=== PATIENT | male | born 1970 | race Two or more races ===

== ENCOUNTER 2024-06-20 08:45 | Emergency (ER) | payer MEDICAID, SELFPAY ==
[2024-06-20 08:53] VITALS: BP 132/87; PULSE 105; RESP 18; TEMP 37.1; O2SAT 94; BMI 29.3
--- NOTE | 2024-06-20 09:14 | PD.EDRME ---
Rapid Medical Screening Exam E Arrival date/time: 06/20/24 08:45 This is a 53-year-old male that comes in with complaints of abdominal distention, abdominal pain. Patient states that he needs the fluid removed from his abdomen. Patient has a history of cirrhosis and ascites. Patient reports that he used to be an alcoholic but he no longer drinks. Patient is taking diuretics but he says is not helping. I have greeted and performed a focused initial assessment of this patient. Initial appropriate labs ordered at this time. A comprehensive ED assessment and evaluation of the patient and analysis of all test and completion of medical decision making process will be conducted by additional ED provider. Chief Complaint: Abdominal Pain Time Seen by Provider: 06/20/24 09:00 Vital signs: Vital Signs Temperature 98.8 F 06/20/24 08:53 Pulse Rate 105 H 06/20/24 08:53 Respiratory Rate 18 06/20/24 08:53 Blood Pressure 132/87 H 06/20/24 08:53 Pulse Oximetry (%) 94 L 06/20/24 08:53 Oxygen Delivery Method Room Air 06/20/24 08:53
[2024-06-20 10:05] LABS: Collection Type, Urine Pedi-Bag
[2024-06-20 10:15] LABS: Basophils % (Auto) 1 % (0-2.5); Eosinophils # (Auto) 0.1 Thou/mm3 (0.0-0.5); Eosinophils % (Auto) 2 % (0-10); Hematocrit 42.3 % (41.0-53.0); Hemoglobin 14.9 g/dL (13.5-16.0); Immature Granulocytes % (Auto) 0 % (0-0); Immature Granulocytes Auto 0.01 Thou/mm3 (0.00-0.00); Lymphocytes # (Auto) 0.7 Thou/mm3 (1.0-4.8); Lymphocytes % (Auto) 14 % (10-50); Mean Corpuscular HGB Conc 35.2 g/dl (31.0-37.0); Mean Corpuscular Hemoglobin 34.7 pg (25.0-35.0); Mean Corpuscular Volume 98 fL (80-100); Monocytes # (Auto) 0.5 Thou/mm3 (0.0-0.8); Monocytes % (Auto) 10 % (0-12); Neutrophils # (Auto) 3.9 Thou/mm3 (1.8-7.7); Neutrophils % (Auto) 74 % (37-80); Nucleated Red Blood Cell % 0 /100 WBC (0); RDW Standard Deviation 56.6 fL (35.1-43.9); White Blood Count 5.3 Thou/mm3 (3.8-10.6)
[2024-06-20 10:34] LABS: Platelet Count 61 Thou/mm3 (140-440); Slide Review Platelets confirmed
[2024-06-20 10:37] LABS: INR 1.5 (0.9-1.3); Prothrombin Time 16.3 Seconds (9.0-12.2)
[2024-06-20 10:44] LABS: Alanine Aminotransferase 39 U/L (10-49); Albumin, Serum 3.6 gm/dL (3.5-5.0); Albumin/Globulin Ratio 0.9 (1.2-2.2); Alkaline Phosphatase 116 U/L (46-116); Anion Gap 9 (7-16); Aspartate Amino Transferase 67 U/L (0-34); BUN/Creatinine Ratio 11 Ratio (12-20); Bilirubin,Total 4.3 mg/dL (0.3-1.2); Blood Urea Nitrogen 8 mg/dL (9-23); Calcium 8.4 mg/dL (8.3-10.6); Calcium (Corrected) 8.7 mg/dL (8.5-10.1); Carbon Dioxide 27.4 mMol/L (20.0-31.0); Chloride 101 mMol/L (98-107); Creatinine (Component) 0.7 mg/dL (0.6-1.3); Estimated Creatinine Clearance 128.3 mL/min (>60); Globulin 3.9 gm/dL (2.3-3.5); Glucose 112 mg/dL (74-106); Lipase 41 U/L (12-53); Osmolality,Calculated 273 (275-295); Potassium 3.6 mMol/L (3.4-5.1); Sodium 137 mMol/L (136-145); Total Protein 7.5 gm/dL (5.7-8.2); eGFR > 60 See Note
[2024-06-20 11:01] LABS: Bacteria,Urine Rare; Bilirubin,Urine 1+ (Negative); Blood,Urine Negative (Negative); Calcium Oxalate Crystals,Urine 3+; Culture Indicated,Urine Not Indicated; Glucose, Urine Negative (Negative); Hyaline Casts,Urine < 1 /hpf (0-1); Ketones,Urine 1+ (Negative); Leukocyte Esterase,Urine Negative (Negative); Nitrite,Urine Negative (Negative); PH,Urine 6.5 (5.0-7.0); Protein,Urine 1+ (Neg - Trace); RBC,Urine 1 /hpf (0-3); Specific Gravity,Urine 1.026 (1.001-1.035); Squamous Epithelial Cell,Urine 2 /hpf (0-5); Urobilinogen,Urine Negative mg/dL (0.0-1.0); WBC,Urine 5 /hpf (0-5)
[2024-06-20 11:04] LABS: Clarity,Urine Hazy (Clear/Hazy); Color,Urine Drk Yellow (Lt Yel-Yel)
--- NOTE | 2024-06-20 11:50 | PD.EDADULT ---
ED General RME/HPI General Chief complaint: Abdominal Pain Stated complaint: ABDOMINAL PAIN WITH SWELLING Time Seen by Provider: 06/20/24 09:00 Arrival date/time: 06/20/24 08:45 CC: Abdominal distention abdominal pain HPI ongoing for the past 5 months progressive increase in severity. The patient denies any shortness of breath. Patient is known for cirrhosis of the liver. Patient has not prior had any paracentesis or thoracentesis. Patient is not in any acute distress. Denies fever chills chest pain or shortness of breath. RME / HPI RME / HPI narrative: 06/20/24 08:45 This is a 53-year-old male that comes in with complaints of abdominal distention, abdominal pain. Patient states that he needs the fluid removed from his abdomen. Patient has a history of cirrhosis and ascites. Patient reports that he used to be an alcoholic but he no longer drinks. Patient is taking diuretics but he says is not helping. I have greeted and performed a focused initial assessment of this patient. Initial appropriate labs ordered at this time. A comprehensive ED assessment and evaluation of the patient and analysis of all test and completion of medical decision making process will be conducted by additional ED provider. Related Data Home Medications ?Medication ?Instructions ?Recorded ?Confirmed furosemide 40 mg tablet 40 mg PO QDAY 02/07/18 02/07/18 hydrochlorothiazide 12.5 mg capsule 12.5 mg PO QDAY 02/07/18 02/07/18 potassium chloride 10 mEq 10 meq PO QDAY 02/07/18 02/07/18 capsule,extended release Previous Rx's ?Medication ?Instructions ?Recorded spironolactone 25 mg tablet 25 mg PO BID #60 tabs 02/08/18 Allergies Allergy/AdvReac Type Severity Reaction Status Date / Time No Known Allergies Allergy Verified 06/20/24 08:47 Review of Systems Review of Systems Narrative Review of Systems: GEN: No fever, no chills, no weight loss EYES: No discharge, no visual changes, no pain HEENT: No ear pain, no congestion, no sore throat PULM: No shortness of breath, no cough, no congestion CV: No chest pain, no dyspnea on exertion, no palpitations GI: No nausea, no vomiting, no diarrhea, + pain, +distention, no constipation : No frequency, no urgency, no dysuria MUSC/SKEL: No joint pain, no back pain SKIN: No rash PSYCH: No hallucinations, no depression HEME/LYMPH: No easy bleeding or bruising tendencies NEURO: No weakness, no headache ED Exam Narrative Physical exam: [General: Not in any acute distress Head normocephalic HEENT: Within acceptable limits Neck is supple nontender Chest equal chest rise nontender to palpation Respiratory: Clear to auscultation no wheezes crackles or rubs, no tachypnea CV: Rate rhythm is regular no murmurs rubs or clicks Abdomen is distended secondary to presumed ascites, and abdomen is tympanic to palpation. Abdomen is firm but not rigid skin is not shiny. Patient has a large soft nontender umbilical hernia. Back: No CVA tenderness no spinous process tenderness from cervical spine thoracic and lumbar spine Skin: Intact no petechiae rash induration ulceration or crepitus Extremities: Moving all extremity against resistance cap refill less than 2 seconds neurosensory intact Neuro: Awake alert oriented x3 Glascow coma 15 no focal deficits] Course Quality Measures none Orders Category Date Time Status CBC Stat Lab 06/20/24 09:42 Completed Comprehensive Metabolic Panel Stat Lab 06/20/24 09:42 Completed Lipase Stat Lab 06/20/24 09:42 Completed PT [Prothrombin Time with INR] Stat Lab 06/20/24 09:42 Completed Urinalysis, C/S if Indicated Stat Lab 06/20/24 09:45 Completed Vital Signs Vital signs: Vital Signs Temperature 98.8 F 06/20/24 08:53 Pulse Rate 105 H 06/20/24 08:53 Respiratory Rate 18 06/20/24 08:53 Blood Pressure 132/87 H 06/20/24 08:53 Pulse Oximetry (%) 94 L 06/20/24 08:53 Oxygen Delivery Method Room Air 06/20/24 08:53 Discharge Plan Plan Patient Disposition: HOME (Self Care) Patient condition on transfer: Stable Prescriptions/Referrals Prescriptions/Med Rec: No Action furosemide 40 mg Tablet 40 mg PO QDAY potassium chloride 10 mEq Capsule, Extended Release 10 meq PO QDAY hydrochlorothiazide 12.5 mg Capsule 12.5 mg PO QDAY spironolactone 25 mg Tablet 25 mg PO BID Qty: 60 0RF Referrals: Ethan Beck MD [Primary Care Provider] - In 1 week Problem List Clinical Impression: Distended abdomen, Abdominal pain Patient/Caregiver Discharge Instructions Education Materials: Abdominal Pain Additional Instructions: Return tomorrow for a paracentesis. Try to get here by 8:30 in the morning. Print Language: Irish Stand Alone Forms: Saundra Award Info., Work/School Release, Patient Portal Info Letter PA/MARKETING SUPPORT COORDINATOR Supervising Physician PA/PAMELA Supervising Physician: Waldemar Sutherland ENP MDM Clinical Information Provided by: patient Medical Records reviewed [facility] Meds/Rx considered, not ordered None Labs/Rad/Tests considered, not ordered None Chronic Illness/Social Conditions Explain: Cirrhosis Labs Lab(s) Interpretation(s): CBC shows no leukocytosis anemia thrombocytopenia PT of 16.3 INR 1.5 CMP shows no significant electrolyte imbalances or renal impairment T. bili of 4.3 AST at 67 ALT 39 alk phos of 116. Lipase 41 Urine is dark yellow 1+ protein 1+ bilirubin. Imaging Imaging Interpretation(s): Patient is not in any acute distress, he is not tachypneic, not in any acute distress. At this time patient will be discharged home to return tomorrow for IR paracentesis. Patient has agreed to return. Medication Administration(s) none Diagnosis Differential Diagnosis ED Complaint MDM: Ascites, hyperbilirubinemia, electrolyte imbalance
[2024-06-20 11:52] VITALS: BP 158/98; PULSE 100; RESP 18; TEMP 37.2; O2SAT 94
== END 2024-06-20 12:11 | disposition home or self-care (01) ==
PROVIDERS: Nurse Practitioner Family; Emergency Provider Emergency Medicine; PCP Family Medicine
DX: R14.0 Abdominal distension (gaseous) (principal); R10.9 Unspecified abdominal pain; K74.60 Unspecified cirrhosis of liver
CPT/HCPCS: 36415; 80053; 81001; 83690; 85025; 85610; 99283

== ENCOUNTER 2024-06-21 08:33 | Emergency (ER) | payer MEDICAID, SELFPAY ==
[2024-06-21 08:34] VITALS: BMI 29.5
[2024-06-21 08:42] VITALS: BP 131/82; PULSE 100; RESP 19; TEMP 37.2; O2SAT 95
--- NOTE | 2024-06-21 08:52 | XR_ITS ---
Examination: Ultrasound-guided paracentesis Abdominal sonogram limited Date and time of exam: June 21, 2024 1156 hours INDICATIONS: Cirrhosis, increasing ascites and abdominal distention this week Informed consent provided. A timeout was completed verifying correct patient, procedure, site, positioning, and special adequate movement if applicable. Technique: Multiple sonographic images of the abdomen have been obtained. Appropriate area for paracentesis was marked. Local anesthesia is obtained with 1% lidocaine. Yueh catheter is successfully introduced. Findings: Abdominal sonographic images demonstrate sufficient ascitic fluid for paracentesis. After placing the Yueh catheter, 8200 cc of fluid were successfully removed. During and after completion of the procedure the patient appear in satisfactory and stable condition with no complications observed. Estimated blood loss 0 cc Impression: Abdominal ascites Successful ultrasound-guided paracentesis as described above
--- NOTE | 2024-06-21 08:53 | XR_ITS ---
Examination: CT abdomen and pelvis without contrast. Coronal 3-D reconstructions. Sagittal 2-D reconstructions. Date and time of exam:June 21, 2024 0957 hours INDICATIONS: Generalized abdominal pain and swelling today TECHNIQUE: Multiple axial images abdomen and pelvis, low dose protocols, adjustment MA KV according to patient size FINDINGS: There is a large right pleural effusion with significant atelectasis right lung Cirrhosis, liver nodular in contour with significant ascites Splenomegaly 16 cm Gallstones No pancreatic mass No hydronephrosis Aorta normal size No bowel obstruction Normal appendix Fluid containing umbilical hernia Contracted urinary bladder with wall thickening anteriorly No prostatomegaly Mild osteopenia IMPRESSION: Large right pleural effusion Cirrhosis Prominent ascites Splenomegaly Urinary bladder wall thickening, differential would include cystitis
--- NOTE | 2024-06-21 10:25 | PD.EDRME ---
Rapid Medical Screening Exam RME Arrival date/time: 06/21/24 08:33 53-year-old male seen here yesterday presents emergency department today for complaints of abdominal distention patient was instructed to return for paracentesis Chief Complaint: Abdominal Pain Time Seen by Provider: 06/21/24 08:42 Vital signs: Vital Signs Temperature 98.9 F 06/21/24 08:42 Pulse Rate 100 06/21/24 08:42 Respiratory Rate 19 06/21/24 08:42 Blood Pressure 131/82 H 06/21/24 08:42 Pulse Oximetry (%) 95 06/21/24 08:42 Oxygen Delivery Method Room Air 06/21/24 08:42
--- NOTE | 2024-06-21 10:28 | XR_ITS ---
Examination: PA lateral chest 2 views TECHNIQUE: Upright PA lateral chest 2 views Exam date and time: June 21, 2024 at 12:03 PM INDICATIONS: Shortness of breath today. FINDINGS: Total opacification right hemithorax consistent with large right pleural effusion Mild prominence left ventricle Intact osseous structures IMPRESSION: Large right pleural effusion
--- NOTE | 2024-06-21 12:53 | PC.NURSE ---
PT CALLED BACK TO TAKE TO RM 19 X1 @[id number]. NO RESPONSE FROM LOBBY OR OUTSIDE.
[2024-06-21 13:37] VITALS: BP 118/74; PULSE 86; RESP 24; TEMP 37.1; O2SAT 98
--- NOTE | 2024-06-21 13:45 | PD.EDADULT ---
ED General RME/HPI General Chief complaint: Abdominal Pain Stated complaint: PATIENT HERE FOR PARACENTESIS Time Seen by Provider: 06/21/24 08:42 Arrival date/time: 06/21/24 08:33 CC: Shortness of breath HPI patient presents to the ER as instructed today for paracentesis patient has notes distended abdomen has been complaining of shortness of breath for the past several weeks. Saw him yesterday and he returns again today patient is awake alert oriented. No other complaints. RME / HPI RME / HPI narrative: 06/21/24 08:33 53-year-old male seen here yesterday presents emergency department today for complaints of abdominal distention patient was instructed to return for paracentesis Related Data Home Medications ?Medication ?Instructions ?Recorded ?Confirmed furosemide 40 mg tablet 40 mg PO QDAY 02/07/18 02/07/18 hydrochlorothiazide 12.5 mg capsule 12.5 mg PO QDAY 02/07/18 02/07/18 potassium chloride 10 mEq 10 meq PO QDAY 02/07/18 02/07/18 capsule,extended release Previous Rx's ?Medication ?Instructions ?Recorded spironolactone 25 mg tablet 25 mg PO BID #60 tabs 02/08/18 Allergies Allergy/AdvReac Type Severity Reaction Status Date / Time No Known Allergies Allergy Verified 06/21/24 08:34 Review of Systems Review of Systems Narrative Review of Systems: GEN: No fever, no chills, no weight loss EYES: No discharge, no visual changes, no pain HEENT: No ear pain, no congestion, no sore throat PULM: + shortness of breath, no cough, no congestion CV: No chest pain, no dyspnea on exertion, no palpitations GI: No nausea, no vomiting, no diarrhea, no pain, no constipation : No frequency, no urgency, no dysuria MUSC/SKEL: No joint pain, no back pain SKIN: No rash PSYCH: No hallucinations, no depression HEME/LYMPH: No easy bleeding or bruising tendencies NEURO: No weakness, no headache Past Medical History Past Medical History CARDIAC: Positive Cardiac Disorders and Hypertension; Negative Congestive Heart Failure RESPIRATORY: Negative Chronic Obstructive Pulmonary Disease (COPD) or Asthma GASTROINTESTINAL: Positive Cirrhosis GENITOURINARY: Negative Renal Disease ENDOCRINE: Negative Diabetes Mellitus Type 1 or Diabetes Mellitus Type 2 HEMATOLOGIC: Negative Sickle Cell Disease PSYCHO/SOCIAL: Positive Recreational Drug Use Family History FAMILY HISTORY: Negative Family Neurologic Problems, Family Psychiatric Problems, Family Respiratory Disorders, Family Cardiac Disorders, Family Gastrointestinal Problems, Family Cancer, Family Surgery or Family Anesthesia Reaction Social History SMOKING STATUS: Never smoker SUBSTANCE USE: does not use 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 ED Exam Narrative Physical exam: Post paracentesis [General: Not in any acute distress Head normocephalic HEENT: Within acceptable limits Neck is supple nontender Chest equal chest rise nontender to palpation Respiratory: Clear to auscultation no wheezes crackles or rubs remains tachypneic at a respiratory rate of 29 CV: Rate rhythm is regular no murmurs rubs or clicks Abdomen abdomen is flat soft umbilical hernia is now just a small ball of skin externally, it is not distended. Back: No CVA tenderness no spinous process tenderness from cervical spine thoracic and lumbar spine Skin: Intact no petechiae rash induration ulceration or crepitus Extremities: Moving all extremity against resistance cap refill less than 2 seconds neurosensory intact Neuro: Awake alert oriented x3 Glascow coma 15 no focal deficits] Course Course Course Narrative: Approximately 8 L was From his abdomen. CT shows the patient has extremely large right pleural effusion. As knowing that interventional radiology does not do both the floor and a paracentesis at the same time the patient is stable enough to discharge home and he is to return tomorrow for thoracentesis. Patient is in agreement with this plan. Currently we will give him albumin and discharge him home. Quality Measures none Orders Category Date Time Status Saline [Insert IV] NOW Care 06/21/24 13:[address] abdomen pelvis wo con Stat Exams 06/21/24 08:53 Completed US paracentesis abd w/image Stat Exams 06/21/24 08:52 Ordered XR chest 2V Stat Exams 06/21/24 10:28 Completed Albumin 25% 12.5gm Ivpb qday Med 06/21/24 13:44 Ordered Albumin Human 25% Ivpb [Albuminar-25 Ivpb] 12.5 gm in 50 ml IV QDAY Lidocaine 1% Pf 30 ml [Xylocaine 1% Pf 30 ml] Med 06/21/24 12:37 Discontinued 30 ml .ROUTE .STK-MED ONE Vital Signs Vital signs: Vital Signs Temperature 98.9 F 06/21/24 08:42 Pulse Rate 100 06/21/24 08:42 Respiratory Rate 19 06/21/24 08:42 Blood Pressure 131/82 H 06/21/24 08:42 Pulse Oximetry (%) 95 06/21/24 08:42 Oxygen Delivery Method Room Air 06/21/24 08:42 Discharge Plan Plan Patient Disposition: HOME (Self Care) Patient condition on transfer: Stable Prescriptions/Referrals Prescriptions/Med Rec: No Action furosemide 40 mg Tablet 40 mg PO QDAY potassium chloride 10 mEq Capsule, Extended Release 10 meq PO QDAY hydrochlorothiazide 12.5 mg Capsule 12.5 mg PO QDAY spironolactone 25 mg Tablet 25 mg PO BID Qty: 60 0RF Referrals: Candy Carrillo FNP-C [Primary Care Provider] - In 1 week Problem List Clinical Impression: Cirrhosis of liver with ascites, Pleural effusion Patient/Caregiver Discharge Instructions Education Materials: Paracentesis, Pleural Effusion, ED Ascites Additional Instructions: Rest, continue did not drink any alcohol return at 8:39 in the morning tomorrow for thoracentesis. Print Language: Zimbabwean Stand Alone Forms: Saundra Award Info., Patient Portal Info Letter PA/CRYOGENIC TRANSPORT DRIVER Supervising Physician CHARLIE/PAMELA Supervising Physician: Waldemar Sutherland ENP [facility] Labs/Rad/Tests considered, not ordered Describe: None Imaging Imaging Interpretation(s): Chest x-ray shows a very large pleural effusion CT of the abdomen shows a large amount of ascites and a large pleural effusion. Medication Administration(s) Medication Administration History Discontinued Medications Lidocaine HCl (Lidocaine Inj Pf 1% 30 Ml Vial) Confirm Administered Dose 30 ml .ROUTE .STK-MED ONE Stop: 06/21/24 12:38 Diagnosis Differential Diagnosis ED Complaint MDM: Ascites, pleural effusion, pneumonia
[2024-06-21] MEDS: ALBUMIN HUMAN 25% IVPB 12.5 GM/50 ML BTL IV (13:55)
[2024-06-21 15:45] VITALS: BP 118/80; PULSE 95; RESP 20; TEMP 37.4; O2SAT 97
[2024-06-21 16:29] VITALS: BP 122/85; PULSE 90; RESP 19; TEMP 37.4; O2SAT 96
== END 2024-06-21 16:30 | disposition home or self-care (01) ==
PROVIDERS: Emergency Provider Emergency Medicine
DX: K74.60 Unspecified cirrhosis of liver (principal); R18.8 Other ascites; J90 Pleural effusion, not elsewhere classified; K42.9 Umbilical hernia without obstruction or gangrene
CPT/HCPCS: 49083; 71046; 74176; 96365; 99284; C1729; P9047

== ENCOUNTER 2024-06-22 09:30 | Inpatient (IN) | payer MEDICAID, SELFPAY ==
[2024-06-22] VITALS (16 sets, daily range): BP systolic 91–150; BP diastolic 65–80; PULSE 78–102; RESP 17–98; TEMP 37.2–37.7; O2SAT 92–96; BMI 29.5
--- NOTE | 2024-06-22 | XR_ITS ---
Examination: IR fluoroscopically guided chest tube placement AP right chest 2 views Fluoroscopy Exam date and time: June 22, 2024 1148 hours INDICATIONS: Right pneumothorax postthoracentesis today TECHNIQUE AND FINDINGS: Informed consent provided. Timeout performed. Skin prepped over the right chest and sterile drape applied hand hygiene maximum barrier sterile technique 1% lidocaine administered for local anesthesia Utilizing fluoroscopic guidance 9 Japanese catheter placed in the right hemithorax Fluoroscopy 0.5 minute radiation dose 2.32 milligray 2 spot fluoroscopic chest films IMPRESSION: Successful fluoroscopically guided placement right chest tube Estimated blood loss 2 cc
--- NOTE | 2024-06-22 | XR_ITS ---
Examination: Upright PA chest single view Exam date and time: June 22, 2024 1228 hours TECHNIQUE: Upright PA chest single view INDICATIONS: Postthoracentesis. FINDINGS: Large right pneumothorax, at least 50% No shift of the trachea to the left Mild prominence left ventricle Residual mild right pleural fluid IMPRESSION: Large right pneumothorax requiring chest tube
--- NOTE | 2024-06-22 09:36 | XR_ITS ---
Examination: Ultrasound-guided right thoracentesis Ultrasound right hemithorax Ultrasound left hemithorax Exam date and time: The 2024 1039 hours INDICATIONS: Difficulty breathing this week, total opacification right hemithorax on chest x-ray yesterday TECHNIQUE AND FINDINGS: Grayscale sonographic images hemithoraces with large hyperdense fluid collection in the right hemithorax Informed consent provided. Timeout performed. Skin prepped over the right hemithorax and sterile drape applied maximum sterile barrier technique hand hygiene ultrasound sterile technique 1% lidocaine administered for local anesthesia Utilizing ultrasonographic guidance successful placement 5 Kenyan catheter in the right hemithorax 4000 cc sanguinous fluid removed IMPRESSION: Successful removal 4000 cc sanguinous fluid right hemithorax
--- NOTE | 2024-06-22 09:37 | PD.EDRME ---
Rapid Medical Screening Exam RME Arrival date/time: 06/22/24 09:30 53-year-old male returns to the emergency dept today was instructed return for thoracentesis as patient was found to have large pleural effusion right side yesterday Chief Complaint: General Adult/Misc Complain Time Seen by Provider: 06/22/24 09:36
[2024-06-22] MEDS: fentaNYL CIT INJ 50 mCg/ML AMP 2ML IVP (12:03)
[2024-06-22] MEDS: LIDOCAINE INJ PF 1% 30 ML VIAL 9 ML EPID (12:04)
--- NOTE | 2024-06-22 12:45 | XR_ITS ---
Examination: AP chest single view Technique one AP portable upright chest single view Exam date and time: June 22, 2024 1251 hours INDICATIONS: Post chest tube insertion FINDINGS: Large right pneumothorax remains Normal heart size Atelectasis left lung IMPRESSION: Large right pneumothorax remains Recommend increasing the Pleur-evac suction to medium
--- NOTE | 2024-06-22 12:58 | EDNOTE_ITS ---
ED General RME/HPI General Chief complaint: General Adult/Misc Complain Stated complaint: NEEDS THORACENTESIS Time Seen by Provider: 06/22/24 09:36 Arrival date/time: 06/22/24 09:30 CC: Right-sided chest tube secondary to pneumothorax secondary to thoracentesis. HPI patient was in interventional radiology suite was getting a thoracentesis when the lung deflated. Chest tube was promptly placed by interventional radiologist see his note. Patient currently has no shortness of breath or difficulty breathing. Patient is awake alert oriented past medical history includes alcoholic cirrhosis. Patient was seen here yesterday for a paracentesis of approximately 8 L. Patient has no specific complaints at this time. IR report confirmed so 4 L removed from the right pleural effusion. RME / HPI RME / HPI narrative: 06/22/24 09:30 53-year-old male returns to the emergency dept today was instructed return for thoracentesis as patient was found to have large pleural effusion right side yesterday Related Data Home Medications ?Medication ?Instructions ?Recorded ?Confirmed furosemide 40 mg tablet 40 mg PO QDAY 02/07/1802/07 hydrochlorothiazide 12.5 mg capsule 12.5 mg PO QDAY 02/07/18 potassium chloride 10 mEq 10 meq PO QDAY 02/07/1801/18 capsule,extended release Previous Rx's ?Medication ?Instructions ?Recorded spironolactone 25 mg tablet 25 mg PO BID #60 tabs 01/18 05/04 Allergies Allergy/AdvReac Type Severity Reaction Status Date / Time No Known Allergies Allergy Verified 06/22/24 09:32 Review of Systems Review of Systems Narrative Review of Systems: GEN: No fever, no chills, no weight loss EYES: No discharge, no visual changes, no pain HEENT: No ear pain, no congestion, no sore throat PULM: No shortness of breath, no cough, no congestion CV: + chest pain, no dyspnea on exertion, no palpitations GI: No nausea, no vomiting, no diarrhea, no pain, no constipation : No frequency, no urgency, no dysuria MUSC/SKEL: No joint pain, no back pain SKIN: No rash PSYCH: No hallucinations, no depression HEME/LYMPH: No easy bleeding or bruising tendencies NEURO: No weakness, no headache Past Medical History Past Medical History CARDIAC: Positive Cardiac Disorders and Hypertension; Negative Congestive Heart Failure RESPIRATORY: Negative Chronic Obstructive Pulmonary Disease (COPD) or Asthma GASTROINTESTINAL: Positive Cirrhosis GENITOURINARY: Negative Renal Disease ENDOCRINE: Negative Diabetes Mellitus Type 1 or Diabetes Mellitus Type 2 HEMATOLOGIC: Negative Sickle Cell Disease PSYCHO/SOCIAL: Positive Recreational Drug Use Family History FAMILY HISTORY: Negative Family Neurologic Problems, Family Psychiatric Problems, Family Respiratory Disorders, Family Cardiac Disorders, Family Gastrointestinal Problems, Family Cancer, Family Surgery or Family Anesthesia Reaction Social History SMOKING STATUS: Never smoker SUBSTANCE USE: does not use 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 ED Exam Narrative Physical exam: [General: In mild discomfort but not in any acute distress Head normocephalic HEENT: Eyes pupils are PERRLA EOMs are intact although the subsystems of HEENT are within acceptable limits Neck is supple nontender Chest equal chest rise nontender to palpation Respiratory: Diminished in the base on the right side upper lobes are clear. No crackles or wheezes. CV: Rate rhythm is regular no murmurs rubs or clicks Abdomen is distended secondary to body habitus soft nontender large deflated umbilical hernia. Positive bowel sounds all 4 quadrants Back: No CVA tenderness no spinous process tenderness from cervical spine thoracic and lumbar spine Skin: Intact no petechiae rash induration ulceration or crepitus Extremities: Moving all extremity against resistance cap refill less than 2 seconds neurosensory intact. No lower extremity edema. Neuro: Awake alert oriented x3 Glascow coma 15 no focal deficits] Course Course Course Narrative: Patient's case discussed with Dr. Watson at 1330, after the second chest x-ray was taken showing the continued large pneumothorax. The Dr Tran state that he did a cut off on the thoracentesis at 4 L as it continued to drain. He suspects that the chest tubes continue to drain the fluid that remains in the cavity and it ultimately this will clear out and reinflate the lung. Patient is presented to the resident for Dr. Pederson, agree to accept the patient for admission Quality Measures none Orders Category Date Time Status Saline [Insert IV] NOW Care 06/22/24 12:[address] chest abdomen pelvis wo Stat Exams 06/22/24 13:46 Completed IR chest tube insertion Stat Exams 06/22/24 Completed US thoracentesis Stat Exams 06/22/24 09:36 Completed XR chest 1V Stat Exams 06/22/24 13:10 Completed XR chest 1V post procedure Routine Exams 06/22/24 12:45 Completed XR chest 1V post procedure Stat Exams 06/22/24 Completed CBC Stat Lab 06/22/24 14:20 Completed CMP [Comprehensive Metabolic Panel] Stat Lab 06/22/24 14:20 Completed Lipase Stat Lab 06/22/24 14:20 Completed PT [Prothrombin Time with INR] Stat Lab 06/22/24 14:20 Completed PTT [Partial Thromboplastin Time] Stat Lab 06/22/24 14:20 Completed Lidocaine 1% Pf 30 ml [Xylocaine 1% Pf 30 ml] Med 06/22/24 10:24 Discontinued 30 ml .ROUTE .STK-MED ONE Lidocaine 1% Pf 30 ml [Xylocaine 1% Pf 30 ml] Med 06/22/24 11:36 Discontinued 30 ml .ROUTE .STK-MED ONE Lidocaine 1% Pf 30 ml [Xylocaine 1% Pf 30 ml] Med 06/22/24 12:02 Discontinued 9 ml EPID X1 ONE NALOXONE INJ (Vial) [Narcan Inj (Vial)] Med 06/22/24 11:37 Discontinued 0.4 mg .ROUTE .STK-MED ONE Ondansetron Inj [Zofran Inj] Med 06/22/24 11:37 Discontinued 4 mg .ROUTE .STK-MED ONE fentaNYL INJ [Sublimaze Inj] Med 06/22/24 11:37 Discontinued 100 mcg .ROUTE .STK-MED ONE fentaNYL INJ [Sublimaze Inj] Med 06/22/24 12:03 Discontinued 50 mcg IVP X1 ONE Vital Signs Vital signs: Vital Signs Temperature 99.3 F 06/22/24 09:42 Pulse Rate 102 H 06/22/24 09:42 Respiratory Rate 20 06/22/24 09:42 Blood Pressure 114/80 06/22/24 09:42 Pulse Oximetry (%) 95 06/22/24 09:42 Oxygen Delivery Method Room Air 06/22/24 09:42 Discharge Plan Plan Patient Disposition: Other Care w/in Hosp ([facility]) Patient condition on transfer: Stable Prescriptions/Referrals Prescriptions/Med Rec: No Action furosemide 40 mg Tablet 40 mg PO QDAY potassium chloride 10 mEq Capsule, Extended Release 10 meq PO QDAY hydrochlorothiazide 12.5 mg Capsule 12.5 mg PO QDAY spironolactone 25 mg Tablet 25 mg PO BID Qty: 60 0RF Referrals: No Primary/Family,Physician [Primary Care Provider] - In 1 week Problem List Clinical Impression: Pneumothorax, Pleural effusion, Ascites Patient/Caregiver Discharge Instructions Print Language: Arabic Stand Alone Forms: Saundra Award Info., Patient Portal Info Letter PA/EDUCATION GENERAL MANAGER Supervising Physician PA/EDUCATION GENERAL MANAGER Supervising Physician: Waldemar Sutherland ENP [facility] Medication Administration(s) Medication Administration History Discontinued Medications Fentanyl Citrate (Fentanyl Cit Inj 50 Mcg/Ml Amp 2ml) Confirm Administered Dose 100 mcg .ROUTE .STK-MED ONE Stop: 06/22/24 11:38 Last Admin: 06/22/24 12:22 Dose: Not Given Documented By: DL Non-Admin Reason: Duplicate Medication on eMAR Fentanyl Citrate (Fentanyl Cit Inj 50 Mcg/Ml Amp 2ml) 50 mcg IVP X1 ONE Stop: 06/22/24 12:04 Last Admin: 06/22/24 12:03 Dose: 50 mcg Documented By: DL Lidocaine HCl (Lidocaine Inj Pf 1% 30 Ml Vial) Confirm Administered Dose 30 ml .ROUTE .STK-MED ONE Stop: 06/22/24 10:25 Last Admin: 06/22/24 12:59 Dose: Not Given Documented By: RD Non-Admin Reason: Duplicate Medication on eMAR Lidocaine HCl (Lidocaine Inj Pf 1% 30 Ml Vial) Confirm Administered Dose 30 ml .ROUTE .STK-MED ONE Stop: 06/22/24 11:37 Last Admin: 06/22/24 12:23 Dose: Not Given Documented By: DL Non-Admin Reason: Duplicate Medication on eMAR Lidocaine HCl (Lidocaine Inj Pf 1% 30 Ml Vial) 9 ml EPID X1 ONE Stop: 06/22/24 12:03 Last Admin: 06/22/24 12:04 Dose: 9 ml Documented By: DL Comments: given by Caden Robles Naloxone HCl (Naloxone Inj 0.4 Mg/Ml Vial) Confirm Administered Dose 0.4 mg .ROUTE .STK-MED ONE Stop: 06/22/24 11:38 Last Admin: 06/22/24 12:22 Dose: Not Given Documented By: DL Non-Admin Reason: not needed Ondansetron HCl (Ondansetron Inj 2 Mg/Ml Inj 2 Ml) Confirm Administered Dose 4 mg .ROUTE .STK-MED ONE Stop: 06/22/24 11:38 Last Admin: 06/22/24 12:22 Dose: Not Given Documented By: DL Non-Admin Reason: Duplicate Medication on eMAR
--- NOTE | 2024-06-22 13:10 | XR_ITS ---
Examination: AP chest single view TECHNIQUE: Sitting AP portable chest single view Exam date and time: June 22, 2024 1318 hours INDICATIONS: Pneumothorax postthoracentesis today. FINDINGS: There remains large right pneumothorax Chest tube on the right satisfactory position Normal heart size IMPRESSION: There remains large right pneumothorax
--- NOTE | 2024-06-22 13:46 | XR_ITS ---
Examination: CT chest, without intravenous contrast. CT abdomen, without intravenous contrast. CT pelvis, without intravenous contrast. 2-D sagittal and coronal reconstructions. 3-D reconstructions. Date and time of exam:June 22, 2024 at 1449 hours INDICATIONS: Status post right thoracentesis, hemothorax CTDI vol (mgy) 7.46 DLP (MGycm)592 Technique: Multiple CT images, 3.0 mm slice thickness, obtained chest, abdomen, pelvis, with the high-resolution 64 slice scanner.. Sagittal and coronal 2-D reconstructions are obtained. 3-D reconstructions Low dose protocols were performed. One or more of the following dose reduction techniques were used; automated exposure control, adjustment of the mA and/or KV according to patient size, use of iterative reconstruction technique. Findings: Right chest tube satisfactory position 60% right pneumothorax Mild to moderate residual pleural fluid Atelectasis in the right lower lobe Diffuse pneumonia in the left lung No definite mediastinal adenopathy on this noncontrast study Cirrhosis, gallbladder wall thickening Gallstones Splenomegaly Mild to moderate ascites No bowel obstruction No hydronephrosis Normal appendix Fluid containing umbilical hernia Minimal thickening of urinary bladder wall No prostatomegaly Moderate osteopenia IMPRESSION: Right chest tube is in satisfactory position on the current study Recommend increasing in the Pleur-evac suction as significant right pneumothorax remains No obvious mediastinal lymphadenopathy Cirrhosis Cholelithiasis Splenomegaly Mild to moderate ascites
--- NOTE | 2024-06-22 14:39 | PC.NURSE ---
Patient came to cathlab needing a chest tube insertion after patient developed a pneumothorax from a throacentesis, History obtained from pateint at bed side and IV was put in at bedside in cathlab, patient taken to IR for chest tube insertion. once Chest tube inserted patient was taken to ED and connected the chest tube in his room at medium continuos suction per MD Collado Verbal order . report given to TREE Culp
[2024-06-22 14:40] LABS: Basophils % (Auto) 1 % (0-2.5); Eosinophils % (Auto) 1 % (0-10); Hematocrit 39.5 % (41.0-53.0); Hemoglobin 13.9 g/dL (13.5-16.0); Immature Granulocytes % (Auto) 0 % (0-0); Immature Granulocytes Auto 0.02 Thou/mm3 (0.00-0.00); Lymphocytes # (Auto) 0.6 Thou/mm3 (1.0-4.8); Lymphocytes % (Auto) 11 % (10-50); Mean Corpuscular HGB Conc 35.2 g/dl (31.0-37.0); Mean Corpuscular Hemoglobin 34.5 pg (25.0-35.0); Mean Corpuscular Volume 98 fL (80-100); Monocytes # (Auto) 0.7 Thou/mm3 (0.0-0.8); Monocytes % (Auto) 12 % (0-12); Neutrophils # (Auto) 4.3 Thou/mm3 (1.8-7.7); Neutrophils % (Auto) 75 % (37-80); Nucleated Red Blood Cell % 0 /100 WBC (0); RDW Standard Deviation 54.7 fL (35.1-43.9); Red Blood Count 4.03 Miln/mm3 (4.50-5.90); White Blood Count 5.7 Thou/mm3 (3.8-10.6)
[2024-06-22 14:41] LABS: Platelet Count 57 Thou/mm3 (140-440); Slide Review Platelets confirmed
[2024-06-22 14:52] LABS: INR 1.5 (0.9-1.3); Partial Thromboplastin Time 34.4 Seconds (22.0-36.0); Prothrombin Time 16.3 Seconds (9.0-12.2)
[2024-06-22 14:53] LABS: Alanine Aminotransferase 31 U/L (10-49); Albumin/Globulin Ratio 0.9 (1.2-2.2); Alkaline Phosphatase 83 U/L (46-116); Anion Gap 5 (7-16); Aspartate Amino Transferase 40 U/L (0-34); BUN/Creatinine Ratio 18 Ratio (12-20); Bilirubin,Total 2.5 mg/dL (0.3-1.2); Blood Urea Nitrogen 11 mg/dL (9-23); Calcium 8.1 mg/dL (8.3-10.6); Calcium (Corrected) 8.9 mg/dL (8.5-10.1); Carbon Dioxide 27.2 mMol/L (20.0-31.0); Chloride 102 mMol/L (98-107); Creatinine (Component) 0.6 mg/dL (0.6-1.3); Globulin 3.2 gm/dL (2.3-3.5); Glucose 108 mg/dL (74-106); Lipase 40 U/L (12-53); Osmolality,Calculated 268 (275-295); Potassium 3.8 mMol/L (3.4-5.1); Sodium 134 mMol/L (136-145); Total Protein 6.2 gm/dL (5.7-8.2); eGFR > 60 See Note
[2024-06-22] MEDS: MORPHINE SULF INJ 10 MG/ML VIAL 4 MG IVP (16:03)
--- NOTE | 2024-06-22 16:31 | PD.RESHP ---
Documentation for date of: 06/22/24 HPI History of Present Illness Chief complaint: SOB, Pneumothorax History of present illness: HPI: Patient is a 53-year-old male with a past medical history significant for alcoholic cirrhosis with ascites presenting today with a chief complaint of shortness of breath x 1 day. Patient developed shortness of breath last night while trying to sleep. This was associated with a 3 pillow orthopnea and PND. Denied any cough, fever, vomiting, nausea, chills, chest pain and palpitations. Yesterday he presented to the ED and a large-volume paracentesis was performed for his significant ascites. 8.2 L of fluid were drained and the patient received 12.5 g of albumin IV following the procedure. He again presented today after experiencing shortness of breath last night. On imaging it was found that he had significant right pleural effusion and thoracentesis was done which drained an additional 4 L of fluid. The procedure was complicated by a right pleural effusion and a right sided chest tube was subsequently placed and connected to underwater seal. At the time of the encounter the underwater seal was filled with approximately 1200 cc of serosanguineous fluid. Of note patient had an admission in 2018 for anasarca secondary to decompensated cirrhosis. He endorses that his last alcoholic drink was 2 weeks ago. ED course: BP 108/72, pulse 89, RR 20, T99.8F, SpO2 96% on 3L via NC. Labs significant for Hb 13.9, PLT 57, BUN 11, CR 0.6, INR 1.5, T. bili 2.5, albumin 3. CT chest/abdomen/pelvis significant for right chest tube in situ, rather mild to moderate right pleural effusion. Right-sided pneumothorax. Umbilical hernia and mild to moderate ascites. In the ED patient received morphine 4 Mg IV x 1. Patient will be admitted for treatment and management of right-sided pneumothorax. Review of Systems Review of Systems Narrative Review of Systems: GENERAL: Denies fever/chills or diaphoresis. HEENT: Denies headaches or visual changes. Denies discharge. Neuro: Denies unusual weakness or difficulty speaking. CARDIO: As above PULM: As above GI: Denies abdominal pain, N/V/C/D. Reports having BMs. URO: Denies burning/itching/pain/urinary changes. MSK/EXT/SKIN: Denies joint/skeletal/muscle pain, issues/changes in upper or lower extremities, itchiness, or superficial pain. PSYCH: Cooperative, pleasant mood & affect. The rest of the review of systems is otherwise negative. Past Medical History Past Medical History Comments PMH COMMENT: Past medical history: Decompensated alcoholic cirrhosis with ascites [2018] Medication list: Furosemide 20 Mg p.o. daily Past surgical history: Nil Allergies: NKFDA Social history: Occupational History: Currently unemployed. 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 Has 2 kids Tobacco use: Denies ETHO use: Previously a heavy drinker, would drink a case of beers on weekends. Last drink 2 weeks ago Illicit drug use: Denies Social History Note: Lives alone Family History: No significant history Exam Vital Signs Temp Pulse Resp BP Pulse Ox O2 Del Method O2 Flow Rate 99.5 F 82 20 91/67 95 Room Air 3 06/22/24 16:23 06/22/24 16:23 06/22/24 16:23 06/22/24 16:23 06/22/24 16:23 06/22/24 16:23 06/22/24 14:04 Narrative Exam Constitutional Alert, oriented x 3 and comfortable. Middle-age male, scleral icterus HEENT Vision grossly intact. Patent nares. Trachea midline Respiratory Right-sided chest tube in situ, decreased air entry globally with crackles at right mid to lower zone Cardiovascular S1 and S2 audible, RRR. No murmurs carotid bruit. No gross JVD. Abdominal Firm, distended, positive fluid thrill, umbilicus everted, BS +. Genitourinary No bladder tenderness, no flank pain. Normal to palpation Musculoskeletal Extremities tone within normal limits. No LE edema. Neurological CN II - XII grossly intact. Extremity motor and sensation grossly intact. Negative for asterixis Skin Warm, dry and intact. No apparent lesions. Psychiatric Patient has good affect, is cooperative Results: Labs 06/23/24 04:55 06/23/24 04:55 Labs: Short CBC 06/22/24 Range/Units 14:20 WBC 5.7 (3.8-10.6) Thou/mm3 Hgb 13.9 (13.5-16.0) g/dL Hct 39.5 L (41.0-53.0) % Plt Count 57 L (140-440) Thou/mm3 BMP 06/22/24 14:20 Sodium 134 L Potassium 3.8 Chloride 102 Carbon Dioxide 27.2 BUN 11 Creatinine 0.6 Glucose 108 H Calcium 8.1 L Liver Function 06/22/24 Range/Units 14:20 Total Bilirubin 2.5 H D (0.3-1.2) mg/dL AST 40 H (0-34) U/L ALT 31 (10-49) U/L Alkaline Phosphatase 83 D (46-116) U/L Albumin 3.0 L D (3.5-5.0) gm/dL Quality Measures Quality Measures none Medications Home Medications and Allergies Home Medications ?Medication ?Instructions ?Recorded ?Confirmed ?Type furosemide 40 mg tablet 40 mg PO QDAY 02/07/18 06/22/24 History Allergies Allergy/AdvReac Type Severity Reaction Status Date / Time No Known Allergies Allergy Verified 06/22/24 09:32 Visit Medications Discontinued Medications Fentanyl Citrate (Fentanyl Cit Inj 50 Mcg/Ml Amp 2ml) 50 mcg IVP X1 ONE Stop: 06/22/24 12:04 Last Admin: 06/22/24 12:03 Dose: 50 mcg Lidocaine HCl (Lidocaine Inj Pf 1% 30 Ml Vial) 9 ml EPID X1 ONE Stop: 06/22/24 12:03 Last Admin: 06/22/24 12:04 Dose: 9 ml Morphine Sulfate (Morphine Sulf Inj 10 Mg/Ml Vial) 4 mg IVP X1 ONE Stop: 06/22/24 15:52 Last Admin: 06/22/24 16:03 Dose: 4 mg Assessment & Plan Plan Patient is a 53-year-old male with a past medical history significant for alcoholic cirrhosis with ascites presenting today with a chief complaint of shortness of breath x 1 day. Patient will be admitted for treatment and management of right-sided pneumothorax. Iatrogenic right pneumothorax secondary to thoracentesis Right-sided pleural effusion Patient presented with shortness of breath since last night. On exam had reduced air entry on right lung. Chest x-ray revealed a large right-sided pleural effusion. CT chest/abdomen/pelvis significant for right chest tube in situ, rather mild to moderate right pleural effusion. Right-sided pneumothorax. Umbilical hernia and mild to moderate ascites. Plan: ? Supplemental O2 via NC ? Repeat chest x-ray at 5 AM tomorrow ? Continue management of chest drain ? To consider pulmonology consult tomorrow Decompensated alcoholic cirrhosis with ascites, thrombocytopenia and coagulopathy Ascites s/p large-volume paracentesis 06/21/2024 Hypoalbuminemia Hyperbilirubinemia DDx: Infectious, autoimmune, alcohol induced, medication side effect Patient previously had alcohol abuse disorder. Last drink was 2 weeks ago On exam as marked ascites. PLT 57, PT 16.3, INR 1.5, T. bili 2.5 MELD-Na ; 18 points; 3-4%. 90-day mortality Child-Reyez ; Class B. Indication for transplant evaluation. Abdominal surgery xiomara-operative mortality 30% Plan: ? Cardiac diet ? Ammonia level ordered ? Hepatitis panel ? Autoimmune hepatitis screen ordered ? Urine drug screen and alcohol level ordered ? Albumin 62.5 g IV x 1 ? Midodrine 10 Mg p.o. 3 times daily Health maintenance: Disposition: Chest tube on under waterseal. Repeat chest x-ray tomorrow. IV albumin Diet : Cardiac Lines: pIVs GI Prophylaxis: None Thrombo Prophylaxis: SCDs Code status: FULL CODE Plan of care discussed with Attending Dr. Bg Fu MD PGY 1 Disclaimer: This note was dictated by speech recognition. Minor errors in supervisor rose grading may be present due to voice recognition software. Attending Provider Attestation/Addendum I attest that I was physically present for the evaluation, physical examination, lab and imaging review of the patient with the residents. I discussed the case with the residents and agree with the findings and plans of care as documented above. Patient is a 53 years old male with past medical history of alcoholic cirrhosis with ascites who presented to the ED with complaint of shortness of breath. Patient had underwent paracentesis yesterday with removal of 8.2 L of fluid. In the ED today, he underwent thoracentesis for right pleural effusion and 4 L of pleural fluid was removed. Patient developed right-sided pneumothorax during the procedure and right-sided chest tube was placed by IR. Vital signs were stable. Saturating well on 3 L of oxygen. Lab results are significant for platelets of 57, INR 1.5, total bilirubin 2.5, albumin 3. CT of the chest/abdomen/pelvis was obtained, which shows right-sided chest tube, mild to moderate right pleural effusion and right-sided pneumothorax. Also shows umbilical hernia with mild to moderate ascites. At bedside, patient has decreased breath sounds on the right side, chest tube is draining more than 1500 cc on the waterseal. Patient appears comfortable and complains of chest pain at the site of chest tube insertion. We will admit the patient for management of right-sided pneumothorax secondary to thoracentesis procedure. We will continue with the chest tube on suction. Plan to reevaluate with follow-up x-ray in the morning and discussed with pulmonology if patient continues to have significant drainage. Neymar Pederson MD
[2024-06-22] MEDS: MIDODRINE 5 MG TABLET 10 MG PO ×2 (17:54→22:34)
[2024-06-22] MEDS: ALBUMIN HUMAN 25% IVPB 25 GM/100 ML BTL IV ×2 (17:55→19:26)
[2024-06-22] MEDS: MORPHINE SULF INJ 10 MG/ML VIAL 2 MG IVP (17:56)
[2024-06-22 18:25] LABS: Ammonia < 10 uMol/L (11-32)
[2024-06-22] MEDS: ALBUMIN HUMAN 25% IVPB 12.5 GM/50 ML BTL IV (20:29)
[2024-06-22] MEDS: HYDROcodone/APAP 5/325 TABLET 1 TAB PO (21:55)
[2024-06-22 23:48] LABS: Alcohol, Urine Negative (Negative); Amphetamine/Methamp Scrn,U Negative (Negative); Barbiturate Screen,Urine Negative (Negative); Benzodiazepines Screen,Urine Negative (Negative); Benzoylecgonine Screen, Ur Negative (Negative); Fentanyl Screen,Urine Positive (Negative); Opiate Screen,Urine Positive (Negative); THC Screen,Urine Negative (Negative)
[2024-06-23] VITALS (16 sets, daily range): BP systolic 103–118; BP diastolic 68–82; PULSE 64–134; RESP 16–94; TEMP 36.1–36.6; O2SAT 92–97
--- NOTE | 2024-06-23 05:00 | XR_ITS ---
Examination: AP chest single view Technique one AP portable upright chest single view Presented time: June 23, 2024 0608 hours Comparison June 22, 2024 INDICATIONS: History right pneumothorax postthoracentesis post chest tube placement FINDINGS: Improved expansion right lung but persistent 40% right pneumothorax, right chest tube satisfactory position Mild prominence left ventricle Opacity in the lower lung zones seen consistent with pneumonia. IMPRESSION: Improved aeration right lung but persistent 40% right pneumothorax
[2024-06-23] MEDS: HYDROcodone/APAP 5/325 TABLET 1 TAB PO ×3 (05:11→21:15)
[2024-06-23] MEDS: MIDODRINE 5 MG TABLET 10 MG PO ×3 (05:12→23:29)
[2024-06-23 06:04] LABS: Misc Send Out* See Sep Rpt
--- NOTE | 2024-06-23 06:04 | PC.NURSE ---
Pleur evac container changed.
[2024-06-23 06:28] LABS: Basophils % (Auto) 1 % (0-2.5); Eosinophils # (Auto) 0.1 Thou/mm3 (0.0-0.5); Eosinophils % (Auto) 3 % (0-10); Hematocrit 38.9 % (41.0-53.0); Hemoglobin 13.6 g/dL (13.5-16.0); Immature Granulocytes % (Auto) 0 % (0-0); Immature Granulocytes Auto 0.01 Thou/mm3 (0.00-0.00); Lymphocytes # (Auto) 0.8 Thou/mm3 (1.0-4.8); Lymphocytes % (Auto) 18 % (10-50); Mean Corpuscular Hemoglobin 34.8 pg (25.0-35.0); Mean Corpuscular Volume 100 fL (80-100); Monocytes # (Auto) 0.7 Thou/mm3 (0.0-0.8); Monocytes % (Auto) 15 % (0-12); Neutrophils # (Auto) 2.8 Thou/mm3 (1.8-7.7); Neutrophils % (Auto) 64 % (37-80); Nucleated Red Blood Cell % 0 /100 WBC (0); RDW Standard Deviation 55.7 fL (35.1-43.9); Red Blood Count 3.91 Miln/mm3 (4.50-5.90); White Blood Count 4.4 Thou/mm3 (3.8-10.6)
[2024-06-23 06:30] LABS: Platelet Count 61 Thou/mm3 (140-440)
[2024-06-23 07:08] LABS: INR 1.5 (0.9-1.3); Prothrombin Time 15.6 Seconds (9.0-12.2)
[2024-06-23 07:26] LABS: Glucose Estimated Average 82 mg/dL (80-131); Hemoglobin A1C 4.5 % Hgb (4.8-6.0)
[2024-06-23 07:39] LABS: Alanine Aminotransferase 25 U/L (10-49); Albumin, Serum 3.2 gm/dL (3.5-5.0); Albumin/Globulin Ratio 1.2 (1.2-2.2); Alkaline Phosphatase 79 U/L (46-116); Anion Gap 8 (7-16); Aspartate Amino Transferase 31 U/L (0-34); BUN/Creatinine Ratio 22 Ratio (12-20); Blood Urea Nitrogen 13 mg/dL (9-23); Calcium 7.9 mg/dL (8.3-10.6); Calcium (Corrected) 8.5 mg/dL (8.5-10.1); Carbon Dioxide 27.4 mMol/L (20.0-31.0); Chloride 102 mMol/L (98-107); Cholesterol 61 mg/dL (132-200); Creatinine (Component) 0.6 mg/dL (0.6-1.3); Estimated Creatinine Clearance 134.6 mL/min (>60); Globulin 2.6 gm/dL (2.3-3.5); Glucose 107 mg/dL (74-106); Osmolality,Calculated 273 (275-295); Phosphorous 3.3 mg/dL (2.4-5.1); Potassium 3.6 mMol/L (3.4-5.1); Sodium 137 mMol/L (136-145); Thyroid Stimulating Hormone 4.11 uIU/mL (0.55-4.78); Total Protein 5.8 gm/dL (5.7-8.2); Triglycerides 45 mg/dL (30-150); eGFR > 60 See Note
[2024-06-23 07:43] LABS: HDL Cholesterol 16 mg/dL (40-60)
[2024-06-23 07:44] LABS: Cardiac Risk Estimate 3.8 RATIO (4.0-6.7); LDL Cholesterol,Calculated 36 mg/dL (0-130)
[2024-06-23 07:57] LABS: Hepatitis A Antibody IgM Non Reactive (Non React); Hepatitis B Core Antibody IgM Non Reactive (Non React); Hepatitis B Surface Antigen Non Reactive (Non React); Hepatitis C Antibody Non Reactive (Non React)
--- NOTE | 2024-06-23 09:09 | PC.SS ---
Follow up note: Pt has chest tube. Waiting for clinical improvment.
[2024-06-23] MEDS: LACTULOSE SYRUP 20 GM/30 ML UDC 10 GM PO (09:10)
--- NOTE | 2024-06-23 09:29 | PD.PUCONS ---
HPI Pulmonology Consult Data of Consult Requesting Physician: Neymar Pederson MD Primary Care Provider: Physician No Primary/Family Consult Narrative History of present illness: Patient is a 53 year old male with PMH significant for cirrhosis. Only on lasix at home. He has ascites and was having dyspnea for pats few weeks. Decline and need for thoracentesis. Post procedure found to have PTX> Patient with no piror thoracentesis to date. No fever, chills, or night sweats. Weight has been stable. 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 Nonsmoker. No acute events overnight after chest tube placement. Pain better this morning now. Still has some dyspnea. Only walked to the bathroom so far. Ooutput 1380cc in past 24 hours. Chest film shows still has 60% Pneumothorax though improved form initial PTX cc:: cc: Neymar Pederson MD Review of Systems Review of Systems Narrative Review of Systems: Pertinent review of symptoms completed with significant findings in HPI above Past Medical History Past Medical History Comments PMH COMMENT: PMH/PSH/ Soc Hx/ Family Hx reviewed with pertinent findings in HPI above Meds Home Medications and Allergies Home Medications ?Medication ?Instructions ?Recorded ?Confirmed ?Type furosemide 40 mg tablet 40 mg PO QDAY 02/07/18 06/22/24 History Allergies Allergy/AdvReac Type Severity Reaction Status Date / Time No Known Allergies Allergy Verified 06/22/24 09:32 Exam Vital Signs Temp Pulse Resp BP Pulse Ox O2 Del Method O2 Flow Rate 98 F 79 20 102/70 93 L Room Air 3 06/25/24 07:25 06/25/24 08:31 06/25/24 07:25 06/25/24 08:31 06/25/24 07:25 06/25/24 07:25 06/23/24 08:00 Narrative Exam GEN: NAD, AAOX3, in no distress HEENT: supple, MMM, no crepitations or JVD CVS: S1/S2+ RRR PULM: Chest tube in place, drainage of clear yellow fluids ABD: soft, NT, ND, BS+ EXT: no pedal edema, no clubbing or cyanosis NEURO: Non focal gross examination PSYCH: Appropriate mood and affect Physical Exam Completion Physical Exam Complete?: Yes Results - Field Service Representative Labs 06/26/24 04:39 06/26/24 04:39 Labs: Short CBC 06/25/24 Range/Units 04:34 WBC 4.5 (3.8-10.6) Thou/mm3 Hgb 12.7 L (13.5-16.0) g/dL Hct 36.8 L (41.0-53.0) % Plt Count 85 L (140-440) Thou/mm3 BMP 06/25/24 04:34 Sodium 137 Potassium 3.7 Chloride 103 Carbon Dioxide 29.9 BUN 11 Creatinine 0.6 Glucose 100 Calcium 7.8 L Liver Function 06/25/24 Range/Units 04:34 Total Bilirubin 1.6 H D (0.3-1.2) mg/dL AST 34 (0-34) U/L ALT 28 (10-49) U/L Alkaline Phosphatase 65 (46-116) U/L Albumin 3.1 L (3.5-5.0) gm/dL Assessment & Plan Additional Plan Additional Plan: Post procedure PTX Hepatic hydrothorax Avoid suction due to large volume output and protein loss from this Promote recruitment of lung with ambulation, try to do 10-20 laps per day Stable on RA at this time Keep CT on water seal and only return to suction if symptomatic Lung may never fully expand if effusion was long standing and partially trapped Fluid appears to be transudative base don appearance and clinical scenario, follow up studies- expect it o reaccumulate Albumin ongoing and diuretics with lasix and aldactone may prove helpful but cautious use with renal function May need repeat thoracentesis in joanne run as outpatient Provider Notation Provider Notation: Although this document has been carefully reviewed, there may still be some phonetic and other typographical errors. These errors are purely grammatical due to imperfections in the software program and should not be construed in any way to compromise the substance of the patient's medical care during this visit. Thank you for the opportunity and privilege in assisting you with this patient's care and management.
[2024-06-23] MEDS: LIDOCAINE 5% 1 PATCH TOP (09:37)
[2024-06-23 10:06] LABS: Slide Review Platelets confirmed
[2024-06-23] MEDS: SODIUM CHLORIDE 0.9% 1000 ML 1,000 ML 80 ML IV (11:44)
[2024-06-23] MEDS: ALBUMIN HUMAN 25% IVPB 25 GM/100 ML BTL IV ×2 (11:44→14:08)
--- NOTE | 2024-06-23 13:00 | XR_ITS ---
Examination: AP chest single view TECHNIQUE: AP portable semiupright chest single view Exam date and time: June 23, 2024 1326 hours Comparison June 23, 2024 0605 hours INDICATIONS: History right pneumothorax post thoracentesis FINDINGS: Right chest tube satisfactory position Right apical lateral pneumothorax estimated 30% Mild prominence left ventricle Pneumonia right base IMPRESSION: Right chest tube satisfactory position Right pneumothorax estimated 30%
--- NOTE | 2024-06-23 14:28 | ESPR_ITS ---
<Statement entered by Elizabeth Love MD - 06/24/24 17:06> Patient is seen and examined at bedside, the ware carrier the plan had recommended to unclamp chest tube and put patient under waterseal and encourage mobilization. Will repeat chest x-ray tomorrow as his x-ray for today showed worsening of his pneumothorax. Will continue strict in and out, we will add albumin for today also. We also started the patient on scheduled midodrine to increase her blood pressure in order to follow-up perfuse his kidneys. We also put the patient on salt restrictions. We agree on the assessment and plan of this note. - Patient's plan and care discussed with my attending, Dr. David Love MD Internal Medicine PGY-2 Documentation for date of: 06/23/24 Subjective Subjective Interval history: Patient was seen and examined at bedside this AM. No acute exents overnight. Patient tolerating diet, adequate urine output and mentation is at baseline. Patient endorses improvement of shortness of breath. Has some pain at chest tube insertion site upon movement. Will prescribe lidocaine patch Pulmonology, Dr. Pike consulted who recommended to clamp the chest tube and obtain a repeat film. Chest tube output 6 L in past 24 hours. Chest x-ray this a.m. showed 40% pneumothorax. Repeat chest x-ray showed worsening of the pneumothorax. Will unclamp chest tube and connected on the waterseal without suction. Encourage patient to ambulate for re-expansion of lung Albumin 50 g IV x 1 ordered due to high output chest tube. Exam Vital Signs Temp Pulse Resp BP Pulse Ox O2 Del Method O2 Flow Rate 97.8 F 87 20 118/74 95 Room Air 3 06/23/24 12:37 06/23/24 14:01 06/23/24 12:37 06/23/24 14:01 06/23/24 12:37 06/23/24 12:37 06/23/24 08:00 Narrative Exam Constitutional Alert, oriented x 3 and comfortable. Middle-age male, scleral icterus HEENT Vision grossly intact. Patent nares. Trachea midline Respiratory Right-sided chest tube in situ, improved air entry in all lung bardales Cardiovascular S1 and S2 audible, RRR. No murmurs carotid bruit. No gross JVD. Abdominal Firm, distended, positive fluid thrill, umbilicus everted, BS +. Genitourinary No bladder tenderness, no flank pain. Normal to palpation Musculoskeletal Extremities tone within normal limits. No LE edema. Neurological CN II - XII grossly intact. Extremity motor and sensation grossly intact. Negative for asterixis Skin Warm, dry and intact. No apparent lesions. Psychiatric Patient has good affect, is cooperative Objective Labs 06/24/24 05:01 06/24/24 05:01 Labs: Laboratory Results - last 24 hr 06/22/24 06/22/24 06/22/24 14:20 18:00 22:45 WBC 5.7 RBC 4.03 L Hgb 13.9 Hct 39.5 L MCV 98 MCH 34.5 MCHC 35.2 RDW Std Deviation 54.7 H Plt Count 57 L Neut % (Auto) 75 Lymph % (Auto) 11 [place] % (Auto) 12 Eos % (Auto) 1 Baso % (Auto) 1 Neut # (Auto) 4.3 Lymph # (Auto) 0.6 L [place] # (Auto) 0.7 Eos # (Auto) 0.0 Baso # (Auto) 0.0 Immature Gran # (Auto) 0.02 H Absolute Nucleated RBC 0.00 Immature Gran % 0 Nucleated RBC % 0 PT 16.3 H INR 1.5 H APTT 34.4 Sodium 134 L Potassium 3.8 Chloride 102 Carbon Dioxide 27.2 Anion Gap 5 L BUN 11 Creatinine 0.6 Estim Creat Clear Calc 150.0 eGFR > 60 BUN/Creatinine Ratio [address] Glu mg/dL Hemoglobin A1c Calculated Osmolality 268 L Calcium 8.1 L Corrected Calcium 8.9 Phosphorus Magnesium Total Bilirubin 2.5 H D AST 40 H ALT 31 Alkaline Phosphatase 83 D Ammonia < 10 L Total Protein 6.2 Albumin 3.0 L D Globulin 3.2 Albumin/Globulin Ratio 0.9 L Triglycerides Cholesterol LDL Cholesterol, Calc HDL Cholesterol Cholesterol/HDL Ratio Lipase 40 TSH Urine Opiates Screen Positive A Urine Fentanyl Screen Positive A Ur Barbiturates Screen Negative U Amphetamin/Meth Scrn Negative U Benzodiazepines Scrn Negative U Cocaine Metab Screen Negative U Marijuana (THC) Screen Negative Urine Alcohol Negative Hepatitis A IgM Ab Hep Bs Antigen Hep B Core IgM Ab Hepatitis C Antibody Misc Test Result Platelets confirmed 06/23/24 04:55 WBC 4.4 RBC 3.91 L Hgb 13.6 Hct 38.9 L MCV 100 MCH 34.8 MCHC 35.0 RDW Std Deviation 55.7 H Plt Count 61 L Neut % (Auto) 64 Lymph % (Auto) 18 [place] % (Auto) 15 H Eos % (Auto) 3 Baso % (Auto) 1 Neut # (Auto) 2.8 Lymph # (Auto) 0.8 L [place] # (Auto) 0.7 Eos # (Auto) 0.1 Baso # (Auto) 0.0 Immature Gran # (Auto) 0.01 H Absolute Nucleated RBC 0.00 Immature Gran % 0 Nucleated RBC % 0 PT 15.6 H INR 1.5 H APTT Sodium 137 Potassium 3.6 Chloride 102 Carbon Dioxide 27.4 Anion Gap 8 BUN 13 Creatinine 0.6 Estim Creat Clear Calc 134.6 eGFR > 60 BUN/Creatinine Ratio 22 H Glucose [address] Glu mg/dL 82 Hemoglobin A1c 4.5 L Calculated Osmolality 273 L Calcium 7.9 L Corrected Calcium 8.5 Phosphorus 3.3 Magnesium 2.0 Total Bilirubin 2.0 H D AST 31 ALT 25 Alkaline Phosphatase 79 Ammonia Total Protein 5.8 Albumin 3.2 L Globulin 2.6 Albumin/Globulin Ratio 1.2 Triglycerides 45 Cholesterol 61 L LDL Cholesterol, Calc 36 HDL Cholesterol 16 L Cholesterol/HDL Ratio 3.8 L Lipase TSH 4.11 Urine Opiates Screen Urine Fentanyl Screen Ur Barbiturates Screen U Amphetamin/Meth Scrn U Benzodiazepines Scrn U Cocaine Metab Screen U Marijuana (THC) Screen Urine Alcohol Hepatitis A IgM Ab Non Reactive Hep Bs Antigen Non Reactive Hep B Core IgM Ab Non Reactive Hepatitis C Antibody Non Reactive Misc Test Result Platelets confirmed Quality Measures Quality Measures none Assessment & Plan Assessment Current Active Medications: Generic Name Dose Route Start Last Admin Trade Name Freq PRN Reason Stop Dose Admin Acetaminophen 650 mg 06/22/24 16:31 Acetaminophen 325 Mg Tablet PO 07/22/24 16:30 Q6H PRN Fever >100.3 or pain 1-3 Hydrocodone Bitart/Acetaminophen 1 tab 06/22/24 16:31 06/23/24 14:00 Hydrocodone/Apap 5/325 Tablet PO 06/27/24 16:30 1 tab Q4HR PRN Administration PAIN SCALE 4-10(Mod-Sev Albumin Human 25 gm in 100 mls @ 100 mls/hr 06/23/24 13:49 06/23/24 14:08 Albuminar-25 Ivpb IV 06/23/24 14:48 100 mls/hr X1 ONE Administration Lactulose 10 gm 06/23/24 09:00 06/23/24 09:10 Lactulose Syrup 20 Gm/30 Ml Udc PO 07/23/24 08:59 10 gm QDAY TOM Administration Protocol Midodrine 10 mg 06/22/24 16:45 06/23/24 14:01 Midodrine 5 Mg Tablet PO 07/22/24 16:44 10 mg TID TOM Administration Morphine Sulfate 2 mg 06/22/24 16:43 06/22/24 17:56 Morphine Sulf Inj 10 Mg/Ml Vial IVP 06/27/24 16:42 2 mg Q4HR PRN Administration BREAKTHROUGH PAIN Ondansetron HCl 4 mg 06/22/24 16:31 Ondansetron Inj 2 Mg/Ml Inj 2 Ml IV 07/22/24 16:30 Q6H PRN NAUSEA OR VOMITING Protocol Plan Patient is a 53-year-old male with a past medical history significant for alcoholic cirrhosis with ascites presenting today with a chief complaint of shortness of breath x 1 day. Patient will be admitted for treatment and management of right-sided pneumothorax. Iatrogenic right pneumothorax secondary to thoracentesis Right-sided pleural effusion Patient presented with shortness of breath since last night. On exam had reduced air entry on right lung. Chest x-ray revealed a large right-sided pleural effusion. CT chest/abdomen/pelvis significant for right chest tube in situ, rather mild to moderate right pleural effusion. Right-sided pneumothorax. Umbilical hernia and mild to moderate ascites. Chest tube output 6 L in past 24 hours. Chest x-ray this a.m. showed 40% pneumothorax. Repeat chest x-ray showed worsening of the pneumothorax. Plan: ? Supplemental O2 via NC ? Repeat chest x-ray at 5 AM tomorrow - Continue drainage of chest tube connected to underwater seal without suction. ? Encourage ambulation outpatient for reexpansion of lung. ? Lidocaine patch prescribed ? Pulmonology, Dr. Pike consulted. Appreciate recommendations Decompensated alcoholic cirrhosis with ascites, thrombocytopenia and coagulopathy Ascites s/p large-volume paracentesis 06/21/2024 Hypoalbuminemia Hyperbilirubinemia DDx: Infectious, autoimmune, alcohol induced, medication side effect, Toni's Patient previously had alcohol abuse disorder. Last drink was 2 weeks ago On exam as marked ascites. PLT 61, PT 16.3, INR 1.5, T. bili 2 Ammonia <10 Hepatitis panel negative MELD-Na ; 18 points; 3-4%. 90-day mortality Child-Reyez ; Class B. Indication for transplant evaluation. Abdominal surgery xiomara-operative mortality 30% On this admission patient received albumin 112.5 g IV in total Plan: ? Cardiac diet - 1500 cc/day fluid restriction ? Pending autoimmune screen including alpha-1 antitrypsin, ADEBAYO, ceruloplasmin, copper, IgG serum, LK M?1 antibody, mitochondrial antibody ? Albumin 50 g IV x 1 ? Midodrine 10 Mg p.o. 3 times daily Umbilical hernia Patient denies any pain On exam umbilicus everted, but reducible. No signs of incarceration or strangulation Plan: ? For outpatient management with general surgery Health maintenance: Disposition: Pending re-expansion of lung. Repeat chest x-ray tomorrow Diet: 2G sodium restricted. 1500 cc fluid restriction Lines: pIVs GI Prophylaxis: None Thrombo Prophylaxis: SCDs Code status: FULL CODE Plan of care discussed with Attending Dr. Pederson and PGY 2 Dr. Ivan Fu MD PGY 1 Disclaimer: This note was dictated by speech recognition. Minor errors in mold repairer may be present due to voice recognition software. Attending Provider Attestation/Addendum I attest that I was physically present for the evaluation, physical examination, lab and imaging review of the patient with the residents. I discussed the case with the residents and agree with the findings and plans of care as documented above. At bedside today, patient states she is feeling better and denies any new complaints. He states that he still has mild pain on the chest tube insertion site but improved compared to yesterday. Repeat chest x-ray this morning showed 40% pneumothorax, had more than 6 L drainage in last 24 hours, added additional 50 g of IV albumin and midodrine 10 mg 3 times daily. Consulted pulmonology, recommended clamping the chest tube and obtain follow-up chest x-ray, follow-up x-ray after clamping the chest tube showed worsening pneumothorax. Chest tube was then unclamped and started on waterseal without suction. We will also encourage ambulation for the patient and start him on lidocaine patch. We will obtain x-ray in a.m. Subash Holama, MD
[2024-06-23 16:21] LABS: Sodium,Urine Random < 10.0 mMol/L (20.0-110.0)
--- NOTE | 2024-06-23 16:23 | PC.SS ---
SS met with patient regarding his d/c plan.? Pt is alert/oriented.? Pt was admitted for Pneumothoeax.? Pt confirmed demographic and contact information is correct on facesheet.? Pt resides alone.? Pt ambulates independently without assistance or DME.? Pt is ok with all ADLs.? Patient?s pharmacy of choice is [facility] [address] Pt named his dtr, Marina Doss, phone# [phone] medical decision maker if he is unable.? Patient?s choice is to return home upon d/c.? Pt states he has an appointment with PCP June 29, 2024 at 11am.? Pt states he is not diabetic and not on dialysis. D/C plan:? Return home Next of Kin:? Marina Doss, dtr, phone# [phone] PCP:? [facility] Address:? Correct on facesheet
[2024-06-24] VITALS (13 sets, daily range): BP systolic 102–115; BP diastolic 67–74; PULSE 68–94; RESP 16–95; TEMP 36.2–36.7; O2SAT 94–96
[2024-06-24] MEDS: MIDODRINE 5 MG TABLET 10 MG PO ×3 (05:22→21:15)
--- NOTE | 2024-06-24 06:00 | XR_ITS ---
Examination: AP chest single view TECHNIQUE: AP portable upright chest single view Standing thymic gland June 24, 2024 0551 hours Comparison June 23, 2024 INDICATIONS: Right pneumothorax postthoracentesis post chest tube FINDINGS: Right chest tube satisfactory position Right pneumothorax 60% Mild prominence left ventricle IMPRESSION: Consider placement of a right surgical chest tube, which can be done in the radiology department, as clinically warranted
[2024-06-24 06:25] LABS: Basophils # (Auto) 0.1 Thou/mm3 (0.0-0.2); Basophils % (Auto) 1 % (0-2.5); Eosinophils # (Auto) 0.2 Thou/mm3 (0.0-0.5); Eosinophils % (Auto) 5 % (0-10); Hematocrit 38.3 % (41.0-53.0); Hemoglobin 13.6 g/dL (13.5-16.0); Immature Granulocytes % (Auto) 0 % (0-0); Immature Granulocytes Auto 0.01 Thou/mm3 (0.00-0.00); Lymphocytes % (Auto) 22 % (10-50); Mean Corpuscular HGB Conc 35.5 g/dl (31.0-37.0); Mean Corpuscular Hemoglobin 35.2 pg (25.0-35.0); Mean Corpuscular Volume 99 fL (80-100); Monocytes # (Auto) 0.5 Thou/mm3 (0.0-0.8); Monocytes % (Auto) 12 % (0-12); Neutrophils # (Auto) 2.7 Thou/mm3 (1.8-7.7); Neutrophils % (Auto) 60 % (37-80); Nucleated Red Blood Cell % 0 /100 WBC (0); RDW Standard Deviation 53.8 fL (35.1-43.9); Red Blood Count 3.86 Miln/mm3 (4.50-5.90); White Blood Count 4.5 Thou/mm3 (3.8-10.6)
[2024-06-24 06:29] LABS: Platelet Count 72 Thou/mm3 (140-440); Slide Review Platelets confirmed
[2024-06-24 06:37] LABS: INR 1.4 (0.9-1.3); Prothrombin Time 14.8 Seconds (9.0-12.2)
[2024-06-24 06:54] LABS: Alanine Aminotransferase 24 U/L (10-49); Albumin, Serum 3.3 gm/dL (3.5-5.0); Albumin/Globulin Ratio 1.4 (1.2-2.2); Alkaline Phosphatase 60 U/L (46-116); Anion Gap 3 (7-16); Aspartate Amino Transferase 31 U/L (0-34); BUN/Creatinine Ratio 13 Ratio (12-20); Bilirubin,Total 2.3 mg/dL (0.3-1.2); Blood Urea Nitrogen 8 mg/dL (9-23); Calcium 8.2 mg/dL (8.3-10.6); Calcium (Corrected) 8.8 mg/dL (8.5-10.1); Carbon Dioxide 28.6 mMol/L (20.0-31.0); Chloride 104 mMol/L (98-107); Creatinine (Component) 0.6 mg/dL (0.6-1.3); Estimated Creatinine Clearance 134.6 mL/min (>60); Globulin 2.3 gm/dL (2.3-3.5); Glucose 98 mg/dL (74-106); Osmolality,Calculated 270 (275-295); Potassium 4.1 mMol/L (3.4-5.1); Sodium 136 mMol/L (136-145); Total Protein 5.6 gm/dL (5.7-8.2); eGFR > 60 See Note
--- NOTE | 2024-06-24 09:29 | ESPR_ITS ---
Documentation for date of: 06/24/24 Subjective Subjective Interval history: Patient stable on water seal. No new complaints. Tolerating laps well. Staying off suction for now. Critical Care Note Critical care time (min.): 0 Exam Vital Signs Temp Pulse Resp BP Pulse Ox O2 Del Method O2 Flow Rate 98 F 79 20 102/70 93 L Room Air 3 06/25/24 07:25 06/25/24 08:31 06/25/24 07:25 06/25/24 08:31 06/25/24 07:06/25/24 07:06/23/24 08:00 Narrative Exam GEN: NAD, AAOX3 HEENT: No JVD CVS: S1/S2+ RRR PULM: Chest tube in place, tidaling large volume of clear yellow fluid ABD: distended with ascites EXT: No cyanosis/ clubbing, no peripheral edema Physical Exam Completion Physical Exam Complete?: Yes Objective - Nuclear Plant Equipment Operator Labs 06/26/24 04:39 06/26/24 04:39 Labs: Laboratory Results - last 24 hr 06/25/24 04:34 WBC 4.5 RBC 3.64 L Hgb 12.7 L Hct 36.8 L MCV 101 H MCH 34.9 MCHC 34.5 RDW Std Deviation 55.8 H Plt Count 85 L Neut % (Auto) 48 Lymph % (Auto) 29 [place] % (Auto) 16 H Eos % (Auto) 6 Baso % (Auto) 2 Neut # (Auto) 2.2 Lymph # (Auto) 1.3 [place] # (Auto) 0.7 Eos # (Auto) 0.3 Baso # (Auto) 0.1 Immature Gran # (Auto) 0.01 H Absolute Nucleated RBC 0.00 Immature Gran % 0 Nucleated RBC % 0 PT 14.1 H INR 1.3 Sodium 137 Potassium 3.7 Chloride 103 Carbon Dioxide 29.9 Anion Gap 4 L BUN 11 Creatinine 0.6 Estim Creat Clear Calc 134.6 eGFR > 60 BUN/Creatinine Ratio 18 Glucose 100 Calculated Osmolality 273 L Calcium 7.8 L Corrected Calcium 8.5 Total Bilirubin 1.6 H D AST 34 ALT 28 Alkaline Phosphatase 65 Total Protein 5.6 L Albumin 3.1 L Globulin 2.5 Albumin/Globulin Ratio 1.2 Assessment & Plan Additional Plan Additional Plan: Post proceudre PTX Hepatic hydrothorax Continue on water seal, tolerating well though chest film shows incomplete expansion of the lung Promote recruitment with mobilization Monitor output closely given risk of significant protein loss Patient would like to go home soon but reiterated importance of allowing time for air leak to close We will try to determine if a portal plerovac is available so that he can go home with this Will monitor closely for decline clinically or expansion of PTX further from here Albumin ongoing with diuretics, on only lasix at home and can add on aldactone Provider Notation Provider Notation: Although this document has been carefully reviewed, there may still be some phonetic and other typographical errors. These errors are purely grammatical due to imperfections in the software program and should not be construed in any way to compromise the substance of the patient's medical care during this visit. Thank you for the opportunity and privilege in assisting you with this patient's care and management.
[2024-06-24] MEDS: LACTULOSE SYRUP 20 GM/30 ML UDC 10 GM PO (09:41)
[2024-06-24] MEDS: FUROSEMIDE INJ 10 MG/ML 4ML VIAL 40 MG IVP (11:00)
--- NOTE | 2024-06-24 13:04 | ESPR_ITS ---
<Statement entered by Elizabeth Love MD - 06/24/24 16:12> Patient was seen and examined at bedside. Patient reported significant improvement of his shortness of breath and he feels much stronger than yesterday. He reported that he has been walking around multiple times. Repeat chest x-ray today showed worsening of his pneumothorax mildly patient still had the chest tube under waterseal. We spoke with the customer relations coordinator Dr. Washington he recommended chest x-ray tomorrow morning and evaluate if the patient is improving. Will clamp the chest x-ray and repeat chest x-ray at 2 PM. He also reported that as the patient is not improving patient should be discharged hemologic valve and pleural VAC and outpatient follow-up in outpatient. Because the patient still draining some fluids and has abdominal distention we will start the patient spironolactone 50 mg and Lasix 40 mg as a trial with close monitoring of serum creatinine levels. Hopefully that will improve his ascites and pleural effusion. - Patient's plan and care discussed with my attending, Dr. David Love MD Internal Medicine PGY-2 Documentation for date of: 06/24/24 Subjective Subjective Interval history: Patient was seen and examined at bedside this AM. No acute exents overnight. Patient tolerating diet, adequate urine output and mentation is at baseline. Patient endorses improvement of shortness of breath. Has minimal pain at chest tube insertion site upon movement Chest tube output 1380cc in past 24 hours. Chest x-ray this a.m. showed 60% Pneumothorax. Encourage patient to ambulate more. Repeat CXR in the am, if worsening of Pneumothorax, to clamp and repeat CXR tomorrow afternoon. Started patient on Lasix 40 Mg IV daily and spironolactone 25 Mg p.o. twice daily Exam Vital Signs Temp Pulse Resp BP Pulse Ox O2 Del Method O2 Flow Rate 98.0 F 86 20 102/67 95 Room Air 3 06/24/24 11:52 06/24/24 11:52 06/24/24 11:52 06/24/24 11:52 06/24/24 11:52 06/24/24 11:52 06/23/24 08:00 Narrative Exam Constitutional Alert, oriented x 3 and comfortable. Middle-age male, scleral icterus HEENT Vision grossly intact. Patent nares. Trachea midline Respiratory Right-sided chest tube in situ connected to underwater seal, improved air entry in all lung bardales Cardiovascular S1 and S2 audible, RRR. No murmurs carotid bruit. No gross JVD. Abdominal Firm, distended, positive fluid thrill, umbilicus everted, BS +. Genitourinary No bladder tenderness, no flank pain. Normal to palpation Musculoskeletal Extremities tone within normal limits. No LE edema. Neurological CN II - XII grossly intact. Extremity motor and sensation grossly intact. Negative for asterixis Skin Warm, dry and intact. No apparent lesions. Psychiatric Patient has good affect, is cooperative Objective Labs 06/24/24 05:01 06/24/24 05:01 Labs: Laboratory Results - last 24 hr 06/23/24 06/24/24 15:52 05:01 WBC 4.5 RBC 3.86 L Hgb 13.6 Hct 38.3 L MCV 99 MCH 35.2 H MCHC 35.5 RDW Std Deviation 53.8 H Plt Count 72 L Neut % (Auto) 60 Lymph % (Auto) 22 [place] % (Auto) 12 Eos % (Auto) 5 Baso % (Auto) 1 Neut # (Auto) 2.7 Lymph # (Auto) 1.0 [place] # (Auto) 0.5 Eos # (Auto) 0.2 Baso # (Auto) 0.1 Immature Gran # (Auto) 0.01 H Absolute Nucleated RBC 0.00 Immature Gran % 0 Nucleated RBC % 0 PT 14.8 H INR 1.4 H Sodium 136 Potassium 4.1 D Chloride 104 Carbon Dioxide 28.6 Anion Gap 3 L BUN 8 L Creatinine 0.6 Estim Creat Clear Calc 134.6 eGFR > 60 BUN/Creatinine Ratio 13 Glucose 98 Calculated Osmolality 270 L Calcium 8.2 L Corrected Calcium 8.8 Total Bilirubin 2.3 H AST 31 ALT 24 Alkaline Phosphatase 60 D Total Protein 5.6 L Albumin 3.3 L Globulin 2.3 Albumin/Globulin Ratio 1.4 Ur Random Sodium < 10.0 L Misc Test Result Platelets confirmed Quality Measures Quality Measures none Assessment & Plan Assessment Current Active Medications: Generic Name Dose Route Start Last Admin Trade Name Freq PRN Reason Stop Dose Admin Acetaminophen 650 mg 06/22/24 16:31 Acetaminophen 325 Mg Tablet PO 07/22/24 16:30 Q6H PRN Fever >100.3 or pain 1-3 Hydrocodone Bitart/Acetaminophen 1 tab 06/22/24 16:31 06/23/24 21:15 Hydrocodone/Apap 5/325 Tablet PO 06/27/24 16:30 1 tab Q4HR PRN Administration PAIN SCALE 4-10(Mod-Sev Furosemide 40 mg 06/24/24 11:00 06/24/24 11:00 Furosemide Inj 10 Mg/Ml 4ml Vial IVP 07/24/24 10:59 40 mg QDAY TOM Administration Lactulose 10 gm 06/23/24 09:00 06/24/24 09:41 Lactulose Syrup 20 Gm/30 Ml Udc PO 07/23/24 08:59 10 gm QDAY TOM Administration Protocol Midodrine 10 mg 06/22/24 16:45 06/24/24 05:22 Midodrine 5 Mg Tablet PO 07/22/24 16:44 10 mg TID TOM Administration Morphine Sulfate 2 mg 06/22/24 16:43 06/22/24 17:56 Morphine Sulf Inj 10 Mg/Ml Vial IVP 06/27/24 16:42 2 mg Q4HR PRN Administration BREAKTHROUGH PAIN Ondansetron HCl 4 mg 06/22/24 16:31 Ondansetron Inj 2 Mg/Ml Inj 2 Ml IV 07/22/24 16:30 Q6H PRN NAUSEA OR VOMITING Protocol Spironolactone 25 mg 06/24/24 21:00 Spironolactone 25 Mg Tablet PO 07/24/24 20:59 BID TOM Plan Patient is a 53-year-old male with a past medical history significant for alcoholic cirrhosis with ascites presenting today with a chief complaint of shortness of breath x 1 day. Patient will be admitted for treatment and management of right-sided pneumothorax. Iatrogenic right pneumothorax secondary to thoracentesis Right-sided pleural effusion Patient presented with shortness of breath since last night. On exam had reduced air entry on right lung. Chest x-ray revealed a large right-sided pleural effusion. CT chest/abdomen/pelvis significant for right chest tube in situ, rather mild to moderate right pleural effusion. Right-sided pneumothorax. Umbilical hernia and mild to moderate ascites. Chest tube output 1380cc in past 24 hours. Chest x-ray this a.m. showed 60% Pneumothorax. Encourage patient to ambulate more. Repeat CXR in the am, if worsening of Pneumothorax, to clamp and repeat CXR tomorrow afternoon. Plan: ? Supplemental O2 via NC ? Repeat chest x-ray at 5 AM tomorrow - If repeat chest x-ray shows worsening of pneumothorax, to plan and repeat chest x-ray in the afternoon tomorrow. - Continue drainage of chest tube connected to underwater seal without suction. ? Encourage ambulation outpatient for reexpansion of lung. ? Lidocaine patch as needed - If patient wishes to be discharged can place a Heimlich valve and pleural VAC container. Contact materials [id number] ? Pulmonology, Dr. Pike consulted. Appreciate recommendations Decompensated alcoholic cirrhosis with ascites, thrombocytopenia and coagulopathy Ascites s/p large-volume paracentesis 06/21/2024 Hypoalbuminemia Hyperbilirubinemia DDx: Infectious, autoimmune, alcohol induced, medication side effect, Toni's Patient previously had alcohol abuse disorder. Last drink was 2 weeks ago On exam as marked ascites. PLT 72, PT 16.3, INR 1.5, T. bili 2.3 Ammonia <10 Hepatitis panel negative MELD-Na ; 18 points; 3-4%. 90-day mortality Child-Reyez ; Class B. Indication for transplant evaluation. Abdominal surgery xiomara-operative mortality 30% On this admission patient received albumin 112.5 g IV in total Plan: ? Cardiac diet - 1500 cc/day fluid restriction ? Pending autoimmune screen including alpha-1 antitrypsin, ADEBAYO, ceruloplasmin, copper, IgG serum, LK M?1 antibody, mitochondrial antibody ? Midodrine 10 Mg p.o. 3 times daily - Lasix 40 Mg IV daily ? Spironolactone 25 Mg p.o. twice daily Umbilical hernia Patient denies any pain On exam umbilicus everted, but reducible. No signs of incarceration or strangulation Plan: ? For outpatient management with general surgery Health maintenance: Disposition: Pending re-expansion of lung. Repeat chest x-ray tomorrow Diet: 2G sodium restricted. 1500 cc fluid restriction Lines: pIVs GI Prophylaxis: None Thrombo Prophylaxis: SCDs Code status: FULL CODE Plan of care discussed with Attending Dr. Pederson and PGY 2 Dr. Ivan Fu MD PGY 1 Disclaimer: This note was dictated by speech recognition. Minor errors in geologic technician may be present due to voice recognition software. Attending Provider Attestation/Addendum I attest that I was physically present for the evaluation, physical examination, lab and imaging review of the patient with the residents. I discussed the case with the residents and agree with the findings and plans of care as documented above. Neymar Pederson MD
--- NOTE | 2024-06-24 13:57 | ECHO_ITS ---
Transthoracic Echo Report Ht (in): 68 Wt (lb): 165 Exam Location: Echo Lab Status: Inpatient Engineering Programmer: Jackie Fournier Indications: Procedure Performed: BP: 104 / 69 HR: 82 Technical Quality: Technically difficult study MEASUREMENTS (Male / Female) Normal Values 2D ECHO LV Diastolic Diameter PLAX 4.6 cm 4.2 - 5.9 / 3.9 - 5.3 cm LV Systolic Diameter PLAX 3.1 cm IVS Diastolic Thickness 1.0 cm 0.6 - 1.0 / 0.6 - 0.9 cm LVPW Diastolic Thickness 0.9 cm 0.6 - 1.0 / 0.6 - 0.9 cm LV Relative Wall Thickness 0.4 LVOT Diameter 2.0 cm Aortic Root Diameter 3.0 cm LA Systolic Diameter LX 2.7 cm 3.0 - 4.0 / 2.7 - 3.8 cm LA Volume Index 12.8 cm?/m? 16 - 28 cm?/m? Ascending Aorta Diameter 3.1 cm DOPPLER AV Peak Velocity 130.0 cm/s AV Peak Gradient 6.8 mmHg AV Mean Gradient 3.0 mmHg AV Velocity Time Integral 23.2 cm LVOT Peak Velocity 117.0 cm/s LVOT Peak Gradient 5.5 mmHg LVOT Velocity Time Integral 21.7 cm LVOT Cardiac Index 2935.3 cm?/min?m? AV Area Cont Eq vti 2.9 cm? AV Area Cont Eq pk 2.8 cm? MV Area PHT 4.9 cm? Mitral E Point Velocity 48.5 cm/s Mitral A Point Velocity 57.2 cm/s Mitral E to A Ratio 0.8 LV E' Lateral Velocity 12.6 cm/s Mitral E to LV E' Lateral Ratio 3.8 LV E' Septal Velocity 6.5 cm/s Mitral E to LV E' Septal Ratio 7.4 TR Peak Velocity 282.0 cm/s TR Peak Gradient 31.8 mmHg PV Peak Velocity 128.0 cm/s PV Peak Gradient 6.6 mmHg FINDINGS Left Ventricle Normal left ventricular size, wall thickness, systolic function with no obvious regional wall motion abnormalities. Grade I diastolic dysfunction. The ejection fraction is visually estimated at 65 %. Right Ventricle The right ventricle is mildly enlarge with normal systolic function. The estimated right ventricular systolic pressure, 37 mmHg. 5 RAP. Left Atrium The left atrium is normal by two-dimensional, color flow and Doppler imaging with no structural abnormalities, no thrombus formation present. Right Atrium The right atrium is normal by two-dimensional imaging, color flow and Doppler imaging with no structural abnormalities, no thrombus formation present. Atrial Septum The interatrial septum appears normal with no evidence of a shunt. Aorta The aorta is normal by two-dimensional, color flow and Doppler interrogation. Mitral Valve The mitral valve is normal by two-dimensional, color flow and Doppler interrogation. Trace to mild mitral regurgitation. Aortic Valve The aortic valve is trileaflet and normal by two-dimensional, color flow and Doppler interrogation. There is no significant aortic valve regurgitation. Tricuspid Valve The tricuspid valve is normal by two-dimensional, color flow and Doppler interrogation. There is mild tricuspid valve regurgitation. Pulmonic Valve The pulmonic valve is not well visualized. There is no significant pulmonic valve regurgitation. Vessels The pulmonary artery appears normal. The inferior vena cava pulmonary and hepatic veins appear normal. Pericardium There is a small pleural effusion. CONCLUSIONS Indication: Rule out CHF and pleural effusion There is a small pleural effusion. Normal LV size and wall thickness. Grade I diastolic dysfunction. Estimated EF 65 %. RV is mildly enlarge with normal systolic function. The estimated RVSP, 37 mmHg. 5 RAP. Trace to mild MR. Mild TR. Didi Tee (Electronically Signed) Final Date: 25 Jun 2024 06:23
[2024-06-24] MEDS: HYDROcodone/APAP 5/325 TABLET 1 TAB PO (19:36)
[2024-06-24] MEDS: SPIRONOLACTONE 25 MG TABLET PO (21:15)
--- NOTE | 2024-06-24 22:00 | PC.NURSE ---
Pleur evac cannister changed with 850cc out.
[2024-06-25] VITALS (14 sets, daily range): BP systolic 92–110; BP diastolic 66–87; PULSE 70–92; RESP 15–23; TEMP 36.2–36.9; O2SAT 93–95; BMI 25.0
[2024-06-25] MEDS: MIDODRINE 5 MG TABLET 10 MG PO ×3 (05:12→21:01)
[2024-06-25 05:44] LABS: Basophils # (Auto) 0.1 Thou/mm3 (0.0-0.2); Basophils % (Auto) 2 % (0-2.5); Eosinophils # (Auto) 0.3 Thou/mm3 (0.0-0.5); Eosinophils % (Auto) 6 % (0-10); Hematocrit 36.8 % (41.0-53.0); Hemoglobin 12.7 g/dL (13.5-16.0); Immature Granulocytes % (Auto) 0 % (0-0); Immature Granulocytes Auto 0.01 Thou/mm3 (0.00-0.00); Lymphocytes # (Auto) 1.3 Thou/mm3 (1.0-4.8); Lymphocytes % (Auto) 29 % (10-50); Mean Corpuscular HGB Conc 34.5 g/dl (31.0-37.0); Mean Corpuscular Hemoglobin 34.9 pg (25.0-35.0); Mean Corpuscular Volume 101 fL (80-100); Monocytes # (Auto) 0.7 Thou/mm3 (0.0-0.8); Monocytes % (Auto) 16 % (0-12); Neutrophils # (Auto) 2.2 Thou/mm3 (1.8-7.7); Neutrophils % (Auto) 48 % (37-80); Nucleated Red Blood Cell % 0 /100 WBC (0); Platelet Count 85 Thou/mm3 (140-440); RDW Standard Deviation 55.8 fL (35.1-43.9); Red Blood Count 3.64 Miln/mm3 (4.50-5.90); White Blood Count 4.5 Thou/mm3 (3.8-10.6)
[2024-06-25 06:00] LABS: INR 1.3 (0.9-1.3); Prothrombin Time 14.1 Seconds (9.0-12.2)
--- NOTE | 2024-06-25 06:00 | XR_ITS ---
Examination: AP chest single view TECHNIQUE: AP portable upright chest single view Exam date and time: June 25, 2024, 0454 hours Comparison June 24, 2024 INDICATIONS: History right pneumothorax postthoracentesis this week post chest tube placement FINDINGS: Right chest tube satisfactory position Large right pneumothorax 60% plus On this study the mediastinum and the heart are displaced to the left IMPRESSION: Large right pneumothorax under tension Recommend placement surgical chest tube This report called to the nurse taking care of this patient June 25, 2024, 0748 hours
[2024-06-25 06:28] LABS: Alanine Aminotransferase 28 U/L (10-49); Albumin, Serum 3.1 gm/dL (3.5-5.0); Albumin/Globulin Ratio 1.2 (1.2-2.2); Alkaline Phosphatase 65 U/L (46-116); Anion Gap 4 (7-16); Aspartate Amino Transferase 34 U/L (0-34); BUN/Creatinine Ratio 18 Ratio (12-20); Bilirubin,Total 1.6 mg/dL (0.3-1.2); Blood Urea Nitrogen 11 mg/dL (9-23); Calcium 7.8 mg/dL (8.3-10.6); Calcium (Corrected) 8.5 mg/dL (8.5-10.1); Carbon Dioxide 29.9 mMol/L (20.0-31.0); Chloride 103 mMol/L (98-107); Creatinine (Component) 0.6 mg/dL (0.6-1.3); Estimated Creatinine Clearance 134.6 mL/min (>60); Globulin 2.5 gm/dL (2.3-3.5); Glucose 100 mg/dL (74-106); Osmolality,Calculated 273 (275-295); Potassium 3.7 mMol/L (3.4-5.1); Sodium 137 mMol/L (136-145); Total Protein 5.6 gm/dL (5.7-8.2); eGFR > 60 See Note
[2024-06-25] MEDS: FUROSEMIDE INJ 10 MG/ML 4ML VIAL 40 MG IVP (08:30)
[2024-06-25] MEDS: LACTULOSE SYRUP 20 GM/30 ML UDC 10 GM PO (08:30)
[2024-06-25] MEDS: SPIRONOLACTONE 25 MG TABLET PO ×2 (08:31→21:00)
--- NOTE | 2024-06-25 09:18 | PC.SS ---
Follow up note: Clamp chest tube. Then chest xray. Pt will return home upon dc.
--- NOTE | 2024-06-25 09:29 | PD.PUPROG ---
Documentation for date of: 06/25/24 Subjective Subjective Interval history: Patient feels well. No new complaints. Chest tube clamped this AM. Ongoing diuretics and albumin to optimize ascites/ pleural fluid production. Patinet tolerating laps well no oxygen requirement and without chest pain. Anticipating ability to go home soon. Critical Care Note Critical care time (min.): 0 Exam Vital Signs Temp Pulse Resp BP Pulse Ox O2 Del Method O2 Flow Rate 98 F 79 20 102/70 93 L Room Air 3 06/25/24 07:25 06/25/24 08:31 06/25/24 07:25 06/25/24 08:31 06/25/24 07:25 06/25/24 07:25 06/23/24 08:00 Narrative Exam GEN:NAD CHEST: symmetric, chest tube in place, clear yellow fluid at clamp PULM: clear to auscultation on left, distant breath sounds on right CVS: S1/S2+ ABD: soft/ distended EXT: No cyanosis/ clubbing Physical Exam Completion Physical Exam Complete?: Yes Objective - Senior Software Developer Labs 06/26/24 04:39 06/26/24 04:39 Labs: Laboratory Results - last 24 hr 06/25/24 04:34 WBC 4.5 RBC 3.64 L Hgb 12.7 L Hct 36.8 L MCV 101 H MCH 34.9 MCHC 34.5 RDW Std Deviation 55.8 H Plt Count 85 L Neut % (Auto) 48 Lymph % (Auto) 29 [place] % (Auto) 16 H Eos % (Auto) 6 Baso % (Auto) 2 Neut # (Auto) 2.2 Lymph # (Auto) 1.3 [place] # (Auto) 0.7 Eos # (Auto) 0.3 Baso # (Auto) 0.1 Immature Gran # (Auto) 0.01 H Absolute Nucleated RBC 0.00 Immature Gran % 0 Nucleated RBC % 0 PT 14.1 H INR 1.3 Sodium 137 Potassium 3.7 Chloride 103 Carbon Dioxide 29.9 Anion Gap 4 L BUN 11 Creatinine 0.6 Estim Creat Clear Calc 134.6 eGFR > 60 BUN/Creatinine Ratio 18 Glucose 100 Calculated Osmolality 273 L Calcium 7.8 L Corrected Calcium 8.5 Total Bilirubin 1.6 H D AST 34 ALT 28 Alkaline Phosphatase 65 Total Protein 5.6 L Albumin 3.1 L Globulin 2.5 Albumin/Globulin Ratio 1.2 Assessment & Plan Additional Plan Additional Plan: Post procedure PTX Hepatic hydrothorax Monitor with chest tube clamped overnight Caution that excessive fluid loss will lead to component of malnutrition from high protein content Agree with ongoing albumin/ lasix/ aldactone for optimization of ascites production/ portal hypertension Promote good PO intake for calorie/ protein replacement Promote mobilization with ability to walk 10-20 laps per day Will consider potential for removal of chest tube, suspect that hemithorax will fill up with fluid with lung only partially expanded Provider Notation Provider Notation: Although this document has been carefully reviewed, there may still be some phonetic and other typographical errors. These errors are purely grammatical due to imperfections in the software program and should not be construed in any way to compromise the substance of the patient's medical care during this visit. Thank you for the opportunity and privilege in assisting you with this patient's care and management.
--- NOTE | 2024-06-25 16:00 | XR_ITS ---
Examination: AP chest single view TECHNIQUE: AP portable upright chest single view Exam date and time: June 25, 2024 1610 hours Comparison June 25, 2024 INDICATIONS: Pneumothorax postthoracentesis this week post chest tube placement FINDINGS: There remains large right pneumothorax 60% plus with shift of the heart and mediastinum to the left Right chest tube is in satisfactory position Mild prominence left ventricle IMPRESSION: There remains large right pneumothorax, 60% plus with shift of the heart and mediastinum to the left
[2024-06-25] MEDS: HYDROcodone/APAP 5/325 TABLET 1 TAB PO (16:18)
--- NOTE | 2024-06-25 16:46 | ESPR_ITS ---
Documentation for date of: 06/25/24 Subjective - Hospitalist Subjective Interval history: At bedside today, patient states he is feeling well and is asking when he can be discharged. Explained to him about his current condition and need for further monitoring. Patient in agreement with the plan. Discussed with pulmonology, recommended to clamp the chest tube, obtain a follow-up chest x-ray, if stable we will keep the chest tube clamped and reevaluated with follow-up chest x-ray tomorrow morning and decide on removing the chest tube. Review of Systems Review of Systems Systems Reviewed: All systems reviewed, normal except as documented Exam Vital Signs Temp Pulse Resp BP Pulse Ox O2 Del Method O2 Flow Rate 97.1 F 80 19 109/70 93 L Room Air 3 06/25/24 20:00 06/25/24 21:01 06/25/24 20:00 06/25/24 21:01 06/25/24 20:00 06/25/24 07:25 06/23/24 08:00 Narrative General: Alert and oriented, comfortable, able to answer questions and follow commands appropriately HEENT: EOMI, PERRLA, no pallor or icterus Cardio: RRR, S1 and S2 heard without murmurs Respiratory: Decreased air entry on right side, no wheezing or crackles Abdomen: Soft, mildly distended, nontender, bowel sound present, hernia noted MSK: No edema Neuro:Alert and Oriented x 4, moving all her extremities Psych: Appropriate mood and behaviour Objective - Hospitalist Labs Diagram: 06/25/24 04:34 06/25/24 04:34 Labs: Laboratory Results - last 24 hr 06/25/24 04:34 WBC 4.5 RBC 3.64 L Hgb 12.7 L Hct 36.8 L MCV 101 H MCH 34.9 MCHC 34.5 RDW Std Deviation 55.8 H Plt Count 85 L Neut % (Auto) 48 Lymph % (Auto) 29 [place] % (Auto) 16 H Eos % (Auto) 6 Baso % (Auto) 2 Neut # (Auto) 2.2 Lymph # (Auto) 1.3 [place] # (Auto) 0.7 Eos # (Auto) 0.3 Baso # (Auto) 0.1 Immature Gran # (Auto) 0.01 H Absolute Nucleated RBC 0.00 Immature Gran % 0 Nucleated RBC % 0 PT 14.1 H INR 1.3 Sodium 137 Potassium 3.7 Chloride 103 Carbon Dioxide 29.9 Anion Gap 4 L BUN 11 Creatinine 0.6 Estim Creat Clear Calc 134.6 eGFR > 60 BUN/Creatinine Ratio 18 Glucose 100 Calculated Osmolality 273 L Calcium 7.8 L Corrected Calcium 8.5 Total Bilirubin 1.6 H D AST 34 ALT 28 Alkaline Phosphatase 65 Total Protein 5.6 L Albumin 3.1 L Globulin 2.5 Albumin/Globulin Ratio 1.2 Assessment & Plan Assessment: Patient is a 53-year-old male with a past medical history significant for alcoholic cirrhosis with ascites presenting today with a chief complaint of shortness of breath x 1 day. Patient will be admitted for treatment and management of right-sided pneumothorax. #Iatrogenic right pneumothorax secondary to thoracentesis #Right-sided pleural effusion Patient presented with shortness of breath since last night. On exam had reduced air entry on right lung. Latest chest x-ray shows 60% pneumothorax, stable compared to the previous one this morning Plan: ? We will continue to monitor with the chest tube clamped and obtain repeat x- ray tomorrow - If patient has stable pneumothorax, we will plan for removal of the chest tube and subsequent discharge ? Encourage ambulation outpatient for reexpansion of lung. ? Lidocaine patch as needed ? Pulmonology, Dr. Pike consulted. Appreciate recommendations #Decompensated alcoholic cirrhosis with ascites, thrombocytopenia and coagulopathy #Ascites s/p large-volume paracentesis 06/21/2024 #Hypoalbuminemia #Hyperbilirubinemia DDx: Infectious, autoimmune, alcohol induced, medication side effect, Toni's Patient previously had alcohol abuse disorder. Last drink was 2 weeks ago On exam as marked ascites. PLT 72, PT 16.3, INR 1.5, T. bili 2.3 Ammonia <10 Hepatitis panel negative MELD-Na ; 18 points; 3-4%. 90-day mortality Child-Reyez ; Class B. Indication for transplant evaluation. Abdominal surgery xiomara-operative mortality 30% Plan: ? Cardiac diet - 1500 cc/day fluid restriction ? Pending autoimmune screen including alpha-1 antitrypsin, ADEBAYO, ceruloplasmin, copper, IgG serum, LK M?1 antibody, mitochondrial antibody ? Midodrine 10 Mg p.o. 3 times daily - Lasix 40 Mg IV daily ? Spironolactone 25 Mg p.o. twice daily #Umbilical hernia Patient denies any pain On exam umbilicus everted, but reducible. No signs of incarceration or strangulation Plan: ? For outpatient management with general surgery Disposition: Pending re-expansion of lung. Repeat chest x-ray tomorrow Diet: 2G sodium restricted. 1500 cc fluid restriction Thrombo Prophylaxis: SCDs Code status: FULL CODE Neymar Pederson MD Time Spent with Patient Time: Total time spent is greater than 50% in coordination of care (as documented) at patient's floor/unit and/or counseling patient: Time with patient: Greater than 35 minutes Reason for Continued Stay Reason for continued stay: other Quality Measures Quality Measures none
--- NOTE | 2024-06-25 16:57 | PC.NURSE ---
Per Md Pike keep chest tube clamped. Reevaluation will be done tomorrow.
[2024-06-26] VITALS (10 sets, daily range): BP systolic 100–109; BP diastolic 66–76; PULSE 74–86; RESP 19–23; TEMP 36.2–36.7; O2SAT 91–97
[2024-06-26] MEDS: HYDROcodone/APAP 5/325 TABLET 1 TAB PO ×3 (04:21→23:50)
[2024-06-26 05:23] LABS: Basophils # (Auto) 0.1 Thou/mm3 (0.0-0.2); Basophils % (Auto) 1 % (0-2.5); Eosinophils # (Auto) 0.3 Thou/mm3 (0.0-0.5); Eosinophils % (Auto) 6 % (0-10); Hematocrit 37.9 % (41.0-53.0); Hemoglobin 13.5 g/dL (13.5-16.0); Immature Granulocytes % (Auto) 0 % (0-0); Immature Granulocytes Auto 0.01 Thou/mm3 (0.00-0.00); Lymphocytes # (Auto) 1.5 Thou/mm3 (1.0-4.8); Lymphocytes % (Auto) 32 % (10-50); Mean Corpuscular HGB Conc 35.6 g/dl (31.0-37.0); Mean Corpuscular Volume 98 fL (80-100); Monocytes # (Auto) 0.7 Thou/mm3 (0.0-0.8); Monocytes % (Auto) 15 % (0-12); Neutrophils # (Auto) 2.1 Thou/mm3 (1.8-7.7); Neutrophils % (Auto) 47 % (37-80); Nucleated Red Blood Cell % 0 /100 WBC (0); Platelet Count 83 Thou/mm3 (140-440); RDW Standard Deviation 54.1 fL (35.1-43.9); Red Blood Count 3.86 Miln/mm3 (4.50-5.90); White Blood Count 4.6 Thou/mm3 (3.8-10.6)
[2024-06-26] MEDS: MIDODRINE 5 MG TABLET 10 MG PO ×3 (05:32→21:01)
[2024-06-26 06:02] LABS: Alanine Aminotransferase 34 U/L (10-49); Albumin/Globulin Ratio 1.2 (1.2-2.2); Alkaline Phosphatase 80 U/L (46-116); Anion Gap 5 (7-16); Aspartate Amino Transferase 37 U/L (0-34); BUN/Creatinine Ratio 19 Ratio (12-20); Bilirubin,Total 1.2 mg/dL (0.3-1.2); Blood Urea Nitrogen 13 mg/dL (9-23); Calcium (Corrected) 8.8 mg/dL (8.5-10.1); Carbon Dioxide 29.3 mMol/L (20.0-31.0); Chloride 103 mMol/L (98-107); Creatinine (Component) 0.7 mg/dL (0.6-1.3); Estimated Creatinine Clearance 115.4 mL/min (>60); Globulin 2.6 gm/dL (2.3-3.5); Glucose 102 mg/dL (74-106); Osmolality,Calculated 273 (275-295); Potassium 4.1 mMol/L (3.4-5.1); Sodium 137 mMol/L (136-145); Total Protein 5.6 gm/dL (5.7-8.2); eGFR > 60 See Note
[2024-06-26 06:05] LABS: INR 1.3 (0.9-1.3); Prothrombin Time 13.5 Seconds (9.0-12.2)
--- NOTE | 2024-06-26 08:22 | XR_ITS ---
Examination: AP chest single view Technique one AP portable semiupright chest single view Time: June 26, 2024 0848 hours Comparison June 25, 2024 INDICATIONS: History right pneumothorax post chest tube placement FINDINGS: Again noted large right pneumothorax, on this study 80-90% Significant shift of the trachea mediastinum and heart to the left Right chest tube is in satisfactory position IMPRESSION: Again noted large right pneumothorax, on this study 80-90%, under tension
[2024-06-26] MEDS: SPIRONOLACTONE 25 MG TABLET PO (09:06)
[2024-06-26] MEDS: FUROSEMIDE INJ 10 MG/ML 4ML VIAL 40 MG IVP (09:06)
[2024-06-26] MEDS: LACTULOSE SYRUP 20 GM/30 ML UDC 10 GM PO (09:06)
--- NOTE | 2024-06-26 09:51 | PD.PUPROG ---
Documentation for date of: 06/26/24 Subjective Subjective Interval history: Clamp trial for 24 hours, AM xray with tension physiology. Placed back on suction by medicine team. Was doing laps and no issues on RA. Mediastinal shift noted on chest film this AM. He reports some dizziness, no chest pain, or dyspnea otherwise. High output has slowed down from chest. Follow up xray planned for this afternoon. IS is at bedside feels like coughing with inspiration. Critical Care Note Critical care time (min.): 0 Exam Vital Signs Temp Pulse Resp BP Pulse Ox O2 Del Method O2 Flow Rate 97.9 F 79 22 H 109/76 94 L Room Air 3 06/26/24 08:00 06/26/24 09:06 06/26/24 08:00 06/26/24 09:06 06/26/24 08:00 06/26/24 08:00 06/23/24 08:00 Narrative Exam GEN: NAD, AAOX3 HEENT: no JVD Chest: symmetric, no accessory muscle use, chest tube in place- draining clear yellow fluid, air leak on suction intermittently, 1+ Pulm: absent anteiror breath sound on the right CVS: S1/S2+ EXT: no cyanosis/ clubbing noted Physical Exam Completion Physical Exam Complete?: Yes Objective - Ceramics Technician Labs 06/26/24 04:39 06/26/24 04:39 Labs: Laboratory Results - last 24 hr 06/26/24 04:39 WBC 4.6 RBC 3.86 L Hgb 13.5 Hct 37.9 L MCV 98 MCH 35.0 MCHC 35.6 RDW Std Deviation 54.1 H Plt Count 83 L Neut % (Auto) 47 Lymph % (Auto) 32 [place] % (Auto) 15 H Eos % (Auto) 6 Baso % (Auto) 1 Neut # (Auto) 2.1 Lymph # (Auto) 1.5 [place] # (Auto) 0.7 Eos # (Auto) 0.3 Baso # (Auto) 0.1 Immature Gran # (Auto) 0.01 H Absolute Nucleated RBC 0.00 Immature Gran % 0 Nucleated RBC % 0 PT 13.5 H INR 1.3 Sodium 137 Potassium 4.1 Chloride 103 Carbon Dioxide 29.3 Anion Gap 5 L BUN 13 Creatinine 0.7 Estim Creat Clear Calc 115.4 eGFR > 60 BUN/Creatinine Ratio 19 Glucose 102 Calculated Osmolality 273 L Calcium 8.0 L Corrected Calcium 8.8 Total Bilirubin 1.2 AST 37 H ALT 34 Alkaline Phosphatase 80 D Total Protein 5.6 L Albumin 3.0 L Globulin 2.6 Albumin/Globulin Ratio 1.2 Assessment & Plan Additional Plan Additional Plan: Post procedural PTX Hepatic hydrothorax Now with tension physiology, needs to stay on suction, keep at -20 only- no indication to go higher than this, I adjusted it at bedside. Follow up chest xray with significant improvement, but still may be partially trapped Maintain on use of IS, mobilize off suction during the day to help recruit the lung Monitor output closely and replace albumin as if large volume paracentesis Continue diuresis to help slow down production with aldactone and lasix as well Promote PO intake especially with protein/ calorie loss form fluids Not ready for repeat clamp trial at this time and expect delay in discharge Not a candidate for pleurodesis as well given incomplete apposition of visceral/ parietal pleura Provider Notation Provider Notation: Although this document has been carefully reviewed, there may still be some phonetic and other typographical errors. These errors are purely grammatical due to imperfections in the software program and should not be construed in any way to compromise the substance of the patient's medical care during this visit. Thank you for the opportunity and privilege in assisting you with this patient's care and management.
--- NOTE | 2024-06-26 10:31 | ESPR_ITS ---
Documentation for date of: 06/26/24 Subjective Subjective Interval history: Patient was seen and examined at bedside this AM. No acute exents overnight. Patient tolerating diet, adequate urine output and mentation is at baseline. Patient currently has no complaints. Repeat chest x-ray this a.m. showed 90% tension pneumothorax with mediastinal shift to the left. Chest tube was unclamped and placed on under waterseal with continuous suction. Diuretics were held. Repeat chest x-ray showed 10-20% pneumothorax on the right with resolution of the tension. 1500 cc output from chest tube. Albumin 25 g IV x 1 given Pulmonology, Dr. Pike consulted. Appreciate recommendations Will repeat chest x-ray in the a.m. To decide on removal of chest tube after Exam Vital Signs Temp Pulse Resp BP Pulse Ox O2 Del Method O2 Flow Rate 97.9 F 79 22 H 109/76 94 L Room Air 3 06/26/24 08:00 06/26/24 09:06 06/26/24 08:00 06/26/24 09:06 06/26/24 08:00 06/26/24 08:00 06/23/24 08:00 Narrative Exam Constitutional Alert, oriented x 3 and comfortable. Middle-age male, scleral icterus HEENT Vision grossly intact. Patent nares. Trachea midline Respiratory Right-sided chest tube in situ connected to underwater seal, improved air entry in all lung bardales Cardiovascular S1 and S2 audible, RRR. No murmurs carotid bruit. No gross JVD. Abdominal Firm, distended, positive fluid thrill, umbilicus everted, BS +. Genitourinary No bladder tenderness, no flank pain. Normal to palpation Musculoskeletal Extremities tone within normal limits. No LE edema. Neurological CN II - XII grossly intact. Extremity motor and sensation grossly intact. Negative for asterixis Skin Warm, dry and intact. No apparent lesions. Psychiatric Patient has good affect, is cooperative Objective Labs 06/26/24 04:39 06/26/24 04:39 Labs: Laboratory Results - last 24 hr 06/26/24 04:39 WBC 4.6 RBC 3.86 L Hgb 13.5 Hct 37.9 L MCV 98 MCH 35.0 MCHC 35.6 RDW Std Deviation 54.1 H Plt Count 83 L Neut % (Auto) 47 Lymph % (Auto) 32 [place] % (Auto) 15 H Eos % (Auto) 6 Baso % (Auto) 1 Neut # (Auto) 2.1 Lymph # (Auto) 1.5 [place] # (Auto) 0.7 Eos # (Auto) 0.3 Baso # (Auto) 0.1 Immature Gran # (Auto) 0.01 H Absolute Nucleated RBC 0.00 Immature Gran % 0 Nucleated RBC % 0 PT 13.5 H INR 1.3 Sodium 137 Potassium 4.1 Chloride 103 Carbon Dioxide 29.3 Anion Gap 5 L BUN 13 Creatinine 0.7 Estim Creat Clear Calc 115.4 eGFR > 60 BUN/Creatinine Ratio 19 Glucose 102 Calculated Osmolality 273 L Calcium 8.0 L Corrected Calcium 8.8 Total Bilirubin 1.2 AST 37 H ALT 34 Alkaline Phosphatase 80 D Total Protein 5.6 L Albumin 3.0 L Globulin 2.6 Albumin/Globulin Ratio 1.2 Quality Measures Quality Measures none Assessment & Plan Assessment Current Active Medications: Generic Name Dose Route Start Last Admin Trade Name Freq PRN Reason Stop Dose Admin Acetaminophen 650 mg 06/22/24 16:31 Acetaminophen 325 Mg Tablet PO 07/22/24 16:30 Q6H PRN Fever >100.3 or pain 1-3 Hydrocodone Bitart/Acetaminophen 1 tab 06/22/24 16:31 06/26/24 04:21 Hydrocodone/Apap 5/325 Tablet PO 06/27/24 16:30 1 tab Q4HR PRN Administration PAIN SCALE 4-10(Mod-Sev Furosemide 40 mg 06/24/24 11:00 06/26/24 09:06 Furosemide Inj 10 Mg/Ml 4ml Vial IVP 07/24/24 10:59 40 mg QDAY TOM Administration Lactulose 10 gm 06/23/24 09:00 06/26/24 09:06 Lactulose Syrup 20 Gm/30 Ml Udc PO 07/23/24 08:59 10 gm QDAY TOM Administration Protocol Midodrine 10 mg 06/22/24 16:45 06/26/24 05:32 Midodrine 5 Mg Tablet PO 07/22/24 16:44 10 mg TID TOM Administration Morphine Sulfate 2 mg 06/22/24 16:43 06/22/24 17:56 Morphine Sulf Inj 10 Mg/Ml Vial IVP 06/27/24 16:42 2 mg Q4HR PRN Administration BREAKTHROUGH PAIN Protocol Ondansetron HCl 4 mg 06/22/24 16:31 Ondansetron Inj 2 Mg/Ml Inj 2 Ml IV 07/22/24 16:30 Q6H PRN NAUSEA OR VOMITING Protocol Spironolactone 25 mg 06/24/24 21:00 06/26/24 09:06 Spironolactone 25 Mg Tablet PO 07/24/24 20:59 25 mg BID TOM Administration Plan Patient is a 53-year-old male with a past medical history significant for alcoholic cirrhosis with ascites presenting today with a chief complaint of shortness of breath x 1 day. Patient will be admitted for treatment and management of right-sided pneumothorax. Iatrogenic right pneumothorax secondary to thoracentesis Right-sided pleural effusion Patient presented with shortness of breath since last night. On exam had reduced air entry on right lung. Chest x-ray revealed a large right-sided pleural effusion. CT chest/abdomen/pelvis significant for right chest tube in situ, rather mild to moderate right pleural effusion. Right-sided pneumothorax. Umbilical hernia and mild to moderate ascites. Repeat chest x-ray this a.m. showed 90% tension pneumothorax with mediastinal shift to the left. Chest tube was unclamped and placed on under waterseal with continuous suction. Diuretics were held. Repeat chest x-ray showed 10-20% pneumothorax on the right with resolution of the tension. 1500 cc output from chest tube. Albumin 25 g IV x 1 given Pulmonology, Dr. Pike consulted. Appreciate recommendations Will repeat chest x-ray in the a.m. To decide on removal of chest tube after Plan: ? Supplemental O2 via NC ? Repeat chest x-ray at 5 AM tomorrow - Continue drainage of chest tube connected to underwater seal without suction. ? Encourage ambulation outpatient for reexpansion of lung. - Incentive spirometry every 30 minutes ? Lidocaine patch as needed ? Pulmonology, Dr. Pike consulted. Appreciate recommendations Decompensated alcoholic cirrhosis with ascites, thrombocytopenia and coagulopathy Ascites s/p large-volume paracentesis 06/21/2024 Hypoalbuminemia Hyperbilirubinemia DDx: Infectious, autoimmune, alcohol induced, medication side effect, Toni's Patient previously had alcohol abuse disorder. Last drink was 2 weeks ago On exam as marked ascites. PLT 72, PT 16.3, INR 1.5, T. bili 2.3 Ammonia <10 Hepatitis panel negative MELD-Na ; 18 points; 3-4%. 90-day mortality Child-Reyez ; Class B. Indication for transplant evaluation. Abdominal surgery xiomara-operative mortality 30% On this admission patient received albumin 112.5 g IV in total Plan: ? Cardiac diet - 1500 cc/day fluid restriction ? Pending autoimmune screen including alpha-1 antitrypsin, ADEBAYO, ceruloplasmin, copper, IgG serum, LK M?1 antibody, mitochondrial antibody ? Midodrine 10 Mg p.o. 3 times daily - Held Lasix 40 Mg IV daily ? Held spironolactone 25 Mg p.o. twice daily Umbilical hernia Patient denies any pain On exam umbilicus everted, but reducible. No signs of incarceration or strangulation Plan: ? For outpatient management with general surgery Health maintenance: Disposition: Pending resolution of pneumothorax. Repeat chest x-ray tomorrow Diet: 2G sodium restricted. 1500 cc fluid restriction Lines: pIVs GI Prophylaxis: None Thrombo Prophylaxis: SCDs Code status: FULL CODE Plan of care discussed with Attending Dr. Bg Fu MD PGY 1 Disclaimer: This note was dictated by speech recognition. Minor errors in clinical rehabilitation aide may be present due to voice recognition software. Attending Provider Attestation/Addendum I attest that I was physically present for the evaluation, physical examination, lab and imaging review of the patient with the residents. I discussed the case with the residents and agree with the findings and plans of care as documented above. Neymar Pederson MD
--- NOTE | 2024-06-26 12:40 | XR_ITS ---
Examination: AP chest single view TECHNIQUE: AP portable upright chest single view Examination type: June 26, 2024 12:45 PM Comparison June 26, 2024 0848 hours INDICATIONS: History right pneumothorax post right chest tube placement this week FINDINGS: Significant improvement Right chest tube satisfactory position with significant reexpansion right lung, estimated pneumothorax 20-30% No significant shift of the trachea mediastinum and heart to the left on the current study IMPRESSION: Significant improvement, partial re expansion right lung, 20-30% right pneumothorax
[2024-06-26] MEDS: ALBUMIN HUMAN 25% IVPB 12.5 GM/50 ML BTL IV ×2 (12:49→13:14)
--- NOTE | 2024-06-26 19:22 | PC.NURSE ---
Chest tube removed from wall suction at approximately 1800 per MD Fu. Chest tube collection device changed.
[2024-06-27] VITALS (11 sets, daily range): BP systolic 91–119; BP diastolic 61–75; PULSE 68–106; RESP 16–23; TEMP 36.2–36.9; O2SAT 93–96
[2024-06-27] MEDS: MORPHINE SULF INJ 10 MG/ML VIAL 2 MG IVP (03:08)
--- NOTE | 2024-06-27 04:37 | XR_ITS ---
Examination: AP chest single view TECHNIQUE: AP portable upright chest single view. Examination date time: Jun 27 2024 0446 hours Comparison June 26, 2024 INDICATIONS: SOB, history right pneumothorax postthoracentesis post chest tube placement FINDINGS: Chest tube satisfactory position on the right Increasing right pneumothorax, estimated at 50-60 % Mild shift of the heart and mediastinum to the left Mild prominence of ventricle IMPRESSION: Increasing right pneumothorax, estimated 50-60%
[2024-06-27] MEDS: MIDODRINE 5 MG TABLET 10 MG PO ×3 (05:04→21:00)
[2024-06-27 05:37] LABS: Basophils # (Auto) 0.1 Thou/mm3 (0.0-0.2); Basophils % (Auto) 1 % (0-2.5); Eosinophils # (Auto) 0.3 Thou/mm3 (0.0-0.5); Eosinophils % (Auto) 6 % (0-10); Hematocrit 38.8 % (41.0-53.0); Hemoglobin 13.5 g/dL (13.5-16.0); Immature Granulocytes % (Auto) 0 % (0-0); Immature Granulocytes Auto 0.02 Thou/mm3 (0.00-0.00); Lymphocytes # (Auto) 1.4 Thou/mm3 (1.0-4.8); Lymphocytes % (Auto) 26 % (10-50); Mean Corpuscular HGB Conc 34.8 g/dl (31.0-37.0); Mean Corpuscular Hemoglobin 34.8 pg (25.0-35.0); Mean Corpuscular Volume 100 fL (80-100); Monocytes # (Auto) 0.7 Thou/mm3 (0.0-0.8); Monocytes % (Auto) 13 % (0-12); Neutrophils # (Auto) 2.9 Thou/mm3 (1.8-7.7); Neutrophils % (Auto) 54 % (37-80); Nucleated Red Blood Cell % 0 /100 WBC (0); Platelet Count 106 Thou/mm3 (140-440); RDW Standard Deviation 54.7 fL (35.1-43.9); Red Blood Count 3.88 Miln/mm3 (4.50-5.90); White Blood Count 5.4 Thou/mm3 (3.8-10.6)
[2024-06-27 05:58] LABS: Alanine Aminotransferase 35 U/L (10-49); Albumin, Serum 3.2 gm/dL (3.5-5.0); Albumin/Globulin Ratio 1.2 (1.2-2.2); Alkaline Phosphatase 97 U/L (46-116); Anion Gap 6 (7-16); Aspartate Amino Transferase 33 U/L (0-34); BUN/Creatinine Ratio 25 Ratio (12-20); Bilirubin,Total 1.3 mg/dL (0.3-1.2); Blood Urea Nitrogen 15 mg/dL (9-23); Calcium 7.9 mg/dL (8.3-10.6); Calcium (Corrected) 8.5 mg/dL (8.5-10.1); Carbon Dioxide 28.7 mMol/L (20.0-31.0); Chloride 101 mMol/L (98-107); Creatinine (Component) 0.6 mg/dL (0.6-1.3); Estimated Creatinine Clearance 134.6 mL/min (>60); Globulin 2.6 gm/dL (2.3-3.5); Glucose 103 mg/dL (74-106); Osmolality,Calculated 272 (275-295); Potassium 3.8 mMol/L (3.4-5.1); Sodium 136 mMol/L (136-145); Total Protein 5.8 gm/dL (5.7-8.2); eGFR > 60 See Note
[2024-06-27] MEDS: ALBUMIN HUMAN 25% IVPB 12.5 GM/50 ML BTL IV (08:31)
[2024-06-27] MEDS: LACTULOSE SYRUP 20 GM/30 ML UDC 10 GM PO (08:31)
--- NOTE | 2024-06-27 15:20 | ESPR_ITS ---
Documentation for date of: 06/27/24 Subjective Subjective Interval history: Patient was seen and examined at bedside. Patient reported that overnight he has chest pain at the site of the chest tube, night team repeated chest x-ray which showed worsening of the pneumothorax to 60%. So report the patient an intermittent suction. At this time and will speak with the synthetic soil blocks pulper Dr. Dinh. For the past 24 hours his chest tube output was 2400 mL/day patient was given another dose of albumin 25%. Also holding his Lasix and spironolactone at this time. Will repeat chest x-ray in the afternoon to reassess pneumothorax. Exam Vital Signs Temp Pulse Resp BP Pulse Ox O2 Del Method O2 Flow Rate 97.3 F 80 23 H 107/61 95 Room Air 3 06/27/24 11:51 06/27/24 15:07 06/27/24 11:51 06/27/24 15:07 06/27/24 11:51 06/27/24 11:51 06/27/24 11:51 Narrative Exam GEN: AOx3, able to speak full sentences, positive jaundice HEENT: NC/AC, oral mucosa moist, neck supple CVS: RRR, S1-S2 present, no murmurs appreciated RESP: CTAB GI: soft, distended, positive fluid thrill, reducible umbilical hernia,, NBS MSK: able to move all 4 limbs, no lower extremity edema SKIN: warm and dry HR ADMINISTRATIVE ASSISTANT: No signs of hepatic encephalopathy, CN II-XII and Sensation grossly intact. Objective Labs 06/27/24 04:42 06/27/24 04:42 Labs: Laboratory Results - last 24 hr 06/27/24 04:42 WBC 5.4 RBC 3.88 L Hgb 13.5 Hct 38.8 L MCV 100 MCH 34.8 MCHC 34.8 RDW Std Deviation 54.7 H Plt Count 106 L D Neut % (Auto) 54 Lymph % (Auto) 26 [place] % (Auto) 13 H Eos % (Auto) 6 Baso % (Auto) 1 Neut # (Auto) 2.9 Lymph # (Auto) 1.4 [place] # (Auto) 0.7 Eos # (Auto) 0.3 Baso # (Auto) 0.1 Immature Gran # (Auto) 0.02 H Absolute Nucleated RBC 0.00 Immature Gran % 0 Nucleated RBC % 0 Sodium 136 Potassium 3.8 Chloride 101 Carbon Dioxide 28.7 Anion Gap 6 L BUN 15 Creatinine 0.6 Estim Creat Clear Calc 134.6 eGFR > 60 BUN/Creatinine Ratio 25 H Glucose 103 Calculated Osmolality 272 L Calcium 7.9 L Corrected Calcium 8.5 Total Bilirubin 1.3 H AST 33 ALT 35 Alkaline Phosphatase 97 D Total Protein 5.8 Albumin 3.2 L Globulin 2.6 Albumin/Globulin Ratio 1.2 Quality Measures Quality Measures none Assessment & Plan Assessment Current Active Medications: Generic Name Dose Route Start Last Admin Trade Name Freq PRN Reason Stop Dose Admin Acetaminophen 650 mg 06/22/24 16:31 Acetaminophen 325 Mg Tablet PO 07/22/24 16:30 Q6H PRN Fever >100.3 or pain 1-3 Hydrocodone Bitart/Acetaminophen 1 tab 06/22/24 16:31 06/26/24 23:50 Hydrocodone/Apap 5/325 Tablet PO 06/27/24 16:30 1 tab Q4HR PRN Administration PAIN SCALE 4-10(Mod-Sev Furosemide 40 mg 06/24/24 11:00 06/26/24 09:06 Furosemide Inj 10 Mg/Ml 4ml Vial IVP 07/24/24 10:59 40 mg QDAY TOM Administration Lactulose 10 gm 06/23/24 09:00 06/27/24 08:31 Lactulose Syrup 20 Gm/30 Ml Udc PO 07/23/24 08:59 10 gm QDAY TOM Administration Protocol Midodrine 10 mg 06/22/24 16:45 06/27/24 15:07 Midodrine 5 Mg Tablet PO 07/22/24 16:44 10 mg TID TOM Administration Morphine Sulfate 2 mg 06/22/24 16:43 06/27/24 03:08 Morphine Sulf Inj 10 Mg/Ml Vial IVP 06/27/24 16:42 2 mg Q4HR PRN Administration BREAKTHROUGH PAIN Protocol Ondansetron HCl 4 mg 06/22/24 16:31 Ondansetron Inj 2 Mg/Ml Inj 2 Ml IV 07/22/24 16:30 Q6H PRN NAUSEA OR VOMITING Protocol Spironolactone 25 mg 06/24/24 21:00 06/26/24 09:06 Spironolactone 25 Mg Tablet PO 07/24/24 20:59 25 mg BID TOM Administration Plan Patient is a 53-year-old male with a past medical history significant for alcoholic cirrhosis with ascites presenting today with a chief complaint of shortness of breath x 1 day. Patient will be admitted for treatment and management of right-sided pneumothorax. Iatrogenic right pneumothorax secondary to thoracentesis Right-sided pleural effusion Patient presented with shortness of breath since last night. On exam had reduced air entry on right lung. Chest x-ray revealed a large right-sided pleural effusion. CT chest/abdomen/pelvis significant for right chest tube in situ, rather mild to moderate right pleural effusion. Right-sided pneumothorax. Umbilical hernia and mild to moderate ascites. Repeat chest x-ray this a.m. showed 90% tension pneumothorax with mediastinal shift to the left. Chest tube was unclamped and placed on under waterseal with continuous suction. Diuretics were held. Repeat chest x-ray showed 10-20% pneumothorax on the right with resolution of the tension. 1500 cc output from chest tube. Albumin 25 g IV x 1 given Pulmonology, Dr. Pike consulted. Appreciate recommendations Will repeat chest x-ray in the a.m. To decide on removal of chest tube after Plan: ? Supplemental O2 via NC ? Daily chest x-ray ? Repeat x-ray today at 2 PM - Continue drainage with intermittent suction alternate with underwater seal. ? Encourage ambulation outpatient for reexpansion of lung. - Incentive spirometry every 30 minutes ? Lidocaine patch as needed ? Pulmonology, Dr. Dinh consulted. Appreciate recommendations Decompensated alcoholic cirrhosis with ascites, thrombocytopenia and coagulopathy Ascites s/p large-volume paracentesis 06/21/2024 Hypoalbuminemia Hyperbilirubinemia DDx: Infectious, autoimmune, alcohol induced, medication side effect, Toni's Patient previously had alcohol abuse disorder. Last drink was 2 weeks ago On exam as marked ascites. PLT 72, PT 16.3, INR 1.5, T. bili 2.3 Ammonia <10 Hepatitis panel negative MELD-Na ; 18 points; 3-4%. 90-day mortality Child-Reyez ; Class B. Indication for transplant evaluation. Abdominal surgery xiomara-operative mortality 30% On this admission patient received albumin 112.5 g IV in total Plan: ? Cardiac diet - 1500 cc/day fluid restriction ? Pending autoimmune screen including alpha-1 antitrypsin, ADEBAYO, ceruloplasmin, copper, IgG serum, LK M?1 antibody, mitochondrial antibody ? Midodrine 10 Mg p.o. 3 times daily - Held Lasix 40 Mg IV daily ? Held spironolactone 25 Mg p.o. twice daily Umbilical hernia Patient denies any pain On exam umbilicus everted, but reducible. No signs of incarceration or strangulation Plan: ? For outpatient management with general surgery Health maintenance: Disposition: Pending resolution of pneumothorax. Repeat chest x-ray tomorrow Diet: 2G sodium restricted. 1500 cc fluid restriction Lines: pIVs GI Prophylaxis: None Thrombo Prophylaxis: SCDs Code status: FULL CODE - Patient's plan and care discussed with my attending, Dr. David Love MD Internal Medicine PGY-2 Attending Provider Attestation/Addendum I attest that I was physically present for the evaluation, physical examination, lab and imaging review of the patient with the residents. I discussed the case with the residents and agree with the findings and plans of care as documented above. Neymar Pederson MD
[2024-06-27] MEDS: HYDROcodone/APAP 5/325 TABLET 1 TAB PO (21:00)
[2024-06-28] VITALS (11 sets, daily range): BP systolic 96–112; BP diastolic 60–71; PULSE 71–92; RESP 15–20; TEMP 36.4–37.2; O2SAT 96–97
[2024-06-28] MEDS: MIDODRINE 5 MG TABLET 10 MG PO ×3 (05:24→21:07)
[2024-06-28 06:13] LABS: Basophils # (Auto) 0.1 Thou/mm3 (0.0-0.2); Basophils % (Auto) 1 % (0-2.5); Eosinophils # (Auto) 0.3 Thou/mm3 (0.0-0.5); Eosinophils % (Auto) 6 % (0-10); Hemoglobin 13.3 g/dL (13.5-16.0); Immature Granulocytes % (Auto) 0 % (0-0); Immature Granulocytes Auto 0.02 Thou/mm3 (0.00-0.00); Lymphocytes # (Auto) 1.7 Thou/mm3 (1.0-4.8); Lymphocytes % (Auto) 29 % (10-50); Mean Corpuscular HGB Conc 34.1 g/dl (31.0-37.0); Mean Corpuscular Hemoglobin 34.9 pg (25.0-35.0); Mean Corpuscular Volume 102 fL (80-100); Monocytes # (Auto) 0.9 Thou/mm3 (0.0-0.8); Monocytes % (Auto) 14 % (0-12); Neutrophils % (Auto) 50 % (37-80); Nucleated Red Blood Cell % 0 /100 WBC (0); Platelet Count 186 Thou/mm3 (140-440); RDW Standard Deviation 54.8 fL (35.1-43.9); Red Blood Count 3.81 Miln/mm3 (4.50-5.90)
[2024-06-28 06:34] LABS: Alanine Aminotransferase 30 U/L (10-49); Albumin, Serum 3.2 gm/dL (3.5-5.0); Albumin/Globulin Ratio 1.3 (1.2-2.2); Alkaline Phosphatase 107 U/L (46-116); Anion Gap 4 (7-16); Aspartate Amino Transferase 27 U/L (0-34); BUN/Creatinine Ratio 23 Ratio (12-20); Bilirubin,Total 1.1 mg/dL (0.3-1.2); Blood Urea Nitrogen 14 mg/dL (9-23); Calcium (Corrected) 8.6 mg/dL (8.5-10.1); Chloride 98 mMol/L (98-107); Creatinine (Component) 0.6 mg/dL (0.6-1.3); Estimated Creatinine Clearance 134.6 mL/min (>60); Globulin 2.5 gm/dL (2.3-3.5); Glucose 122 mg/dL (74-106); Osmolality,Calculated 273 (275-295); Potassium 4.2 mMol/L (3.4-5.1); Sodium 136 mMol/L (136-145); Total Protein 5.7 gm/dL (5.7-8.2); eGFR > 60 See Note
--- NOTE | 2024-06-28 07:49 | XR_ITS ---
Examination: AP chest single view Technique one AP portable sitting chest single view Exam date and time: June 28, 2024 0809 hours Comparison June 27, 2024 INDICATIONS: History right pneumothorax post right chest tube placement FINDINGS: Improved expansion right lung, 20% right pneumothorax Right chest tube satisfactory position Parenchymal disease left midlung IMPRESSION: Improved expansion right lung
[2024-06-28] MEDS: LACTULOSE SYRUP 20 GM/30 ML UDC 10 GM PO (08:23)
--- NOTE | 2024-06-28 09:01 | PC.SS ---
Follow up note: Managing chest tube. Pt will return home upon dc.
--- NOTE | 2024-06-28 09:55 | ESPR_ITS ---
Documentation for date of: 06/28/24 Subjective Subjective Interval history: Patient stable on intermittent suction. Denies acute chest Critical Care Note Critical care time (min.): 0 Exam Vital Signs Temp Pulse Resp BP Pulse Ox O2 Del Method O2 Flow Rate 98.3 F 72 16 96/60 97 Room Air 3 06/28/24 08:00 06/28/24 08:00 06/28/24 08:00 06/28/24 08:00 06/28/24 08:00 06/28/24 08:00 06/28/24 08:00 Narrative Exam GENERAL: Patient appears to be critically ill HEENT: No facial asymmetry, EOM normal, no epistaxis, neck supple, PULMONARY: no rales or wheezing, breath sounds are diminished CARDIAC: Regular rate and rhythm GASTROINTESTINAL: Abdomen is soft and nontender EXTREMITIES: Radial, femoral and pedal pulses are palpable. There is no leg edema SKIN: Warm and dry without significant rashes or discoloration. NEURO: mental status is normal answering all questions appropriately, symmetrical 5/5 bilateral upper and lower extremity motor strength. Physical Exam Completion Physical Exam Complete?: Yes Objective - Data Coordinator Labs 06/28/24 05:10 06/28/24 05:10 Labs: Laboratory Results - last 24 hr 06/28/24 05:10 WBC 6.0 RBC 3.81 L Hgb 13.3 L Hct 39.0 L MCV 102 H MCH 34.9 MCHC 34.1 RDW Std Deviation 54.8 H Plt Count 186 D Neut % (Auto) 50 Lymph % (Auto) 29 [place] % (Auto) 14 H Eos % (Auto) 6 Baso % (Auto) 1 Neut # (Auto) 3.0 Lymph # (Auto) 1.7 [place] # (Auto) 0.9 H Eos # (Auto) 0.3 Baso # (Auto) 0.1 Immature Gran # (Auto) 0.02 H Absolute Nucleated RBC 0.00 Immature Gran % 0 Nucleated RBC % 0 Sodium 136 Potassium 4.2 Chloride 98 Carbon Dioxide 34.0 H Anion Gap 4 L BUN 14 Creatinine 0.6 Estim Creat Clear Calc 134.6 eGFR > 60 BUN/Creatinine Ratio 23 H Glucose 122 H Calculated Osmolality 273 L Calcium 8.0 L Corrected Calcium 8.6 Total Bilirubin 1.1 AST 27 ALT 30 Alkaline Phosphatase 107 Total Protein 5.7 Albumin 3.2 L Globulin 2.5 Albumin/Globulin Ratio 1.3 Assessment & Plan Additional Plan Additional Plan: Post procedure PTX Hepatic hydrothorax Agree with Dr. Pike's recommendations. Given rapid collapse of pneumothorax in size, he is not safe to be kept on waterseal continuously. If he is able to tolerate intermittent suction at -20 cm H2O for the remainder of the day, we should reattempt waterseal trials with repeat chest x-rays every 4 hours x 24 hours. If the pneumothorax remains large in size, he may need to be transferred to a tertiary center for interventional pulmonary consideration. Was pleural fluid never sent for studies??? I am unable to see any results. If primary team never submitted fluid samples please send for LDH, cytology, glucose cell count and analysis, protein. obtain serum ldh also Promote recruitment of lung with ambulation, try to do 10-20 laps per day Albumin ongoing and diuretics with lasix and aldactone may prove helpful but cautious use with renal function Provider Notation Provider Notation: Although this document has been carefully reviewed, there may still be some phonetic and other typographical errors. These errors are purely grammatical due to imperfections in the software program and should not be construed in any way to compromise the substance of the patient's medical care during this visit. Thank you for the opportunity and privilege in assisting you with this patient's care and management.
--- NOTE | 2024-06-28 11:48 | XR_ITS ---
Examination: AP chest single view TECHNIQUE: Sitting portable AP chest single view Date and time: June 28, 2024 12:12 PM, comparison made 2024 0809 hours INDICATIONS: History right pneumothorax post right chest tube placement FINDINGS: Right chest tube satisfactory position Right apical lateral pneumothorax 25% Mild prominence of ventricle IMPRESSION: Right chest tube satisfactory position Right apical lateral pneumothorax 25%
[2024-06-28 12:47] LABS: Glucose 120 mg/dL (74-106); LDH (Lactate Dehydrogenase) 264 U/L (120-246)
[2024-06-28 13:51] LABS: Pleural Fluid WBC 2950 /cmm
[2024-06-28 13:53] LABS: Pleural Fluid Appearance Cloudy; Pleural Fluid Color Yellow; Pleural Fluid RBC 4000 /cmm
[2024-06-28 13:54] LABS: Pleural Fluid Mononuclear 42 %; Pleural Fluid Polynuclear 58 %
[2024-06-28 14:02] LABS: Amylase,Pleural Fluid 63 IU/L; Glucose,Pleural Fluid 132 mg/dL; LDH,Pleural Fluid 230 IU/L; Protein Total,Pleural Fluid 2.4 g/dL
[2024-06-28] MEDS: ALBUMIN HUMAN 25% IVPB 12.5 GM/50 ML BTL IV ×2 (15:06→17:48)
--- NOTE | 2024-06-28 15:16 | ESPR_ITS ---
Documentation for date of: 06/28/24 Subjective Subjective Interval history: Patient was seen and examined at bedside this AM. No acute exents overnight. Patient tolerating diet, adequate urine output and mentation is at baseline. Patient endorses improvement of pain at chest tube site. Chest x-ray this a.m. showed 20% apical pneumothorax. Repeat chest x-ray at 11:40 AM showed 25% apical lateral pneumothorax. Pulmonology, Dr. Dinh consulted and closely following the case. Recommended pleural fluid analysis, intermittent suction at -20 cm H2O for the rest of the day, repeat chest x-rays every 4 hourly x 24 hours and to encourage ambulation. If the pneumothorax remains large in size, patient may need transfer to tertiary center for interventional pulmonology. Pleural fluid studies indicative of exudative effusion. Lights criteria positive. Exam Vital Signs Temp Pulse Resp BP Pulse Ox O2 Del Method O2 Flow Rate 97.9 F 83 18 100/64 96 Room Air 3 06/28/24 11:51 06/28/24 13:54 06/28/24 11:51 06/28/24 13:54 06/28/24 11:51 06/28/24 11:51 06/28/24 08:00 Narrative Exam Constitutional Alert, oriented x 3 and comfortable. Middle-age male, scleral icterus HEENT Vision grossly intact. Patent nares. Trachea midline Respiratory Right-sided chest tube in situ connected to underwater seal, reduced air entry right upper middle lobe. Cardiovascular S1 and S2 audible, RRR. No murmurs carotid bruit. No gross JVD. Abdominal Firm, distended, positive fluid thrill, umbilicus everted, reducible. BS +. Genitourinary No bladder tenderness, no flank pain. Normal to palpation Musculoskeletal Extremities tone within normal limits. No LE edema. Neurological CN II - XII grossly intact. Extremity motor and sensation grossly intact. Negative for asterixis Skin Warm, dry and intact. No apparent lesions. Psychiatric Patient has good affect, is cooperative Objective Labs 06/28/24 05:10 06/28/24 05:10 Labs: Laboratory Results - last 24 hr 06/28/24 06/28/24 06/28/24 05:10 05:10 12:54 WBC 6.0 RBC 3.81 L Hgb 13.3 L Hct 39.0 L MCV 102 H MCH 34.9 MCHC 34.1 RDW Std Deviation 54.8 H Plt Count 186 D Neut % (Auto) 50 Lymph % (Auto) 29 [place] % (Auto) 14 H Eos % (Auto) 6 Baso % (Auto) 1 Neut # (Auto) 3.0 Lymph # (Auto) 1.7 [place] # (Auto) 0.9 H Eos # (Auto) 0.3 Baso # (Auto) 0.1 Immature Gran # (Auto) 0.02 H Absolute Nucleated RBC 0.00 Immature Gran % 0 Nucleated RBC % 0 Sodium 136 Potassium 4.2 Chloride 98 Carbon Dioxide 34.0 H Anion Gap 4 L BUN 14 Creatinine 0.6 Estim Creat Clear Calc 134.6 eGFR > 60 BUN/Creatinine Ratio 23 H Glucose 122 H 120 H Calculated Osmolality 273 L Calcium 8.0 L Corrected Calcium 8.6 Total Bilirubin 1.1 AST 27 ALT 30 Alkaline Phosphatase 107 Lactate Dehydrogenase 264 H Total Protein 5.7 Albumin 3.2 L Globulin 2.5 Albumin/Globulin Ratio 1.3 Pleural Color Yellow Pleural Appearance Cloudy Pleural WBC 2950 Pleural RBC 4000 Pleural Polynuclear WBC 58 Pleural Mononuclear WBC 42 Pleural Total Protein 2.4 Pleural LDH 230 Pleural Glucose 132 Pleural Amylase 63 Quality Measures Quality Measures none Assessment & Plan Assessment Current Active Medications: Generic Name Dose Route Start Last Admin Trade Name Freq PRN Reason Stop Dose Admin Acetaminophen 650 mg 06/22/24 16:31 Acetaminophen 325 Mg Tablet PO 07/22/24 16:30 Q6H PRN Fever >100.3 or pain 1-3 Hydrocodone Bitart/Acetaminophen 1 tab 06/27/24 16:48 06/27/24 21:00 Hydrocodone/Apap 5/325 Tablet PO 07/02/24 16:47 1 tab Q6HR PRN Administration PAIN SCALE 4-6 (Moderate Furosemide 20 mg 06/29/24 09:00 Furosemide Inj 10 Mg/Ml 4ml Vial IVP 07/29/24 08:59 QDAY TOM Albumin Human 12.5 gm in 50 mls @ 100 mls/hr 06/28/24 14:25 06/28/24 15:06 Albuminar-25 Ivpb IV 07/28/24 14:24 100 mls/hr QDAY TOM Administration Lactulose 10 gm 06/23/24 09:00 06/28/24 08:23 Lactulose Syrup 20 Gm/30 Ml Udc PO 07/23/24 08:59 10 gm QDAY TOM Administration Protocol Midodrine 10 mg 06/22/24 16:45 06/28/24 13:54 Midodrine 5 Mg Tablet PO 07/22/24 16:44 10 mg TID TOM Administration Morphine Sulfate 2 mg 06/27/24 16:48 Morphine Sulf Inj 10 Mg/Ml Vial IVP 07/02/24 16:47 Q4HR PRN PAIN SCALE 7-10 (Severe Ondansetron HCl 4 mg 06/22/24 16:31 Ondansetron Inj 2 Mg/Ml Inj 2 Ml IV 07/22/24 16:30 Q6H PRN NAUSEA OR VOMITING Protocol Spironolactone 25 mg 06/28/24 21:00 Spironolactone 25 Mg Tablet PO 07/28/24 20:59 HS TOM Plan Patient is a 53-year-old male with a past medical history significant for alcoholic cirrhosis with ascites presenting today with a chief complaint of shortness of breath x 1 day. Patient will be admitted for treatment and management of right-sided pneumothorax. Iatrogenic right pneumothorax secondary to thoracentesis Right-sided pleural effusion DDx: Hydrothorax, chylothorax, cancer, autoimmune Patient presented with shortness of breath since last night. On exam had reduced air entry on right lung. Chest x-ray revealed a large right-sided pleural effusion. CT chest/abdomen/pelvis significant for right chest tube in situ, rather mild to moderate right pleural effusion. Right-sided pneumothorax. Umbilical hernia and mild to moderate ascites. Patient endorses improvement of pain at chest tube site. Chest x-ray this a.m. showed 20% apical pneumothorax. Repeat chest x-ray at 11:40 AM showed 25% apical lateral pneumothorax. Chest tube had 1065 cc of drainage in past 24 hours. Albumin 12.5 G IV x 1 given Pulmonology, Dr. Dinh consulted and closely following the case. Recommended pleural fluid analysis, intermittent suction at -20 cm H2O for the rest of the day, repeat chest x-rays every 4 hourly x 24 hours and to encourage ambulation. If the pneumothorax remains large in size, patient may need transfer to tertiary center for interventional pulmonology. Pleural fluid studies indicative of exudative effusion. Lights criteria positive. Plan: ? Supplemental O2 via NC as necessary ? Encourage ambulation for re-expansion of lung. 10?20 labs per day - Incentive spirometry every 30 minutes - Continue drainage with intermittent suction at -20 cm H2O with underwater seal. ? Repeat chest x-ray every 4 hourly x 24 hours ? Pleural fluid analysis ordered including LDH, protein, lipase, glucose and cytology ? Lidocaine patch as needed - Will monitor closely over next 24 hours, possible transfer to tertiary center for interventional pulmonology if large pneumothorax persists ? Pulmonology, Dr. Dinh consulted. Appreciate recommendations Decompensated alcoholic cirrhosis with ascites Ascites s/p large-volume paracentesis 06/21/2024 Hypoalbuminemia Hyperbilirubinemia - resolved DDx: Infectious, autoimmune, alcohol induced, medication side effect, Toni's Patient previously had alcohol abuse disorder. Last drink was 2 weeks ago On exam as marked ascites. PLT 186, PT 16.3, INR 1.5, T. bili 2.3 ---> 1.1 Ammonia <10 Hepatitis panel negative MELD-Na ; 18 points; 3-4%. 90-day mortality Child-Reyez ; Class B. Indication for transplant evaluation. Abdominal surgery xiomara-operative mortality 30% On this admission patient received albumin 150g IV in total Plan: ? Cardiac diet - 1500 cc/day fluid restriction ? Pending autoimmune screen including alpha-1 antitrypsin, ADEBAYO, ceruloplasmin, copper, IgG serum, LK M?1 antibody, mitochondrial antibody ? Midodrine 10 Mg p.o. 3 times daily - Albumin 25 g IV x 1 given. Scheduled albumin 25 g IV daily from tomorrow ? To resume Lasix 20 Mg IV daily from tomorrow ? To resume spironolactone 25 Mg p.o. at bedtime from tomorrow Umbilical hernia Patient denies any pain On exam umbilicus everted, but reducible. No signs of incarceration or strangulation Plan: ? For outpatient management with general surgery Health maintenance: Disposition: Pending resolution of pneumothorax. Repeat chest x-ray q4hrly Diet: 2G sodium restricted. 1500 cc fluid restriction Lines: pIVs GI Prophylaxis: None Thrombo Prophylaxis: SCDs Code status: FULL CODE Plan of care discussed with Attending Dr. Bg Fu MD PGY 1 Disclaimer: This note was dictated by speech recognition. Minor errors in etl database developer may be present due to voice recognition software. Attending Provider Attestation/Addendum I attest that I was physically present for the evaluation, physical examination, lab and imaging review of the patient with the residents. I discussed the case with the residents and agree with the findings and plans of care as documented above. At bedside today, patient is states she is feeling well and does not have new complaints. Has been saturating well on room air. Chest x-ray this morning showed improved expansion of lung with 20% pneumothorax on right side. Pulmonology following, recommended continuation of intermittent suction at -20 cm of H2O for the remainder of the day and reattempt waterseal trial with x-ray every 4 hours for 24 hours. Pleural fluid studies were sent. Vital signs have been stable. Lab results are stable as well. Patient continues to have significant drainage from his chest tube. Added albumin 25 g daily, patient continues to be on midodrine, restarted on spironolactone 25 at bedtime and Lasix 20 mg IV daily. Will closely monitor blood pressure to see if patient tolerates the diuresis. If patient fails to improve on a attempted waterseal, may need transfer to higher center for intervention pulmonology. Neymar Pederson MD
[2024-06-28] MEDS: HYDROcodone/APAP 5/325 TABLET 1 TAB PO (21:11)
--- NOTE | 2024-06-28 22:49 | XR_ITS ---
Upright chest single view Date and time: June 28, 2024 2242 hours Comparison May 29, 2024 12:12 PM INDICATIONS: History right pneumothorax post right chest tube placement FINDINGS: Further expansion of the right lung, estimated pneumothorax 20% Right chest tube satisfactory position Normal heart size IMPRESSION: Further reexpansion right lung as above
[2024-06-29] VITALS (12 sets, daily range): BP systolic 96–103; BP diastolic 57–71; PULSE 69–87; RESP 17–26; TEMP 36.6–37.2; O2SAT 94–99
--- NOTE | 2024-06-29 02:49 | XR_ITS ---
Examination: AP chest single view TECHNIQUE: AP portable upright chest single view Date and time: June 29, 2024 0249 hours Comparison June 28, 2024 INDICATIONS: History right chest tube post right pneumothorax FINDINGS: Right chest tube satisfactory position Right apical lateral pneumothorax estimated at 20% Mild prominence left ventricle IMPRESSION: Right pneumothorax estimated at 20%
[2024-06-29] MEDS: MIDODRINE 5 MG TABLET 10 MG PO ×3 (05:28→20:57)
[2024-06-29 06:00] LABS: Basophils # (Auto) 0.1 Thou/mm3 (0.0-0.2); Basophils % (Auto) 1 % (0-2.5); Eosinophils # (Auto) 0.4 Thou/mm3 (0.0-0.5); Eosinophils % (Auto) 6 % (0-10); Hematocrit 37.8 % (41.0-53.0); Hemoglobin 13.4 g/dL (13.5-16.0); Immature Granulocytes % (Auto) 0 % (0-0); Immature Granulocytes Auto 0.01 Thou/mm3 (0.00-0.00); Lymphocytes # (Auto) 1.6 Thou/mm3 (1.0-4.8); Lymphocytes % (Auto) 26 % (10-50); Mean Corpuscular HGB Conc 35.4 g/dl (31.0-37.0); Mean Corpuscular Hemoglobin 34.6 pg (25.0-35.0); Mean Corpuscular Volume 98 fL (80-100); Monocytes # (Auto) 0.8 Thou/mm3 (0.0-0.8); Monocytes % (Auto) 13 % (0-12); Neutrophils # (Auto) 3.4 Thou/mm3 (1.8-7.7); Neutrophils % (Auto) 54 % (37-80); Nucleated Red Blood Cell % 0 /100 WBC (0); RDW Standard Deviation 52.1 fL (35.1-43.9); Red Blood Count 3.87 Miln/mm3 (4.50-5.90); White Blood Count 6.3 Thou/mm3 (3.8-10.6)
[2024-06-29 06:24] LABS: Alanine Aminotransferase 25 U/L (10-49); Albumin, Serum 3.3 gm/dL (3.5-5.0); Albumin/Globulin Ratio 1.4 (1.2-2.2); Alkaline Phosphatase 114 U/L (46-116); Anion Gap 7 (7-16); Aspartate Amino Transferase 24 U/L (0-34); BUN/Creatinine Ratio 21 Ratio (12-20); Bilirubin,Total 1.1 mg/dL (0.3-1.2); Blood Urea Nitrogen 15 mg/dL (9-23); Calcium 8.2 mg/dL (8.3-10.6); Calcium (Corrected) 8.8 mg/dL (8.5-10.1); Carbon Dioxide 30.9 mMol/L (20.0-31.0); Chloride 98 mMol/L (98-107); Creatinine (Component) 0.7 mg/dL (0.6-1.3); Estimated Creatinine Clearance 115.4 mL/min (>60); Globulin 2.4 gm/dL (2.3-3.5); Glucose 109 mg/dL (74-106); Osmolality,Calculated 273 (275-295); Sodium 136 mMol/L (136-145); Total Protein 5.7 gm/dL (5.7-8.2); eGFR > 60 See Note
--- NOTE | 2024-06-29 06:49 | XR_ITS ---
Examination: AP chest single view TECHNIQUE: AP portable upright chest single view Date and time: June 29, 2024 0739 hours Comparison June 29, 2024 0249 hours INDICATIONS: History right pneumothorax post chest tube placement FINDINGS: Right chest tube satisfactory position Right pneumothorax approximately 20% Mild prominence left ventricle Mild parenchymal disease in the left mid and lower lung zone IMPRESSION: Right chest tube satisfactorily positioned Right pneumothorax approximately 20%
[2024-06-29] MEDS: SODIUM CHLORIDE 0.9% 500 ML 500 ML 80 ML IV (08:33)
[2024-06-29] MEDS: ALBUMIN HUMAN 25% IVPB 25 GM/100 ML BTL IV (08:34)
[2024-06-29] MEDS: LACTULOSE SYRUP 20 GM/30 ML UDC 10 GM PO (08:34)
[2024-06-29 09:13] LABS: Platelet Count 83 Thou/mm3 (140-440)
--- NOTE | 2024-06-29 10:23 | ESPR_ITS ---
Documentation for date of: 06/29/24 Subjective Subjective Interval history: Patient was seen and examined at bedside this AM. No acute exents overnight. Patient tolerating diet, adequate urine output and mentation is at baseline. Patient endorses improvement of pain at chest tube site. Chest x-ray this a.m. showed stable 20% apical pneumothorax. Will keep patient on low intermittent suction until tomorrow a.m. Repeat chest x-ray in the morning Exam Vital Signs Temp Pulse Resp BP Pulse Ox O2 Del Method O2 Flow Rate 97.9 F 73 17 103/68 99 Room Air 3 06/29/24 08:00 06/29/24 08:00 06/29/24 08:00 06/29/24 08:00 06/29/24 08:00 06/29/24 08:00 06/28/24 08:00 Narrative Exam Constitutional Alert, oriented x 3 and comfortable. Middle-age male, scleral icterus HEENT Vision grossly intact. Patent nares. Trachea midline Respiratory Right-sided chest tube in situ connected to underwater seal, reduced air entry right upper middle lobe. Cardiovascular S1 and S2 audible, RRR. No murmurs carotid bruit. No gross JVD. Abdominal Firm, distended, positive fluid thrill, umbilicus everted, reducible. BS +. Genitourinary No bladder tenderness, no flank pain. Normal to palpation Musculoskeletal Extremities tone within normal limits. No LE edema. Neurological CN II - XII grossly intact. Extremity motor and sensation grossly intact. Negative for asterixis Skin Warm, dry and intact. No apparent lesions. Psychiatric Patient has good affect, is cooperative Objective Labs 06/30/24 05:41 06/30/24 05:41 Labs: Laboratory Results - last 24 hr 06/28/24 06/28/24 06/29/24 05:10 12:54 04:53 WBC 6.3 RBC 3.87 L Hgb 13.4 L Hct 37.8 L MCV 98 MCH 34.6 MCHC 35.4 RDW Std Deviation 52.1 H Plt Count 83 L D Neut % (Auto) 54 Lymph % (Auto) 26 [place] % (Auto) 13 H Eos % (Auto) 6 Baso % (Auto) 1 Neut # (Auto) 3.4 Lymph # (Auto) 1.6 [place] # (Auto) 0.8 Eos # (Auto) 0.4 Baso # (Auto) 0.1 Immature Gran # (Auto) 0.01 H Absolute Nucleated RBC 0.00 Immature Gran % 0 Nucleated RBC % 0 Sodium 136 Potassium 4.0 Chloride 98 Carbon Dioxide 30.9 Anion Gap 7 BUN 15 Creatinine 0.7 Estim Creat Clear Calc 115.4 eGFR > 60 BUN/Creatinine Ratio 21 H Glucose 120 H 109 H Calculated Osmolality 273 L Calcium 8.2 L Corrected Calcium 8.8 Total Bilirubin 1.1 AST 24 ALT 25 Alkaline Phosphatase 114 Lactate Dehydrogenase 264 H Total Protein 5.7 Albumin 3.3 L Globulin 2.4 Albumin/Globulin Ratio 1.4 Pleural Color Yellow Pleural Appearance Cloudy Pleural WBC 2950 Pleural RBC 4000 Pleural Polynuclear WBC 58 Pleural Mononuclear WBC 42 Pleural Total Protein 2.4 Pleural LDH 230 Pleural Glucose 132 Pleural Amylase 63 Quality Measures Quality Measures none Assessment & Plan Assessment Current Active Medications: Generic Name Dose Route Start Last Admin Trade Name Freq PRN Reason Stop Dose Admin Acetaminophen 650 mg 06/22/24 16:31 Acetaminophen 325 Mg Tablet PO 07/22/24 16:30 Q6H PRN Fever >100.3 or pain 1-3 Hydrocodone Bitart/Acetaminophen 1 tab 06/27/24 16:48 06/28/24 21:11 Hydrocodone/Apap 5/325 Tablet PO 07/02/24 16:47 1 tab Q6HR PRN Administration PAIN SCALE 4-6 (Moderate Furosemide 20 mg 06/29/24 09:00 Furosemide Inj 10 Mg/Ml 4ml Vial IVP 07/29/24 08:59 QDAY TOM Albumin Human 25 gm in 100 mls @ 100 mls/hr 06/29/24 09:00 06/29/24 08:34 Albuminar-25 Ivpb IV 07/02/24 08:59 100 mls/hr QDAY TOM Administration Sodium Chloride 500 mls @ 80 mls/hr 06/29/24 07:44 06/29/24 08:33 Ns IV 06/29/24 13:58 80 mls/hr .Q6H15M ONE Administration Lactulose 10 gm 06/23/24 09:00 06/29/24 08:34 Lactulose Syrup 20 Gm/30 Ml Udc PO 07/23/24 08:59 10 gm QDAY TOM Administration Protocol Midodrine 10 mg 06/22/24 16:45 06/29/24 05:28 Midodrine 5 Mg Tablet PO 07/22/24 16:44 10 mg TID TOM Administration Morphine Sulfate 2 mg 06/27/24 16:48 Morphine Sulf Inj 10 Mg/Ml Vial IVP 07/02/24 16:47 Q4HR PRN PAIN SCALE 7-10 (Severe Ondansetron HCl 4 mg 06/22/24 16:31 Ondansetron Inj 2 Mg/Ml Inj 2 Ml IV 07/22/24 16:30 Q6H PRN NAUSEA OR VOMITING Protocol Spironolactone 25 mg 06/28/24 21:00 Spironolactone 25 Mg Tablet PO 07/28/24 20:59 HS TOM Plan Patient is a 53-year-old male with a past medical history significant for alcoholic cirrhosis with ascites presenting today with a chief complaint of shortness of breath x 1 day. Patient will be admitted for treatment and management of right-sided pneumothorax. Iatrogenic right pneumothorax secondary to thoracentesis Right-sided pleural effusion DDx: Hydrothorax, chylothorax, cancer, autoimmune Patient presented with shortness of breath since last night. On exam had reduced air entry on right lung. Chest x-ray revealed a large right-sided pleural effusion. CT chest/abdomen/pelvis significant for right chest tube in situ, rather mild to moderate right pleural effusion. Right-sided pneumothorax. Umbilical hernia and mild to moderate ascites. Patient endorses improvement of pain at chest tube site. Output 1500 cc in past 24 hours Chest x-ray this a.m. showed stable 20% apical pneumothorax. Will keep patient on low intermittent suction until tomorrow a.m. Repeat chest x-ray in the morning Pleural fluid studies indicative of exudative effusion. Lights criteria positive. Plan: ? Supplemental O2 via NC as necessary ? Encourage ambulation for re-expansion of lung. 10?20 labs per day - Incentive spirometry every 30 minutes - Continue drainage with intermittent suction at -20 cm H2O with underwater seal. ? Repeat chest x-ray 5am tomorrow - Pending pleural fluid culture and cytology ? Lidocaine patch as needed ? If pneumothorax stable on chest x-ray in the a.m., will clamp and repeat chest x-ray 4 hours after. - Will monitor closely over next 24 hours, possible transfer to tertiary center for interventional pulmonology if large pneumothorax persists ? Pulmonology, Dr. Dinh consulted. Appreciate recommendations Decompensated alcoholic cirrhosis with ascites Ascites s/p large-volume paracentesis 06/21/2024 Hypoalbuminemia Hyperbilirubinemia - resolved DDx: Infectious, autoimmune, alcohol induced, medication side effect, Toni's Patient previously had alcohol abuse disorder. Last drink was 2 weeks ago On exam as marked ascites. PLT 186, PT 16.3, INR 1.5, T. bili 2.3 ---> 1.1 Ammonia <10 Hepatitis panel negative MELD-Na ; 18 points; 3-4%. 90-day mortality Child-Reyez ; Class B. Indication for transplant evaluation. Abdominal surgery xiomara-operative mortality 30% On this admission patient received albumin 150g IV in total Plan: ? Cardiac diet - 1500 cc/day fluid restriction ? Pending autoimmune screen including alpha-1 antitrypsin, ADEBAYO, ceruloplasmin, copper, IgG serum, LK M?1 antibody, mitochondrial antibody ? Midodrine 10 Mg p.o. 3 times daily - Albumin 25 g IV daily ? To resume Lasix 20 Mg IV daily from tomorrow ? To resume spironolactone 25 Mg p.o. at bedtime from tomorrow Umbilical hernia Patient denies any pain On exam umbilicus everted, but reducible. No signs of incarceration or strangulation Plan: ? For outpatient management with general surgery Health maintenance: Disposition: Pending resolution of pneumothorax. Repeat chest x-ray at 5 AM Diet: 2G sodium restricted. 1500 cc fluid restriction Lines: pIVs GI Prophylaxis: None Thrombo Prophylaxis: SCDs Code status: FULL CODE Plan of care discussed with Attending Dr. Marilu Fu MD PGY 1 Disclaimer: This note was dictated by speech recognition. Minor errors in oil and gas drafter may be present due to voice recognition software. Attending Provider Attestation/Addendum I have examined the patient, reviewed labs and imaging findings, discussed the case with the resident(s), and reviewed entered orders. I agree with the plan of care as outlined in this note, with these additional summaries/recommendations: Patient seen at bedside. No acute overnight events. Patient seen resting comfortably in hospital bed. He reports his pain is controlled. Chest x-ray today shows right chest tube in satisfactory position and right pneumothorax approximately 20%. Overall pneumothorax has significantly improved although not resolved. Patient has been compliant with lung recruitment techniques including ambulation around the unit. We will discuss in house and pulmonology and if continues to not improve likely will require cardiothoracic surgeon for VATS/surgical pleurodesis. Interestingly patient's pleural fluid analysis returned showing exudative effusion. 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 Continue to avoid hepatotoxic agents for underlying cirrhosis secondary to alcohol use. Continue fluid restriction, fluid restriction, midodrine, Lasix, and spironolactone. Dr. Marilu MD
[2024-06-30] VITALS (12 sets, daily range): BP systolic 93–108; BP diastolic 60–73; PULSE 66–90; RESP 14–21; TEMP 36.1–36.7; O2SAT 95–100
[2024-06-30 03:02] LABS: Sm Antibody <1.0 NEG AI (<1.0 NEGATIVE)
[2024-06-30] MEDS: MIDODRINE 5 MG TABLET 10 MG PO ×3 (05:46→21:12)
[2024-06-30] MEDS: HYDROcodone/APAP 5/325 TABLET 1 TAB PO ×2 (05:47→21:16)
[2024-06-30 05:56] LABS: Basophils # (Auto) 0.1 Thou/mm3 (0.0-0.2); Basophils % (Auto) 1 % (0-2.5); Eosinophils # (Auto) 0.4 Thou/mm3 (0.0-0.5); Eosinophils % (Auto) 6 % (0-10); Lymphocytes # (Auto) 1.4 Thou/mm3 (1.0-4.8); Monocytes # (Auto) 0.6 Thou/mm3 (0.0-0.8); Monocytes % (Auto) 9 % (0-12); Nucleated Red Blood Cell % 0 /100 WBC (0)
[2024-06-30 05:58] LABS: Hematocrit 40.6 % (41.0-53.0); Hemoglobin 14.4 g/dL (13.5-16.0); Immature Granulocytes % (Auto) 0 % (0-0); Immature Granulocytes Auto 0.02 Thou/mm3 (0.00-0.00); Lymphocytes % (Auto) 21 % (10-50); Mean Corpuscular HGB Conc 35.5 g/dl (31.0-37.0); Mean Corpuscular Hemoglobin 35.2 pg (25.0-35.0); Mean Corpuscular Volume 99 fL (80-100); Neutrophils # (Auto) 4.1 Thou/mm3 (1.8-7.7); Neutrophils % (Auto) 62 % (37-80); Platelet Count 129 Thou/mm3 (140-440); RDW Standard Deviation 52.4 fL (35.1-43.9); Red Blood Count 4.09 Miln/mm3 (4.50-5.90); White Blood Count 6.6 Thou/mm3 (3.8-10.6)
--- NOTE | 2024-06-30 06:00 | XR_ITS ---
Examination: AP chest single view TECHNIQUE: AP portable upright chest single view Date and time: June 30, 2024, 0542 hours Comparison June 29, 2024 INDICATIONS: History right pneumothorax post right chest tube placement FINDINGS: Right chest tube satisfactory position. Further expansion right lung, minimal right apical pneumothorax less than 10% Normal heart size IMPRESSION: Further expansion right lung, minimal right apical pneumothorax, less than 10%
[2024-06-30 06:33] LABS: Alanine Aminotransferase 28 U/L (10-49); Albumin, Serum 3.6 gm/dL (3.5-5.0); Albumin/Globulin Ratio 1.4 (1.2-2.2); Alkaline Phosphatase 103 U/L (46-116); Anion Gap 7 (7-16); Aspartate Amino Transferase 29 U/L (0-34); BUN/Creatinine Ratio 25 Ratio (12-20); Bilirubin,Total 1.3 mg/dL (0.3-1.2); Blood Urea Nitrogen 15 mg/dL (9-23); Calcium 8.2 mg/dL (8.3-10.6); Calcium (Corrected) 8.5 mg/dL (8.5-10.1); Carbon Dioxide 29.5 mMol/L (20.0-31.0); Chloride 100 mMol/L (98-107); Creatinine (Component) 0.6 mg/dL (0.6-1.3); Estimated Creatinine Clearance 134.6 mL/min (>60); Globulin 2.6 gm/dL (2.3-3.5); Glucose 109 mg/dL (74-106); Osmolality,Calculated 273 (275-295); Potassium 4.4 mMol/L (3.4-5.1); Sodium 136 mMol/L (136-145); Total Protein 6.2 gm/dL (5.7-8.2); eGFR > 60 See Note
[2024-06-30 06:34] LABS: ANA Screen, IFA NEGATIVE (NEGATIVE); Ceruloplasmin* 18 mg/dL (14-30); IgG, Serum* 1324 mg/dL (600-1640); LKM-1 Antibody (IgG)* <20.0 U; Sm/RNP Antibody <1.0 NEG AI (<1.0 NEGATIVE)
[2024-06-30] MEDS: ALBUMIN HUMAN 25% IVPB 25 GM/100 ML BTL IV (08:52)
[2024-06-30] MEDS: LACTULOSE SYRUP 20 GM/30 ML UDC 10 GM PO (08:52)
--- NOTE | 2024-06-30 09:13 | ESPR_ITS ---
<Statement entered by Elizabeth Love MD - 06/30/24 15:24> Patient was seen and examined at bedside. Reported mild chest pain at the site of the tube insertion however he reported normal breathing with no cough or shortness of breath denied any fever or chills. Denied any abdominal pain any vomiting. On review of his vital signs all of them are within normal limits, chest x-ray showed less than 10% pneumothorax. The intermittent suction and will keep the patient under waterseal. Will repeat chest x-ray tomorrow if patient still has pneumothorax or worsening pneumothorax we will put the patient again under intermittent suction and will reach out to the handwriting expert Dr. Dinh for further recommendation or possible transfer for cardiothoracic surgical consultation. Pleural fluid cytology showed GPC however we will pending final results. Because the patient does not have any signs or symptoms of infection we will believe that most likely contamination. - Patient's plan and care discussed with my attending, Dr. Marilu Love MD Internal Medicine PGY-2 Documentation for date of: 06/30/24 Subjective Subjective Interval history: Patient was seen and examined at bedside this AM. No acute exents overnight. Patient tolerating diet, adequate urine output and mentation is at baseline. Patient has no complaints. Says he feels well Chest x-ray this a.m. showed 10% pneumothorax. Pleural fluid culture grew 2+ GPC preliminary Will discontinue intermittent suction and keep chest tube connected to underwater seal. Repeat chest x-ray at 12 PM and tomorrow am as per pulmonology. Pulmonology, Dr. Dinh consulted and closely following the case. Exam Vital Signs Temp Pulse Resp BP Pulse Ox O2 Del Method O2 Flow Rate 97.0 F 69 18 99/67 98 Room Air 3 06/30/24 08:00 06/30/24 08:00 06/30/24 08:00 06/30/24 08:00 06/30/24 08:00 06/30/24 08:00 06/29/24 23:57 Narrative Exam Constitutional Alert, oriented x 3 and comfortable. Middle-age male, scleral icterus HEENT Vision grossly intact. Patent nares. Trachea midline Respiratory Right-sided chest tube in situ connected to underwater seal, reduced air entry right middle lobe. Cardiovascular S1 and S2 audible, RRR. No murmurs carotid bruit. No gross JVD. Abdominal Soft, non-tender, umbilicus everted, reducible. BS +. Genitourinary No bladder tenderness, no flank pain. Normal to palpation Musculoskeletal Extremities tone within normal limits. No LE edema. Neurological CN II - XII grossly intact. Extremity motor and sensation grossly intact. Negative for asterixis Skin Warm, dry and intact. No apparent lesions. Psychiatric Patient has good affect, is cooperative Objective Labs 07/01/24 04:59 07/01/24 04:59 Labs: Laboratory Results - last 24 hr 06/23/24 06/29/24 06/30/24 04:55 04:53 05:41 WBC 6.3 6.6 RBC 3.87 L 4.09 L Hgb 13.4 L 14.4 Hct 37.8 L 40.6 L MCV 98 99 MCH 34.6 35.2 H MCHC 35.4 35.5 RDW Std Deviation 52.1 H 52.4 H Plt Count 83 L D 129 L D Neut % (Auto) 54 62 Lymph % (Auto) 26 21 [place] % (Auto) 13 H 9 Eos % (Auto) 6 6 Baso % (Auto) 1 1 Neut # (Auto) 3.4 4.1 Lymph # (Auto) 1.6 1.4 [place] # (Auto) 0.8 0.6 Eos # (Auto) 0.4 0.4 Baso # (Auto) 0.1 0.1 Immature Gran # (Auto) 0.01 H 0.02 H Absolute Nucleated RBC 0.00 0.00 Immature Gran % 0 0 Nucleated RBC % 0 0 Sodium 136 Potassium 4.4 Chloride 100 Carbon Dioxide 29.5 Anion Gap 7 BUN 15 Creatinine 0.6 Estim Creat Clear Calc 134.6 eGFR > 60 BUN/Creatinine Ratio 25 H Glucose 109 H Calculated Osmolality 273 L Calcium 8.2 L Corrected Calcium 8.5 Total Bilirubin 1.3 H AST 29 ALT 28 Alkaline Phosphatase 103 Total Protein 6.2 Albumin 3.6 Globulin 2.6 Albumin/Globulin Ratio 1.4 Ceruloplasmin 18 Serum IgG 1324 DAEBAYO Screen NEGATIVE ADEBAYO Titer TNP ADEBAYO Titer 2 TNP ADEBAYO Titer 3 TNP ADEBAYO Pattern TNP ADEBAYO Pattern 2 TNP ADEBAYO Pattern 3 TNP Sm ([place]) Antibody <1.0 NEG SM/SERVICE CONSULTANT IgG Antibody <1.0 NEG Livr/Kid Microsome 1 Ab <20.0 Quality Measures Quality Measures none Assessment & Plan Assessment Current Active Medications: Generic Name Dose Route Start Last Admin Trade Name Freq PRN Reason Stop Dose Admin Acetaminophen 650 mg 06/22/24 16:31 Acetaminophen 325 Mg Tablet PO 07/22/24 16:30 Q6H PRN Fever >100.3 or pain 1-3 Hydrocodone Bitart/Acetaminophen 1 tab 06/27/24 16:48 06/30/24 05:47 Hydrocodone/Apap 5/325 Tablet PO 07/02/24 16:47 1 tab Q6HR PRN Administration PAIN SCALE 4-6 (Moderate Furosemide 20 mg 06/29/24 09:00 Furosemide Inj 10 Mg/Ml 4ml Vial IVP 07/29/24 08:59 QDAY TOM Albumin Human 25 gm in 100 mls @ 100 mls/hr 06/29/24 09:00 06/30/24 08:52 Albuminar-25 Ivpb IV 07/02/24 08:59 100 mls/hr QDAY TOM Administration Lactulose 10 gm 06/23/24 09:00 06/30/24 08:52 Lactulose Syrup 20 Gm/30 Ml Udc PO 07/23/24 08:59 10 gm QDAY TOM Administration Protocol Midodrine 10 mg 06/22/24 16:45 06/30/24 05:46 Midodrine 5 Mg Tablet PO 07/22/24 16:44 10 mg TID TOM Administration Morphine Sulfate 2 mg 06/27/24 16:48 Morphine Sulf Inj 10 Mg/Ml Vial IVP 07/02/24 16:47 Q4HR PRN PAIN SCALE 7-10 (Severe Ondansetron HCl 4 mg 06/22/24 16:31 Ondansetron Inj 2 Mg/Ml Inj 2 Ml IV 07/22/24 16:30 Q6H PRN NAUSEA OR VOMITING Protocol Spironolactone 25 mg 06/28/24 21:00 Spironolactone 25 Mg Tablet PO 07/28/24 20:59 HS TOM Plan Patient is a 53-year-old male with a past medical history significant for alcoholic cirrhosis with ascites presenting today with a chief complaint of shortness of breath x 1 day. Patient will be admitted for treatment and management of right-sided pneumothorax. Iatrogenic right pneumothorax secondary to thoracentesis Right-sided pleural effusion DDx: Hydrothorax, chylothorax, cancer, autoimmune Patient presented with shortness of breath since last night. On exam had reduced air entry on right lung. Chest x-ray revealed a large right-sided pleural effusion. CT chest/abdomen/pelvis significant for right chest tube in situ, rather mild to moderate right pleural effusion. Right-sided pneumothorax. Umbilical hernia and mild to moderate ascites. Patient has no complaints. Says he feels well Chest x-ray this a.m. showed less than 10% pneumothorax. Repeat X-ray showed approximately 10% pneumothorax Will discontinue intermittent suction and keep chest tube connected to underwater seal. Repeat chest x-ray at 12 PM as per pulmonology. Pulmonology, Dr. Dinh consulted and closely following the case. Pleural fluid studies indicative of exudative effusion. Lights criteria positive. Pleural fluid culture grew 2+ GPC preliminary Pleural fluid cytology showed no malignant cells. Numerous neutrophils Plan: ? Supplemental O2 via NC as necessary ? Encourage ambulation for re-expansion of lung. 10?20 labs per day - Incentive spirometry every 30 minutes - Discontinued intermittent suction. Placed on under waterseal ? Repeat chest x-ray 5 am - Pending pleural fluid culture ? Lidocaine patch as needed - Possible transfer to tertiary center for interventional pulmonology if large pneumothorax persists ? Pulmonology, Dr. Dinh consulted. Appreciate recommendations Decompensated alcoholic cirrhosis with ascites Ascites s/p large-volume paracentesis 06/21/2024 Hypoalbuminemia Hyperbilirubinemia DDx: Infectious, autoimmune, alcohol induced, medication side effect, Toni's Patient previously had alcohol abuse disorder. Last drink was 2 weeks ago On exam as marked ascites. PLT 186, PT 16.3, INR 1.5, T. bili 2.3 ---> 1.3 Ammonia <10 Hepatitis panel negative MELD-Na ; 18 points; 3-4%. 90-day mortality Child-Reyez ; Class B. Indication for transplant evaluation. Abdominal surgery xiomara-operative mortality 30% On this admission patient received albumin 150g IV in total Plan: ? Cardiac diet - 1500 cc/day fluid restriction ? Pending autoimmune screen including alpha-1 antitrypsin, ADEBAYO, ceruloplasmin, copper, IgG serum, LK M?1 antibody, mitochondrial antibody ? Midodrine 10 Mg p.o. 3 times daily - Albumin 25 g IV daily ? To resume Lasix 20 Mg IV daily from tomorrow ? To resume spironolactone 25 Mg p.o. at bedtime from tomorrow Umbilical hernia Patient denies any pain On exam umbilicus everted, but reducible. No signs of incarceration or strangulation Plan: ? For outpatient management with general surgery Health maintenance: Disposition: Pending resolution of pneumothorax. Repeat chest x-ray at 5am Diet: 2G sodium restricted. 1500 cc fluid restriction Lines: pIVs GI Prophylaxis: None Thrombo Prophylaxis: SCDs Code status: FULL CODE Plan of care discussed with Attending Dr. Michel and PGY2 Dr. Ivan Fu MD PGY 1 Disclaimer: This note was dictated by speech recognition. Minor errors in acoustical material worker may be present due to voice recognition software. Attending Provider Attestation/Addendum I have examined the patient, reviewed labs and imaging findings, discussed the case with the resident(s), and reviewed entered orders. I agree with the plan of care as outlined in this note, with these additional summaries/recommendations: Patient seen at bedside. No acute overnight events. Today's morning chest x- ray shows right apical lateral pneumothorax is now down to approximately 10%. In-house pulmonology following and we will repeat chest x-ray this afternoon with possible removal of chest tube if indicated. If no improvement in pneumothorax we will likely continue chest tube with serial chest x-rays and if unresolving he will likely require cardiothoracic surgeon for VATS/surgical pleurodesis. Patient's pleural fluid culture preliminarily showing GPC's which I feel is most likely contamination as patient has no evidence of infection. We will continue to monitor and hold on administering antibiotics for now. Continue to avoid hepatotoxic agents for underlying cirrhosis secondary to alcohol use. Continue fluid restriction, fluid restriction, midodrine, Lasix, and spironolactone. Dr. Marilu MD
--- NOTE | 2024-06-30 09:47 | PC.SS ---
Follow up note: Pt still has chest tube. Possibly remove chest tomorrow and will require chest xray once removed. Pt will return home upon dc.
--- NOTE | 2024-06-30 12:00 | XR_ITS ---
Indication: AP chest single view Technique one AP portable upright chest single view Date and time: June 30, 2024 1213 hours Comparison June 30, 2024 0542 hours INDICATIONS: History right pneumothorax post chest tube placement this week. FINDINGS: Right chest tube satisfactory position Right apical lateral pneumothorax approximately 10% IMPRESSION: Right apical lateral pneumothorax, approximately 10%
[2024-07-01] VITALS (12 sets, daily range): BP systolic 92–102; BP diastolic 62–72; PULSE 64–92; RESP 14–20; TEMP 36.1–36.6; O2SAT 97–99
--- NOTE | 2024-07-01 05:00 | XR_ITS ---
Examination: AP chest single view Technique one AP portable upright chest single view Date and time: July 01, 2024 0545 hours Comparison June 30, 2024 INDICATIONS: History right pneumothorax post right chest tube placement FINDINGS: Stable right apical lateral pneumothorax, approximately 10% Right chest tube satisfactory position No significant cardiac enlargement IMPRESSION: Stable right apical lateral pneumothorax
[2024-07-01] MEDS: MIDODRINE 5 MG TABLET 10 MG PO ×3 (05:17→21:09)
[2024-07-01 05:49] LABS: Basophils # (Auto) 0.1 Thou/mm3 (0.0-0.2); Basophils % (Auto) 1 % (0-2.5); Eosinophils # (Auto) 0.4 Thou/mm3 (0.0-0.5); Eosinophils % (Auto) 7 % (0-10); Hematocrit 35.6 % (41.0-53.0); Hemoglobin 12.5 g/dL (13.5-16.0); Immature Granulocytes % (Auto) 0 % (0-0); Immature Granulocytes Auto 0.02 Thou/mm3 (0.00-0.00); Lymphocytes # (Auto) 1.6 Thou/mm3 (1.0-4.8); Lymphocytes % (Auto) 28 % (10-50); Mean Corpuscular HGB Conc 35.1 g/dl (31.0-37.0); Mean Corpuscular Hemoglobin 34.7 pg (25.0-35.0); Mean Corpuscular Volume 99 fL (80-100); Monocytes # (Auto) 0.6 Thou/mm3 (0.0-0.8); Monocytes % (Auto) 10 % (0-12); Neutrophils # (Auto) 3.1 Thou/mm3 (1.8-7.7); Neutrophils % (Auto) 54 % (37-80); Nucleated Red Blood Cell % 0 /100 WBC (0); Platelet Count 125 Thou/mm3 (140-440); RDW Standard Deviation 52.2 fL (35.1-43.9); White Blood Count 5.8 Thou/mm3 (3.8-10.6)
[2024-07-01 06:20] LABS: Alanine Aminotransferase 27 U/L (10-49); Albumin, Serum 3.2 gm/dL (3.5-5.0); Albumin/Globulin Ratio 1.3 (1.2-2.2); Alkaline Phosphatase 78 U/L (46-116); Anion Gap 7 (7-16); Aspartate Amino Transferase 29 U/L (0-34); BUN/Creatinine Ratio 27 Ratio (12-20); Bilirubin,Total 1.1 mg/dL (0.3-1.2); Blood Urea Nitrogen 16 mg/dL (9-23); Calcium 8.1 mg/dL (8.3-10.6); Calcium (Corrected) 8.7 mg/dL (8.5-10.1); Carbon Dioxide 29.5 mMol/L (20.0-31.0); Chloride 101 mMol/L (98-107); Creatinine (Component) 0.6 mg/dL (0.6-1.3); Estimated Creatinine Clearance 134.6 mL/min (>60); Globulin 2.4 gm/dL (2.3-3.5); Glucose 94 mg/dL (74-106); Osmolality,Calculated 275 (275-295); Potassium 4.2 mMol/L (3.4-5.1); Sodium 137 mMol/L (136-145); Total Protein 5.6 gm/dL (5.7-8.2); eGFR > 60 See Note
[2024-07-01 06:35] LABS: Alpha-1-Antitrypsin* 136 mg/dL (83-199); Mitochondrial Ab NEGATIVE (NEGATIVE)
[2024-07-01 06:36] LABS: Copper* 76 mcg/dL (70-175)
[2024-07-01] MEDS: LACTULOSE SYRUP 20 GM/30 ML UDC 10 GM PO (08:43)
[2024-07-01] MEDS: ALBUMIN HUMAN 25% IVPB 25 GM/100 ML BTL IV (08:43)
--- NOTE | 2024-07-01 11:51 | PD.PUPROG ---
Documentation for date of: 07/01/24 Subjective Subjective Interval history: Mr. Doss denies any acute complaints. Critical Care Note Critical care time (min.): 0 Exam Vital Signs Temp Pulse Resp BP Pulse Ox O2 Del Method O2 Flow Rate 97.3 F 70 16 98/72 99 Room Air 3 07/01/24 07:57 07/01/24 07:57 07/01/24 07:57 07/01/24 07:57 07/01/24 07:57 07/01/24 07:57 06/29/24 23:57 Narrative Exam GENERAL: Patient appears to be critically ill HEENT: No facial asymmetry, EOM normal, no epistaxis, neck supple, PULMONARY: no rales or wheezing, breath sounds are diminished CARDIAC: Regular rate and rhythm GASTROINTESTINAL: Abdomen is soft and nontender EXTREMITIES: Radial, femoral and pedal pulses are palpable. There is no leg edema SKIN: Warm and dry without significant rashes or discoloration. NEURO: mental status is normal answering all questions appropriately, symmetrical 5/5 bilateral upper and lower extremity motor strength. Physical Exam Completion Physical Exam Complete?: Yes Objective - Manager Process Excellence Labs 07/01/24 04:59 07/01/24 04:59 Labs: Laboratory Results - last 24 hr 06/24/24 07/01/24 05:01 04:59 WBC 5.8 RBC 3.60 L Hgb 12.5 L Hct 35.6 L MCV 99 MCH 34.7 MCHC 35.1 RDW Std Deviation 52.2 H Plt Count 125 L Neut % (Auto) 54 Lymph % (Auto) 28 [place] % (Auto) 10 Eos % (Auto) 7 Baso % (Auto) 1 Neut # (Auto) 3.1 Lymph # (Auto) 1.6 [place] # (Auto) 0.6 Eos # (Auto) 0.4 Baso # (Auto) 0.1 Immature Gran # (Auto) 0.02 H Absolute Nucleated RBC 0.00 Immature Gran % 0 Nucleated RBC % 0 Sodium 137 Potassium 4.2 Chloride 101 Carbon Dioxide 29.5 Anion Gap 7 BUN 16 Creatinine 0.6 Estim Creat Clear Calc 134.6 eGFR > 60 BUN/Creatinine Ratio 27 H Glucose 94 Calculated Osmolality 275 Calcium 8.1 L Corrected Calcium 8.7 Total Bilirubin 1.1 AST 29 ALT 27 Alkaline Phosphatase 78 D Total Protein 5.6 L Albumin 3.2 L Globulin 2.4 Albumin/Globulin Ratio 1.3 Alpha-1-AT (Send Out) 136 Plasma Copper 76 Anti-Mitochondrial Titr TNP Anti-Mitochondrial Ab NEGATIVE Assessment & Plan Additional Plan Additional Plan: Post procedure PTX Hepatic hydrothorax Residual pneumothorax while on waterseal for over 24 hours. No significant increase. Clinically stable Recommend clamp chest tube and repeat chest x-ray in 4 hours. Unclamp if patient becomes symptomatic. The etiology of the pleural effusion is likely due to hepatic hydrothorax. Unfortunately this is difficult to control and should be expected to return. Aggressive diuretics may be helpful including low-salt diet. However ultimately transplant is the most effective treatment. Patient may require as needed thoracenteses. The fluid analysis is consistent with an exudate. Unfortunately, the fluid was collected days after the chest tube was placed. If it was not collected as a clean catch (clamping chest tube and directly aspirating new output) the LDH is likely to be artificially increased from cell breakdown. The gram-positive cocci is likely to be a contaminant for the same reason or from poor sampling technique. The patient does not have an empyema.
[2024-07-01] MEDS: SPIRONOLACTONE 25 MG TABLET PO (13:25)
--- NOTE | 2024-07-01 13:35 | ESPR_ITS ---
Documentation for date of: 07/01/24 Subjective Subjective Interval history: Patient was seen and examined at bedside. Patient denied any symptoms no chest pain or shortness of breath. Vital signs normal except mild low blood pressure which is given midodrine. Patient has been under waterseal since last night has drained 400 mL, for the past 24 hours. His chest x-ray this morning showed 10% pneumothorax. We spoke with the methodologist Dr. Dinh recommended to clamp the chest tube and repeat chest x-ray after 4 hours, if symptoms return put the patient back under waterseal and suction. I also recommended to start the patient aggressive diuretics to prevent rapid recommendation of pleural fluid however cultures soft blood pressure will only start slowly with 25 mg of spironolactone and will uptitrate slowly if his blood pressures allow. His liver cirrhosis screening labs for autoimmune hepatitis, Toni's disease, alpha-1 antitrypsin deficiency all came back negative. Anticipated discharge within the next 24 to 48 hours. Exam Vital Signs Temp Pulse Resp BP Pulse Ox O2 Del Method O2 Flow Rate 97.6 F 83 20 95/67 99 Room Air 3 07/01/24 12:00 07/01/24 13:07/01/24 12:07/01/24 13:07/01/24 12:00 07/01/24 12:00 06/29/24 23:57 Narrative Exam GEN: AOx3, able to speak full sentences HEENT: NC/AC, icteric, oral mucosa moist, neck supple CVS: RRR, S1-S2 present, no murmurs appreciated RESP: Chest tube inserted on the right side, positive titling, no visible leak CTAB GI: Soft, trace abdominal distention, umbilical hernia, non tender, NBS MSK: able to move all 4 limbs, no lower extremity edema SKIN: warm and dry AIRCRAFT MAINTENANCE MANAGER: CN II-XII and Sensation grossly intact. Objective Labs 07/02/24 04:43 07/02/24 04:43 Labs: Laboratory Results - last 24 hr 06/24/24 07/01/24 05:01 04:59 WBC 5.8 RBC 3.60 L Hgb 12.5 L Hct 35.6 L MCV 99 MCH 34.7 MCHC 35.1 RDW Std Deviation 52.2 H Plt Count 125 L Neut % (Auto) 54 Lymph % (Auto) 28 [place] % (Auto) 10 Eos % (Auto) 7 Baso % (Auto) 1 Neut # (Auto) 3.1 Lymph # (Auto) 1.6 [place] # (Auto) 0.6 Eos # (Auto) 0.4 Baso # (Auto) 0.1 Immature Gran # (Auto) 0.02 H Absolute Nucleated RBC 0.00 Immature Gran % 0 Nucleated RBC % 0 Sodium 137 Potassium 4.2 Chloride 101 Carbon Dioxide 29.5 Anion Gap 7 BUN 16 Creatinine 0.6 Estim Creat Clear Calc 134.6 eGFR > 60 BUN/Creatinine Ratio 27 H Glucose 94 Calculated Osmolality 275 Calcium 8.1 L Corrected Calcium 8.7 Total Bilirubin 1.1 AST 29 ALT 27 Alkaline Phosphatase 78 D Total Protein 5.6 L Albumin 3.2 L Globulin 2.4 Albumin/Globulin Ratio 1.3 Alpha-1-AT (Send Out) 136 Plasma Copper 76 Anti-Mitochondrial Titr TNP Anti-Mitochondrial Ab NEGATIVE Quality Measures Quality Measures none Assessment & Plan Assessment Current Active Medications: Generic Name Dose Route Start Last Admin Trade Name Freq PRN Reason Stop Dose Admin Acetaminophen 650 mg 06/22/24 16:31 Acetaminophen 325 Mg Tablet PO 07/22/24 16:30 Q6H PRN Fever >100.3 or pain 1-3 Hydrocodone Bitart/Acetaminophen 1 tab 06/27/24 16:48 06/30/24 21:16 Hydrocodone/Apap 5/325 Tablet PO 07/02/24 16:47 1 tab Q6HR PRN Administration PAIN SCALE 4-6 (Moderate Furosemide 20 mg 06/29/24 09:00 Furosemide Inj 10 Mg/Ml 4ml Vial IVP 07/29/24 08:59 QDAY TOM Albumin Human 25 gm in 100 mls @ 100 mls/hr 06/29/24 09:00 07/01/24 08:43 Albuminar-25 Ivpb IV 07/02/24 08:59 100 mls/hr QDAY TOM Administration Midodrine 10 mg 06/22/24 16:45 07/01/24 13:24 Midodrine 5 Mg Tablet PO 07/22/24 16:44 10 mg TID TOM Administration Morphine Sulfate 2 mg 06/27/24 16:48 Morphine Sulf Inj 10 Mg/Ml Vial IVP 07/02/24 16:47 Q4HR PRN PAIN SCALE 7-10 (Severe Ondansetron HCl 4 mg 06/22/24 16:31 Ondansetron Inj 2 Mg/Ml Inj 2 Ml IV 07/22/24 16:30 Q6H PRN NAUSEA OR VOMITING Protocol Spironolactone 25 mg 07/01/24 12:15 07/01/24 13:25 Spironolactone 25 Mg Tablet PO 07/31/24 12:14 25 mg QDAY TOM Administration Plan Patient is a 53-year-old male with a past medical history significant for alcoholic cirrhosis with ascites presenting today with a chief complaint of shortness of breath x 1 day. Patient will be admitted for treatment and management of right-sided pneumothorax. Iatrogenic right pneumothorax secondary to thoracentesis Right-sided pleural effusion DDx: Hydrothorax, chylothorax, cancer, autoimmune Patient presented with shortness of breath since last night. On exam had reduced air entry on right lung. Chest x-ray revealed a large right-sided pleural effusion. CT chest/abdomen/pelvis significant for right chest tube in situ, rather mild to moderate right pleural effusion. Right-sided pneumothorax. Umbilical hernia and mild to moderate ascites. Patient has no complaints. Says he feels well Chest x-ray this a.m. showed less than 10% pneumothorax. Repeat X-ray showed approximately 10% pneumothorax Will discontinue intermittent suction and keep chest tube connected to underwater seal. Repeat chest x-ray at 12 PM as per pulmonology. Pulmonology, Dr. Dinh consulted and closely following the case. Pleural fluid studies indicative of exudative effusion. Lights criteria positive. Pleural fluid culture grew 2+ GPC preliminary Pleural fluid cytology showed no malignant cells. Numerous neutrophils Reviewed that WBC in the pleural fluid is contamination. Plan: ? Supplemental O2 via NC as necessary ? Encourage ambulation for re-expansion of lung. 10?20 labs per day - Incentive spirometry every 30 minutes - Discontinued intermittent suction. Clamp chest tube and repeat chest x-ray after 4 hours at 5 PM, if symptoms worsens put patient back on suction. ?Start the patient on spironolactone 25 mg p.o. daily ? Repeat chest x-ray 5 am - Pending pleural fluid culture ? Lidocaine patch as needed - At this time we do believe that the patient will need interventional pulmonology transfer or cardiothoracic surgery consultation during this admission ? Pulmonology, Dr. Dinh consulted. Appreciate recommendations Decompensated alcoholic cirrhosis with ascites Alcoholic liver cirrhosis Ascites s/p large-volume paracentesis 06/21/2024 Hypoalbuminemia Hyperbilirubinemia DDx: Infectious, autoimmune, alcohol induced, medication side effect, Toni's Patient previously had alcohol abuse disorder. Last drink was 2 weeks ago On exam as marked ascites. PLT 186, PT 16.3, INR 1.5, T. bili 2.3 ---> 1.3 Ammonia <10 Hepatitis panel negative MELD-Na ; 18 points; 3-4%. 90-day mortality Child-Reyez ; Class B. Indication for transplant evaluation. Abdominal surgery xiomara-operative mortality 30% On this admission patient received albumin 150g IV in total autoimmune screen including alpha-1 antitrypsin, ADEBAYO, ceruloplasmin, copper, IgG serum, LK M?1 antibody, mitochondrial antibody all came back negative Plan: ? Cardiac diet - 1500 cc/day fluid restriction ?Start the patient on spironolactone 25 mg p.o. daily ? Midodrine 10 Mg p.o. 3 times daily - Albumin 25 g IV daily, will stop tomorrow ? To resume Lasix 20 Mg IV daily from tomorrow ? To resume spironolactone 25 Mg p.o. at bedtime from tomorrow ? Alcohol cessation counseling Umbilical hernia Patient denies any pain On exam umbilicus everted, but reducible. No signs of incarceration or strangulation Plan: ? For outpatient management with general surgery Health maintenance: Disposition: Pending resolution of pneumothorax. Repeat chest x-ray at 5am Diet: 2G sodium restricted. 1500 cc fluid restriction Lines: pIVs GI Prophylaxis: None Thrombo Prophylaxis: SCDs Code status: FULL CODE - Patient's plan and care discussed with my attending, Dr. Marilu Love MD Internal Medicine PGY-2 Attending Provider Attestation/Addendum I have examined the patient, reviewed labs and imaging findings, discussed the case with the resident(s), and reviewed entered orders. I agree with the plan of care as outlined in this note, with these additional summaries/recommendations: Patient seen at bedside. No acute overnight events. Today's morning chest x-ray shows right apical lateral pneumothorax is now down to approximately 10%. In- house pulmonology following, we will clamp the chest tube and repeat chest x-ray after 4 hours. We will follow-up with pulmonology if chest tube can be removed. Continue to avoid hepatotoxic agents for underlying cirrhosis secondary to alcohol use. Continue fluid restriction, fluid restriction, midodrine, Lasix, and spironolactone. Dr. Marilu MD
--- NOTE | 2024-07-01 17:00 | XR_ITS ---
Examination: AP chest single view TECHNIQUE: AP portable upright chest single view Date and time: July 01, 2024 1717 hours Comparison July 01, 2024 1734 hours INDICATIONS: History right pneumothorax post right chest tube placement FINDINGS: Right chest tube in satisfactory position Right apical pneumothorax less than 10% Mild prominence left ventricle IMPRESSION: Right apical pneumothorax less than 10%
--- NOTE | 2024-07-01 23:00 | XR_ITS ---
Examination: AP chest single view Technique AP portable upright chest single view July 01, 2024 at 11:27 PM Comparison July 01, 2024 1714 hours INDICATIONS: History right pneumothorax post chest tube placement FINDINGS: Right chest tube satisfactory position Right apical pneumothorax 5% IMPRESSION: Right chest tube satisfactorily positioned 5% right apical pneumothorax
[2024-07-02] VITALS (9 sets, daily range): BP systolic 93–117; BP diastolic 66–80; PULSE 72–92; RESP 20–25; TEMP 36.1–36.6; O2SAT 96–99; BMI 25.0
[2024-07-02] MEDS: MIDODRINE 5 MG TABLET 10 MG PO ×2 (05:14→20:23)
[2024-07-02] MEDS: HYDROcodone/APAP 5/325 TABLET 1 TAB PO ×2 (05:16→18:02)
[2024-07-02 05:36] LABS: Basophils # (Auto) 0.1 Thou/mm3 (0.0-0.2); Basophils % (Auto) 1 % (0-2.5); Eosinophils # (Auto) 0.5 Thou/mm3 (0.0-0.5); Eosinophils % (Auto) 7 % (0-10); Hemoglobin 12.9 g/dL (13.5-16.0); Immature Granulocytes % (Auto) 0 % (0-0); Immature Granulocytes Auto 0.02 Thou/mm3 (0.00-0.00); Lymphocytes # (Auto) 1.5 Thou/mm3 (1.0-4.8); Lymphocytes % (Auto) 24 % (10-50); Mean Corpuscular HGB Conc 34.9 g/dl (31.0-37.0); Mean Corpuscular Hemoglobin 34.8 pg (25.0-35.0); Mean Corpuscular Volume 100 fL (80-100); Monocytes # (Auto) 0.7 Thou/mm3 (0.0-0.8); Monocytes % (Auto) 10 % (0-12); Neutrophils # (Auto) 3.6 Thou/mm3 (1.8-7.7); Neutrophils % (Auto) 58 % (37-80); Nucleated Red Blood Cell % 0 /100 WBC (0); Platelet Count 104 Thou/mm3 (140-440); RDW Standard Deviation 52.4 fL (35.1-43.9); Red Blood Count 3.71 Miln/mm3 (4.50-5.90); White Blood Count 6.3 Thou/mm3 (3.8-10.6)
[2024-07-02 06:05] LABS: Alanine Aminotransferase 27 U/L (10-49); Albumin, Serum 3.3 gm/dL (3.5-5.0); Albumin/Globulin Ratio 1.4 (1.2-2.2); Alkaline Phosphatase 113 U/L (46-116); Anion Gap 6 (7-16); Aspartate Amino Transferase 31 U/L (0-34); BUN/Creatinine Ratio 26 Ratio (12-20); Bilirubin,Total 0.9 mg/dL (0.3-1.2); Blood Urea Nitrogen 18 mg/dL (9-23); Calcium 8.2 mg/dL (8.3-10.6); Calcium (Corrected) 8.8 mg/dL (8.5-10.1); Carbon Dioxide 26.8 mMol/L (20.0-31.0); Chloride 104 mMol/L (98-107); Creatinine (Component) 0.7 mg/dL (0.6-1.3); Estimated Creatinine Clearance 115.4 mL/min (>60); Globulin 2.4 gm/dL (2.3-3.5); Glucose 115 mg/dL (74-106); Magnesium 2.1 mg/dL (1.6-2.6); Osmolality,Calculated 276 (275-295); Phosphorous 3.2 mg/dL (2.4-5.1); Potassium 4.5 mMol/L (3.4-5.1); Sodium 137 mMol/L (136-145); Total Protein 5.7 gm/dL (5.7-8.2); eGFR > 60 See Note
--- NOTE | 2024-07-02 07:41 | XR_ITS ---
Examination: AP chest single view Findings 1 AP portable sitting chest single view Date and time: July 02, 2024 0758 hours Comparison July 01, 2024 INDICATIONS: History right pneumothorax post right chest tube placement FINDINGS: Right chest tube has been slightly retracted Right apical lateral pneumothorax, estimated 15% Stable cardiac contour IMPRESSION: Right apical lateral pneumothorax, estimated 15%
[2024-07-02] MEDS: SPIRONOLACTONE 25 MG TABLET PO (08:36)
--- NOTE | 2024-07-02 08:56 | PC.SS ---
Follow up note: Pt still has chest tube. Pt will return home upon dc.
--- NOTE | 2024-07-02 10:03 | PD.RESPRO ---
Documentation for date of: 07/02/24 Subjective Subjective Interval history: Patient was seen and examined at bedside this AM. No acute exents overnight. Patient tolerating diet, adequate urine output and mentation is at baseline. Patient has no complaints. Says he feels well and wants to go home Chest x-ray this a.m. showed 15% pneumothorax. Repeat chest x-ray showed expanded and 15-20% pneumothorax Will unclamp chest tube and place on under waterseal. Repeat chest x-ray in the a.m. Pulmonology, Dr. Dinh consulted and closely following the case. Exam Vital Signs Temp Pulse Resp BP Pulse Ox O2 Del Method O2 Flow Rate 97.4 F 77 20 110/72 96 Room Air 3 07/02/24 08:00 07/02/24 08:36 07/02/24 08:00 07/02/24 08:36 07/02/24 08:00 07/02/24 08:00 06/29/24 23:57 Narrative Exam GEN: AOx3, able to speak full sentences HEENT: NC/AC, icteric, oral mucosa moist, neck supple CVS: RRR, S1-S2 present, no murmurs appreciated RESP: Chest tube inserted on the right side, positive titling, no visible leak CTAB GI: Soft, trace abdominal distention, umbilical hernia, non tender, NBS MSK: able to move all 4 limbs, no lower extremity edema SKIN: warm and dry GEOGRAPHY PROFESSOR: CN II-XII and Sensation grossly intact. Objective Labs 07/03/24 04:56 07/03/24 04:56 Labs: Laboratory Results - last 24 hr 07/02/24 04:43 WBC 6.3 RBC 3.71 L Hgb 12.9 L Hct 37.0 L MCV 100 MCH 34.8 MCHC 34.9 RDW Std Deviation 52.4 H Plt Count 104 L Neut % (Auto) 58 Lymph % (Auto) 24 [place] % (Auto) 10 Eos % (Auto) 7 Baso % (Auto) 1 Neut # (Auto) 3.6 Lymph # (Auto) 1.5 [place] # (Auto) 0.7 Eos # (Auto) 0.5 Baso # (Auto) 0.1 Immature Gran # (Auto) 0.02 H Absolute Nucleated RBC 0.00 Immature Gran % 0 Nucleated RBC % 0 Sodium 137 Potassium 4.5 Chloride 104 Carbon Dioxide 26.8 Anion Gap 6 L BUN 18 Creatinine 0.7 Estim Creat Clear Calc 115.4 eGFR > 60 BUN/Creatinine Ratio 26 H Glucose 115 H Calculated Osmolality 276 Calcium 8.2 L Corrected Calcium 8.8 Phosphorus 3.2 Magnesium 2.1 Total Bilirubin 0.9 AST 31 ALT 27 Alkaline Phosphatase 113 D Total Protein 5.7 Albumin 3.3 L Globulin 2.4 Albumin/Globulin Ratio 1.4 Quality Measures Quality Measures none Assessment & Plan Assessment Current Active Medications: Generic Name Dose Route Start Last Admin Trade Name Freq PRN Reason Stop Dose Admin Acetaminophen 650 mg 06/22/24 16:31 Acetaminophen 325 Mg Tablet PO 07/22/24 16:30 Q6H PRN Fever >100.3 or pain 1-3 Hydrocodone Bitart/Acetaminophen 1 tab 06/27/24 16:48 07/02/24 05:16 Hydrocodone/Apap 5/325 Tablet PO 07/02/24 16:47 1 tab Q6HR PRN Administration PAIN SCALE 4-6 (Moderate Furosemide 20 mg 06/29/24 09:00 Furosemide Inj 10 Mg/Ml 4ml Vial IVP 07/29/24 08:59 QDAY TOM Midodrine 10 mg 06/22/24 16:45 07/02/24 05:14 Midodrine 5 Mg Tablet PO 07/22/24 16:44 10 mg TID TOM Administration Morphine Sulfate 2 mg 06/27/24 16:48 Morphine Sulf Inj 10 Mg/Ml Vial IVP 07/02/24 16:47 Q4HR PRN PAIN SCALE 7-10 (Severe Ondansetron HCl 4 mg 06/22/24 16:31 Ondansetron Inj 2 Mg/Ml Inj 2 Ml IV 07/22/24 16:30 Q6H PRN NAUSEA OR VOMITING Protocol Spironolactone 25 mg 07/01/24 12:15 07/02/24 08:36 Spironolactone 25 Mg Tablet PO 07/31/24 12:14 25 mg QDAY TOM Administration Plan Patient is a 53-year-old male with a past medical history significant for alcoholic cirrhosis with ascites presenting today with a chief complaint of shortness of breath x 1 day. Patient will be admitted for treatment and management of right-sided pneumothorax. Iatrogenic right pneumothorax secondary to thoracentesis Right-sided pleural effusion DDx: Hydrothorax, chylothorax, cancer, autoimmune Patient presented with shortness of breath since last night. On exam had reduced air entry on right lung. Chest x-ray revealed a large right-sided pleural effusion. CT chest/abdomen/pelvis significant for right chest tube in situ, rather mild to moderate right pleural effusion. Right-sided pneumothorax. Umbilical hernia and mild to moderate ascites. Pleural fluid studies indicative of exudative effusion. Lights criteria positive. Pleural fluid culture grew 2+ GPC preliminary Pleural fluid cytology showed no malignant cells. Numerous neutrophils. Exudative nature of fluid and GPC's and culture most likely due to contamination from poor sample collection. Plan: ? Supplemental O2 via NC as necessary ? Encourage ambulation for re-expansion of lung. 10?20 labs per day - Incentive spirometry every 30 minutes ? Repeat chest x-ray 5 am ? Continue spironolactone 25 Mg p.o. daily ? Continue to hold Lasix - If output from chest tube greater than 2L , will give albumin 12.5 g IV. ? Lidocaine patch as needed - At this time we do not believe that the patient will need interventional pulmonology transfer or cardiothoracic surgery consultation during this admission ? Pulmonology, Dr. Dinh consulted. Appreciate recommendations Decompensated alcoholic cirrhosis with ascites Alcoholic liver cirrhosis Ascites s/p large-volume paracentesis 06/21/2024 Hypoalbuminemia Hyperbilirubinemia?resolved DDx: Infectious, autoimmune, alcohol induced, medication side effect, Toni's Patient previously had alcohol abuse disorder. Last drink was 2 weeks ago On exam as marked ascites. PLT 186, PT 16.3, INR 1.5, T. bili 2.3 ---> 1.3 Ammonia <10 Hepatitis panel negative MELD-Na ; 18 points; 3-4%. 90-day mortality Child-Reyez ; Class B. Indication for transplant evaluation. Abdominal surgery xiomara-operative mortality 30% On this admission patient received albumin 150g IV in total autoimmune screen including alpha-1 antitrypsin, ADEBAYO, ceruloplasmin, copper, IgG serum, LK M?1 antibody, mitochondrial antibody all came back negative Plan: ? Cardiac diet - 1500 cc/day fluid restriction ? Continue spironolactone 25 mg p.o. daily ? Continue to hold Lasix ? Midodrine 10 Mg p.o. 3 times daily as needed for MAP <65 ? Alcohol cessation counseling Umbilical hernia Patient denies any pain On exam umbilicus everted, but reducible. No signs of incarceration or strangulation Plan: ? For outpatient management with general surgery Health maintenance: Disposition: Pending resolution of pneumothorax. Repeat chest x-ray at 5am tomorrow Diet: 2G sodium restricted. 1500 cc fluid restriction Lines: pIVs GI Prophylaxis: None Thrombo Prophylaxis: SCDs Code status: FULL CODE Plan of care discussed with Attending Dr. Marilu Fu MD PGY 1 Disclaimer: This note was dictated by speech recognition. Minor errors in insurance office supervisor may be present due to voice recognition software. Attending Provider Attestation/Addendum I have examined the patient, reviewed labs and imaging findings, discussed the case with the resident(s), and reviewed entered orders. I agree with the plan of care as outlined in this note, with these additional summaries/recommendations: Patient seen at bedside. No acute overnight events. Yesterday evening's chest x-ray showed 5% right apical pneumothorax with satisfactory position of chest tube. Chest tube remained clamped and unfortunately this morning right apical lateral pneumothorax is now estimated to be 15%. Case discussed with in-house pulmonology who recommends keeping the chest tube clamped and repeating chest x-ray this afternoon. We will unclamp chest tube if patient becomes unstable at any point. If pneumothorax improves we will discuss with pulmonology about possible removal. Continue to avoid hepatotoxic agents for underlying cirrhosis secondary to alcohol use. Continue fluid restriction, midodrine, and spironolactone. Patient updated on the plan and in agreement. Please see residents note for additional details of management. Dr. Marilu MD
[2024-07-02] MEDS: PSYLLIUM 1 PKT PACKET PO (10:44)
--- NOTE | 2024-07-02 12:00 | XR_ITS ---
Examination: AP chest single view Technique one AP portable upright chest single view Date and time: July 02, 2024 1153 hours Comparison July 02, 2024 0758 hours INDICATIONS: History right pneumothorax post right chest tube placement FINDINGS: Right apical lateral pneumothorax, estimated 15-20% Mild prominence left ventricle Right chest tube stable position IMPRESSION: Right apical lateral pneumothorax estimated 15-20%
[2024-07-03] VITALS (12 sets, daily range): BP systolic 92–109; BP diastolic 58–79; PULSE 74–89; RESP 15–29; TEMP 36.2–36.9; O2SAT 92–97
[2024-07-03] MEDS: ACETAMINOPHEN 325 MG TABLET 650 MG PO (00:59)
--- NOTE | 2024-07-03 05:00 | XR_ITS ---
Examination: AP chest single view TECHNIQUE: AP portable upright chest single view Date and time: July 03, 2024 0543 hours Comparison July 02, 2024 INDICATIONS: History right pneumothorax post right chest tube placement FINDINGS: Right chest tube satisfactory position Right apical pneumothorax less than 10% Mild prominence left ventricle IMPRESSION: Right apical pneumothorax less than 10%
[2024-07-03] MEDS: MIDODRINE 5 MG TABLET 10 MG PO ×3 (05:38→21:22)
[2024-07-03 06:25] LABS: Basophils # (Auto) 0.1 Thou/mm3 (0.0-0.2); Basophils % (Auto) 1 % (0-2.5); Eosinophils # (Auto) 0.5 Thou/mm3 (0.0-0.5); Eosinophils % (Auto) 7 % (0-10); Hematocrit 36.3 % (41.0-53.0); Hemoglobin 12.6 g/dL (13.5-16.0); Immature Granulocytes % (Auto) 0 % (0-0); Immature Granulocytes Auto 0.02 Thou/mm3 (0.00-0.00); Lymphocytes # (Auto) 1.4 Thou/mm3 (1.0-4.8); Lymphocytes % (Auto) 22 % (10-50); Mean Corpuscular HGB Conc 34.7 g/dl (31.0-37.0); Mean Corpuscular Hemoglobin 35.1 pg (25.0-35.0); Mean Corpuscular Volume 101 fL (80-100); Monocytes # (Auto) 0.7 Thou/mm3 (0.0-0.8); Monocytes % (Auto) 11 % (0-12); Neutrophils # (Auto) 3.9 Thou/mm3 (1.8-7.7); Neutrophils % (Auto) 59 % (37-80); Nucleated Red Blood Cell % 0 /100 WBC (0); RDW Standard Deviation 53.2 fL (35.1-43.9); Red Blood Count 3.59 Miln/mm3 (4.50-5.90); White Blood Count 6.5 Thou/mm3 (3.8-10.6)
[2024-07-03 07:04] LABS: Alanine Aminotransferase 27 U/L (10-49); Albumin, Serum 3.2 gm/dL (3.5-5.0); Albumin/Globulin Ratio 1.3 (1.2-2.2); Alkaline Phosphatase 118 U/L (46-116); Anion Gap 8 (7-16); Aspartate Amino Transferase 29 U/L (0-34); BUN/Creatinine Ratio 27 Ratio (12-20); Bilirubin,Total 0.8 mg/dL (0.3-1.2); Blood Urea Nitrogen 16 mg/dL (9-23); Calcium 8.2 mg/dL (8.3-10.6); Calcium (Corrected) 8.8 mg/dL (8.5-10.1); Carbon Dioxide 25.9 mMol/L (20.0-31.0); Chloride 103 mMol/L (98-107); Creatinine (Component) 0.6 mg/dL (0.6-1.3); Estimated Creatinine Clearance 134.6 mL/min (>60); Globulin 2.4 gm/dL (2.3-3.5); Glucose 111 mg/dL (74-106); Magnesium 1.9 mg/dL (1.6-2.6); Osmolality,Calculated 276 (275-295); Phosphorous 3.8 mg/dL (2.4-5.1); Potassium 4.2 mMol/L (3.4-5.1); Sodium 137 mMol/L (136-145); Total Protein 5.6 gm/dL (5.7-8.2); eGFR > 60 See Note
[2024-07-03 07:09] LABS: Platelet Count 118 Thou/mm3 (140-440)
[2024-07-03] MEDS: SPIRONOLACTONE 25 MG TABLET PO ×2 (09:33→13:09)
[2024-07-03] MEDS: PSYLLIUM 1 PKT PACKET PO (09:35)
--- NOTE | 2024-07-03 09:57 | ESPR_ITS ---
<Statement entered by Elizabeth Love MD - 07/04/24 17:48> Patient was seen and examined at bedside, agree on the assessment and plan on this note. - Patient's plan and care discussed with my attending, Dr. Marilu Love MD Internal Medicine PGY-2 Documentation for date of: 07/03/24 Subjective Subjective Interval history: Patient was seen and examined at bedside this AM. No acute exents overnight. Patient tolerating diet, adequate urine output and mentation is at baseline. Patient has no complaints. Says he feels well and wants to go home Chest x-ray this a.m. showed <10% pneumothorax. Output from chest tube 1.8 L in past 24 hours. Gave albumin 12.5 g IV x 1. Increased spironolactone to 50 Mg p.o. daily Will keep chest tube on under waterseal. Repeat chest x-ray in the a.m. Pulmonology, Dr. Overton consulted and closely following the case. Exam Vital Signs Temp Pulse Resp BP Pulse Ox O2 Del Method O2 Flow Rate 97.7 F 74 19 100/71 97 Room Air 3 07/03/24 08:00 07/03/24 09:33 07/03/24 08:00 07/03/24 09:33 07/03/24 08:00 07/03/24 08:00 06/29/24 23:57 Narrative Exam Constitutional Alert, oriented x 3 and comfortable. Middle-age male, scleral icterus?improved HEENT Vision grossly intact. Patent nares. Trachea midline Respiratory Right-sided chest tube in situ connected to underwater seal, reduced air entry right supraclavicular and middle lobe Cardiovascular S1 and S2 audible, RRR. No murmurs carotid bruit. No gross JVD. Abdominal Soft, non-tender, umbilicus everted, reducible. BS +. Genitourinary No bladder tenderness, no flank pain. Normal to palpation Musculoskeletal Extremities tone within normal limits. No LE edema. Neurological CN II - XII grossly intact. Extremity motor and sensation grossly intact. Negative for asterixis Skin Warm, dry and intact. No apparent lesions. Psychiatric Patient has good affect, is cooperative Objective Labs 07/04/24 04:43 07/04/24 04:43 Labs: Laboratory Results - last 24 hr 07/03/24 04:56 WBC 6.5 RBC 3.59 L Hgb 12.6 L Hct 36.3 L MCV 101 H MCH 35.1 H MCHC 34.7 RDW Std Deviation 53.2 H Plt Count 118 L Neut % (Auto) 59 Lymph % (Auto) 22 [place] % (Auto) 11 Eos % (Auto) 7 Baso % (Auto) 1 Neut # (Auto) 3.9 Lymph # (Auto) 1.4 [place] # (Auto) 0.7 Eos # (Auto) 0.5 Baso # (Auto) 0.1 Immature Gran # (Auto) 0.02 H Absolute Nucleated RBC 0.00 Immature Gran % 0 Nucleated RBC % 0 Sodium 137 Potassium 4.2 Chloride 103 Carbon Dioxide 25.9 Anion Gap 8 BUN 16 Creatinine 0.6 Estim Creat Clear Calc 134.6 eGFR > 60 BUN/Creatinine Ratio 27 H Glucose 111 H Calculated Osmolality 276 Calcium 8.2 L Corrected Calcium 8.8 Phosphorus 3.8 Magnesium 1.9 Total Bilirubin 0.8 AST 29 ALT 27 Alkaline Phosphatase 118 H Total Protein 5.6 L Albumin 3.2 L Globulin 2.4 Albumin/Globulin Ratio 1.3 Quality Measures Quality Measures none Assessment & Plan Assessment Current Active Medications: Generic Name Dose Route Start Last Admin Trade Name Freq PRN Reason Stop Dose Admin Acetaminophen 650 mg 06/22/24 16:31 07/03/24 00:59 Acetaminophen 325 Mg Tablet PO 07/22/24 16:30 650 mg Q6H PRN Administration Fever >100.3 or pain 1-3 Furosemide 20 mg 06/29/24 09:00 Furosemide Inj 10 Mg/Ml 4ml Vial IVP 07/29/24 08:59 QDAY TOM Albumin Human 12.5 gm in 50 mls @ 50 mls/hr 07/03/24 09:21 Albuminar-25 Ivpb IV 07/03/24 10:20 X1 ONE Midodrine 10 mg 07/02/24 22:00 07/03/24 05:38 Midodrine 5 Mg Tablet PO 08/01/24 21:59 10 mg TID TOM Administration Ondansetron HCl 4 mg 06/22/24 16:31 Ondansetron Inj 2 Mg/Ml Inj 2 Ml IV 07/22/24 16:30 Q6H PRN NAUSEA OR VOMITING Protocol Psyllium Hydrophilic Mucilloid 1 pkt 07/02/24 10:15 05/17/25 09:35 Psyllium 1 Pkt Packet PO 08/01/24 10:14 1 pkt QDAY TOM Administration Protocol Spironolactone 25 mg 07/01/24 12:15 07/03/24 09:33 Spironolactone 25 Mg Tablet PO 07/31/24 12:14 25 mg QDAY TOM Administration Plan Patient is a 53-year-old male with a past medical history significant for alcoholic cirrhosis with ascites presenting today with a chief complaint of shortness of breath x 1 day. Patient will be admitted for treatment and management of right-sided pneumothorax. Iatrogenic right pneumothorax secondary to thoracentesis Right-sided pleural effusion DDx: Hydrothorax, chylothorax, cancer, autoimmune Patient presented with shortness of breath since last night. On exam had reduced air entry on right lung. Chest x-ray revealed a large right-sided pleural effusion. CT chest/abdomen/pelvis significant for right chest tube in situ, rather mild to moderate right pleural effusion. Right-sided pneumothorax. Umbilical hernia and mild to moderate ascites. Pleural fluid studies indicative of exudative effusion. Lights criteria positive. Pleural fluid culture grew 2+ GPC preliminary Pleural fluid cytology showed no malignant cells. Numerous neutrophils. Exudative nature of fluid and GPC's and culture most likely due to contamination from poor sample collection. Chest x-ray this a.m. showed <10% pneumothorax. Output from chest tube 1.8 L in past 24 hours. Gave albumin 12.5 g IV x 1. Increased spironolactone to 50 Mg p.o. daily Will keep chest tube on under waterseal. Repeat chest x-ray in the a.m. Pulmonology, Dr. Overton consulted and closely following the case. Plan: ? Supplemental O2 via NC as necessary ? Encourage ambulation for re-expansion of lung. 10?20 labs per day - Incentive spirometry every 30 minutes ? Repeat chest x-ray 5 am ? Increased spironolactone to 50 Mg p.o. daily - Albumin 12.5 g IV x 1 ? Continue to hold Lasix ? Lidocaine patch as needed - Chest tube connected to underwater seal. - At this time we do not believe that the patient will need interventional pulmonology transfer or cardiothoracic surgery consultation during this admission ? Pulmonology, Dr. Overton consulted and closely following the case. Decompensated alcoholic cirrhosis with ascites Alcoholic liver cirrhosis Ascites s/p large-volume paracentesis 06/21/2024 Hypoalbuminemia Hyperbilirubinemia?resolved DDx: Infectious, autoimmune, alcohol induced, medication side effect, Toni's Patient previously had alcohol abuse disorder. Last drink was 2 weeks ago On exam as marked ascites. PLT 186, PT 16.3, INR 1.5, T. bili 2.3 ---> 0.8 Ammonia <10 Hepatitis panel negative MELD-Na ; 18 points; 3-4%. 90-day mortality Child-Reyez ; Class B. Indication for transplant evaluation. Abdominal surgery xiomara-operative mortality 30% On this admission patient received albumin 150g IV in total autoimmune screen including alpha-1 antitrypsin, ADEBAYO, ceruloplasmin, copper, IgG serum, LK M?1 antibody, mitochondrial antibody all came back negative Plan: ? Cardiac diet - 1500 cc/day fluid restriction ? Increased spironolactone to 50 Mg p.o. daily - Albumin 12.5 g IV x 1 ? Continue to hold Lasix ? Midodrine 10 Mg p.o. 3 times daily ? Alcohol cessation counseling Umbilical hernia Patient denies any pain On exam umbilicus everted, but reducible. No signs of incarceration or strangulation Plan: ? For outpatient management with general surgery Health maintenance: Disposition: Pending resolution of pneumothorax. Repeat chest x-ray at 5am tomorrow Diet: 2G sodium restricted. 1500 cc fluid restriction Lines: pIVs GI Prophylaxis: None Thrombo Prophylaxis: SCDs Code status: FULL CODE Plan of care discussed with Attending Dr. Michel and PGY 2 Dr. Ivan Fu MD PGY 1 Disclaimer: This note was dictated by speech recognition. Minor errors in engineering technical specialist may be present due to voice recognition software. Attending Provider Attestation/Addendum I have examined the patient, reviewed labs and imaging findings, discussed the case with the resident(s), and reviewed entered orders. I agree with the plan of care as outlined in this note, with these additional summaries/recommendations: Patient seen at bedside. No acute overnight events. Patient has no acute complaints and is anxious to have the chest tube removed. Today's chest x-ray shows right apical pneumothorax less than 10%. Will continue chest tube management and in-house pulmonology following. Continue low salt diet, fluid restriction, and diuresis for cirrhosis. Please see residents note for additional details and management. Dr. Marilu MD
[2024-07-03] MEDS: ALBUMIN HUMAN 25% IVPB 12.5 GM/50 ML BTL IV (10:15)
[2024-07-04] VITALS (11 sets, daily range): BP systolic 95–107; BP diastolic 56–71; PULSE 67–90; RESP 16–28; TEMP 36.4–36.9; O2SAT 93–98
--- NOTE | 2024-07-04 05:00 | XR_ITS ---
Examination: AP chest single view TECHNIQUE: Portable sitting AP chest single view Date and time: July 04, 2024 0459 hours INDICATIONS: History right pneumothorax post chest tube placement FINDINGS: Right chest tube satisfactory position Full expansion right lung Mild prominence left ventricle IMPRESSION: Full expansion right lung
[2024-07-04] MEDS: MIDODRINE 5 MG TABLET 10 MG PO ×3 (05:18→21:04)
[2024-07-04 05:43] LABS: Basophils # (Auto) 0.1 Thou/mm3 (0.0-0.2); Basophils % (Auto) 1 % (0-2.5); Eosinophils # (Auto) 0.4 Thou/mm3 (0.0-0.5); Eosinophils % (Auto) 6 % (0-10); Immature Granulocytes % (Auto) 0 % (0-0); Immature Granulocytes Auto 0.01 Thou/mm3 (0.00-0.00); Lymphocytes # (Auto) 1.5 Thou/mm3 (1.0-4.8); Lymphocytes % (Auto) 22 % (10-50); Mean Corpuscular HGB Conc 34.2 g/dl (31.0-37.0); Mean Corpuscular Hemoglobin 34.4 pg (25.0-35.0); Mean Corpuscular Volume 101 fL (80-100); Monocytes # (Auto) 0.6 Thou/mm3 (0.0-0.8); Monocytes % (Auto) 8 % (0-12); Neutrophils # (Auto) 4.1 Thou/mm3 (1.8-7.7); Neutrophils % (Auto) 62 % (37-80); Nucleated Red Blood Cell % 0 /100 WBC (0); Red Blood Count 3.78 Miln/mm3 (4.50-5.90); White Blood Count 6.6 Thou/mm3 (3.8-10.6)
[2024-07-04 06:06] LABS: Alanine Aminotransferase 30 U/L (10-49); Albumin, Serum 3.3 gm/dL (3.5-5.0); Albumin/Globulin Ratio 1.4 (1.2-2.2); Alkaline Phosphatase 101 U/L (46-116); Anion Gap 6 (7-16); Aspartate Amino Transferase 30 U/L (0-34); BUN/Creatinine Ratio 32 Ratio (12-20); Bilirubin,Total 1.1 mg/dL (0.3-1.2); Blood Urea Nitrogen 16 mg/dL (9-23); Calcium 8.1 mg/dL (8.3-10.6); Calcium (Corrected) 8.7 mg/dL (8.5-10.1); Chloride 106 mMol/L (98-107); Creatinine (Component) 0.5 mg/dL (0.6-1.3); Estimated Creatinine Clearance 161.5 mL/min (>60); Globulin 2.3 gm/dL (2.3-3.5); Glucose 103 mg/dL (74-106); Osmolality,Calculated 276 (275-295); Phosphorous 3.7 mg/dL (2.4-5.1); Potassium 4.5 mMol/L (3.4-5.1); Sodium 138 mMol/L (136-145); Total Protein 5.6 gm/dL (5.7-8.2); eGFR > 60 See Note
[2024-07-04 06:34] LABS: Platelet Count 130 Thou/mm3 (140-440)
--- NOTE | 2024-07-04 07:51 | ESPR_ITS ---
<Statement entered by Elizabeth Love MD - 07/05/24 16:37> Patient was seen and examined at bedside. Agree with assessment and plan at this note - Patient's plan and care discussed with my attending, Dr. Marilu Love MD Internal Medicine PGY-2 Documentation for date of: 07/04/24 Subjective Subjective Interval history: Patient was seen and examined at bedside this AM. No acute exents overnight. Patient tolerating diet, adequate urine output and mentation is at baseline. Patient has no complaints. Says he feels well and wants to go home Chest x-ray this a.m. showed full expansion of right lung Chest tube clamped since last night For possible removal of chest tube today after discussion with squaring machine operator, Dr. Overton. Exam Vital Signs Temp Pulse Resp BP Pulse Ox O2 Del Method O2 Flow Rate 98.3 F 74 16 95/56 L 96 Room Air 3 07/04/24 04:00 07/04/24 05:18 07/04/24 04:00 07/04/24 05:18 07/04/24 04:00 07/04/24 04:00 06/29/24 23:57 Narrative Exam Constitutional Alert, oriented x 3 and comfortable. Middle-age male, scleral icterus?improved HEENT Vision grossly intact. Patent nares. Trachea midline Respiratory Right-sided chest tube in situ and clamped, air entry improved in all zones. Cardiovascular S1 and S2 audible, RRR. No murmurs carotid bruit. No gross JVD. Abdominal Soft, non-tender, umbilicus everted, reducible. BS +. Genitourinary No bladder tenderness, no flank pain. Normal to palpation Musculoskeletal Extremities tone within normal limits. No LE edema. Neurological CN II - XII grossly intact. Extremity motor and sensation grossly intact. Negative for asterixis Skin Warm, dry and intact. No apparent lesions. Psychiatric Patient has good affect, is cooperative Objective Labs 07/05/24 05:04 07/05/24 05:04 Labs: Laboratory Results - last 24 hr 07/04/24 04:43 WBC 6.6 RBC 3.78 L Hgb 13.0 L Hct 38.0 L MCV 101 H MCH 34.4 MCHC 34.2 RDW Std Deviation 53.0 H Plt Count 130 L Neut % (Auto) 62 Lymph % (Auto) 22 [place] % (Auto) 8 Eos % (Auto) 6 Baso % (Auto) 1 Neut # (Auto) 4.1 Lymph # (Auto) 1.5 [place] # (Auto) 0.6 Eos # (Auto) 0.4 Baso # (Auto) 0.1 Immature Gran # (Auto) 0.01 H Absolute Nucleated RBC 0.00 Immature Gran % 0 Nucleated RBC % 0 Sodium 138 Potassium 4.5 Chloride 106 Carbon Dioxide 26.0 Anion Gap 6 L BUN 16 Creatinine 0.5 L Estim Creat Clear Calc 161.5 eGFR > 60 BUN/Creatinine Ratio 32 H Glucose 103 Calculated Osmolality 276 Calcium 8.1 L Corrected Calcium 8.7 Phosphorus 3.7 Magnesium 2.0 Total Bilirubin 1.1 AST 30 ALT 30 Alkaline Phosphatase 101 Total Protein 5.6 L Albumin 3.3 L Globulin 2.3 Albumin/Globulin Ratio 1.4 Quality Measures Quality Measures none Assessment & Plan Assessment Current Active Medications: Generic Name Dose Route Start Last Admin Trade Name Freq PRN Reason Stop Dose Admin Acetaminophen 650 mg 06/22/24 16:31 07/03/24 00:59 Acetaminophen 325 Mg Tablet PO 07/22/24 16:30 650 mg Q6H PRN Administration Fever >100.3 or pain 1-3 Lidocaine 1 patch 07/03/24 10:55 Lidocaine 5% 1 Patch TOP 08/02/24 10:54 UD PRN Pain at chest tube Midodrine 10 mg 07/02/24 22:00 07/04/24 05:18 Midodrine 5 Mg Tablet PO 08/01/24 21:59 10 mg TID TOM Administration Ondansetron HCl 4 mg 06/22/24 16:31 Ondansetron Inj 2 Mg/Ml Inj 2 Ml IV 07/22/24 16:30 Q6H PRN NAUSEA OR VOMITING Protocol Psyllium Hydrophilic Mucilloid 1 pkt 07/02/24 10:15 07/03/24 09:35 Psyllium 1 Pkt Packet PO 08/01/24 10:14 1 pkt QDAY TOM Administration Protocol Spironolactone 50 mg 07/04/24 09:00 Spironolactone 25 Mg Tablet PO 08/03/24 08:59 DAILY TOM Plan Patient is a 53-year-old male with a past medical history significant for alcoholic cirrhosis with ascites presenting today with a chief complaint of shortness of breath x 1 day. Patient will be admitted for treatment and management of right-sided pneumothorax. Iatrogenic right pneumothorax secondary to thoracentesis Right-sided pleural effusion DDx: Hydrothorax, chylothorax, cancer, autoimmune Patient presented with shortness of breath since last night. On exam had reduced air entry on right lung. Chest x-ray revealed a large right-sided pleural effusion. CT chest/abdomen/pelvis significant for right chest tube in situ, rather mild to moderate right pleural effusion. Right-sided pneumothorax. Umbilical hernia and mild to moderate ascites. Pleural fluid studies indicative of exudative effusion. Lights criteria positive. Pleural fluid culture grew 2+ GPC preliminary Pleural fluid cytology showed no malignant cells. Numerous neutrophils. Exudative nature of fluid and GPC's and culture most likely due to contamination from poor sample collection. Patient has no complaints. Says he feels well and wants to go home Chest x-ray this a.m. showed full expansion of right lung Chest tube clamped since last night For possible removal of chest tube today after discussion with squaring machine operator, Dr. Overton. Plan: ? Supplemental O2 via NC as necessary ? Encourage ambulation for re-expansion of lung. 10?20 labs per day - Incentive spirometry every 30 minutes ? Repeat chest x-ray in 4 hours ? Continue spironolactone to 50 Mg p.o. daily ? Continue to hold Lasix ? Lidocaine patch as needed - Chest tube clamped. For possible removal today - At this time we do not believe that the patient will need interventional pulmonology transfer or cardiothoracic surgery consultation during this admission ? Pulmonology, Dr. Overton consulted and closely following the case. Decompensated alcoholic cirrhosis with ascites Alcoholic liver cirrhosis Ascites s/p large-volume paracentesis 06/21/2024 Hypoalbuminemia Hyperbilirubinemia?resolved DDx: Infectious, autoimmune, alcohol induced, medication side effect, Toni's Patient previously had alcohol abuse disorder. Last drink was 2 weeks ago On exam as marked ascites. PLT 186, PT 16.3, INR 1.5, T. bili 2.3 ---> 0.8 Ammonia <10 Hepatitis panel negative MELD-Na ; 18 points; 3-4%. 90-day mortality Child-Reyez ; Class B. Indication for transplant evaluation. Abdominal surgery xiomara-operative mortality 30% On this admission patient received albumin 150g IV in total autoimmune screen including alpha-1 antitrypsin, ADEBAYO, ceruloplasmin, copper, IgG serum, LK M?1 antibody, mitochondrial antibody all came back negative Plan: ? Cardiac diet - 1500 cc/day fluid restriction ? Continue spironolactone to 50 Mg p.o. daily ? Continue to hold Lasix ? Midodrine 10 Mg p.o. 3 times daily ? Alcohol cessation counseling Umbilical hernia Patient denies any pain On exam umbilicus everted, but reducible. No signs of incarceration or strangulation Plan: ? For outpatient management with general surgery Health maintenance: Disposition: For possible removal of chest tube today Diet: 2G sodium restricted. 1500 cc fluid restriction Lines: pIVs GI Prophylaxis: None Thrombo Prophylaxis: SCDs Code status: FULL CODE Plan of care discussed with Attending Dr. Michel and PGY 2 Dr. Ivan Fu MD PGY 1 Disclaimer: This note was dictated by speech recognition. Minor errors in hydrogen cell tender may be present due to voice recognition software. Attending Provider Attestation/Addendum I have examined the patient, reviewed labs and imaging findings, discussed the case with the resident(s), and reviewed entered orders. I agree with the plan of care as outlined in this note. Dr. Michel
[2024-07-04] MEDS: SPIRONOLACTONE 25 MG TABLET 50 MG PO (08:04)
[2024-07-04] MEDS: PSYLLIUM 1 PKT PACKET PO (08:05)
--- NOTE | 2024-07-04 12:00 | XR_ITS ---
Examination: AP chest single view Technique one AP semiupright portable chest single view Date and time: July 04, 2024 1259 hours Comparison July 04, 2024 INDICATIONS: History right pneumothorax post chest tube placement. FINDINGS: Right chest tube satisfactory position Excellent expansion right lung IMPRESSION: Excellent expansion right lung
[2024-07-04 15:56] LABS: Cocci Serology, IgM Negative (Negative)
--- NOTE | 2024-07-04 16:33 | PC.NURSE ---
[facility] down time occurred on 07/04/2024 from [id number].
[2024-07-05] VITALS (8 sets, daily range): BP systolic 92–135; BP diastolic 62–88; PULSE 72–89; RESP 16–21; TEMP 36.1–36.8; O2SAT 93–97
--- NOTE | 2024-07-05 05:00 | XR_ITS ---
Examination: AP chest single view TECHNIQUE: AP portable upright chest single view Date and time: July 05, 2024 0618 hours Comparison July 04, 2024 FINDINGS: Right chest tube satisfactory position Mild fluid capping the lung surface on the right Mild prominence of ventricle Scarring versus mild atelectasis left midlung IMPRESSION: Mild fluid capping the lung surface on the right
[2024-07-05] MEDS: MIDODRINE 5 MG TABLET 10 MG PO ×2 (05:38→13:39)
[2024-07-05 06:53] LABS: Basophils # (Auto) 0.1 Thou/mm3 (0.0-0.2); Basophils % (Auto) 1 % (0-2.5); Eosinophils # (Auto) 0.3 Thou/mm3 (0.0-0.5); Eosinophils % (Auto) 5 % (0-10); Hemoglobin 12.5 g/dL (13.5-16.0); Immature Granulocytes % (Auto) 1 % (0-0); Immature Granulocytes Auto 0.03 Thou/mm3 (0.00-0.00); Lymphocytes # (Auto) 1.5 Thou/mm3 (1.0-4.8); Lymphocytes % (Auto) 24 % (10-50); Mean Corpuscular HGB Conc 34.7 g/dl (31.0-37.0); Mean Corpuscular Hemoglobin 35.2 pg (25.0-35.0); Mean Corpuscular Volume 101 fL (80-100); Monocytes # (Auto) 0.5 Thou/mm3 (0.0-0.8); Monocytes % (Auto) 9 % (0-12); Neutrophils # (Auto) 3.8 Thou/mm3 (1.8-7.7); Neutrophils % (Auto) 61 % (37-80); Nucleated Red Blood Cell % 0 /100 WBC (0); Platelet Count 96 Thou/mm3 (140-440); RDW Standard Deviation 53.4 fL (35.1-43.9); Red Blood Count 3.55 Miln/mm3 (4.50-5.90); White Blood Count 6.2 Thou/mm3 (3.8-10.6)
[2024-07-05 07:06] LABS: Alanine Aminotransferase 27 U/L (10-49); Albumin/Globulin Ratio 1.3 (1.2-2.2); Alkaline Phosphatase 85 U/L (46-116); Anion Gap 7 (7-16); Aspartate Amino Transferase 27 U/L (0-34); BUN/Creatinine Ratio 23 Ratio (12-20); Bilirubin,Total 1.2 mg/dL (0.3-1.2); Blood Urea Nitrogen 14 mg/dL (9-23); Calcium 8.3 mg/dL (8.3-10.6); Calcium (Corrected) 9.1 mg/dL (8.5-10.1); Carbon Dioxide 25.5 mMol/L (20.0-31.0); Chloride 107 mMol/L (98-107); Creatinine (Component) 0.6 mg/dL (0.6-1.3); Estimated Creatinine Clearance 134.6 mL/min (>60); Globulin 2.4 gm/dL (2.3-3.5); Glucose 100 mg/dL (74-106); Magnesium 1.9 mg/dL (1.6-2.6); Osmolality,Calculated 278 (275-295); Phosphorous 4.2 mg/dL (2.4-5.1); Potassium 4.6 mMol/L (3.4-5.1); Sodium 139 mMol/L (136-145); Total Protein 5.4 gm/dL (5.7-8.2); eGFR > 60 See Note
--- NOTE | 2024-07-05 08:21 | PD.RESPRO ---
Documentation for date of: 07/05/24 Exam Vital Signs Temp Pulse Resp BP Pulse Ox O2 Del Method O2 Flow Rate 97.1 F 75 21 H 92/62 95 Room Air 3 07/05/24 04:00 07/05/24 05:38 07/05/24 04:00 07/05/24 05:38 07/05/24 04:00 07/05/24 04:00 06/29/24 23:57 Objective Labs 07/05/24 05:04 07/05/24 05:04 Labs: Laboratory Results - last 24 hr 07/04/24 07/05/24 04:43 05:04 WBC 6.2 RBC 3.55 L Hgb 12.5 L Hct 36.0 L MCV 101 H MCH 35.2 H MCHC 34.7 RDW Std Deviation 53.4 H Plt Count 96 L D Neut % (Auto) 61 Lymph % (Auto) 24 [place] % (Auto) 9 Eos % (Auto) 5 Baso % (Auto) 1 Neut # (Auto) 3.8 Lymph # (Auto) 1.5 [place] # (Auto) 0.5 Eos # (Auto) 0.3 Baso # (Auto) 0.1 Immature Gran # (Auto) 0.03 H Absolute Nucleated RBC 0.00 Immature Gran % 1 H Nucleated RBC % 0 Sodium 139 Potassium 4.6 Chloride 107 Carbon Dioxide 25.5 Anion Gap 7 BUN 14 Creatinine 0.6 Estim Creat Clear Calc 134.6 eGFR > 60 BUN/Creatinine Ratio 23 H Glucose 100 Calculated Osmolality 278 Calcium 8.3 Corrected Calcium 9.1 Phosphorus 4.2 Magnesium 1.9 Total Bilirubin 1.2 AST 27 ALT 27 Alkaline Phosphatase 85 Total Protein 5.4 L Albumin 3.0 L Globulin 2.4 Albumin/Globulin Ratio 1.3 Coccidioides IgM Ab Negative Quality Measures Quality Measures none Assessment & Plan Assessment Current Active Medications: Generic Name Dose Route Start Last Admin Trade Name Freq PRN Reason Stop Dose Admin Acetaminophen 650 mg 06/22/24 16:31 07/03/24 00:59 Acetaminophen 325 Mg Tablet PO 07/22/24 16:30 650 mg Q6H PRN Administration Fever >100.3 or pain 1-3 Lidocaine 1 patch 07/03/24 10:55 Lidocaine 5% 1 Patch TOP 08/02/24 10:54 UD PRN Pain at chest tube Protocol Midodrine 10 mg 07/02/24 22:00 07/05/24 05:38 Midodrine 5 Mg Tablet PO 08/01/24 21:59 10 mg TID TOM Administration Ondansetron HCl 4 mg 06/22/24 16:31 Ondansetron Inj 2 Mg/Ml Inj 2 Ml IV 07/22/24 16:30 Q6H PRN NAUSEA OR VOMITING Protocol Psyllium Hydrophilic Mucilloid 1 pkt 07/02/24 10:15 07/04/24 08:05 Psyllium 1 Pkt Packet PO 08/01/24 10:14 1 pkt QDAY TOM Administration Protocol Spironolactone 50 mg 07/04/24 09:00 07/04/24 08:04 Spironolactone 25 Mg Tablet PO 08/03/24 08:59 50 mg DAILY TOM Administration
[2024-07-05] MEDS: PSYLLIUM 1 PKT PACKET PO (09:21)
[2024-07-05] MEDS: SPIRONOLACTONE 25 MG TABLET 50 MG PO (09:21)
--- NOTE | 2024-07-05 10:17 | PC.SS ---
Follow up note: Pt has fluid collections in lung. Still has chest tube. Possible removal of chest tube today. Pt will return home upon dc.
--- NOTE | 2024-07-05 13:00 | PD.RESDS ---
Planned Discharge Date 07/05/24 DS: Providers Provider Date of admission: 06/22/24 16:06 Primary care physician: Physician No Primary/Family Admitting Provider: Neymar Pederson MD Attending Provider on Admission: Andrés Michel MD Consults: 06/23/24 11:03 Consult to Pulmonology Routine Comment: Right pneumothorax Consulting Provider: Kaveh Pike I 06/27/24 12:46 Consult to Pulmonology Routine Comment: PTX Consulting Provider: Godfrey Dinh 07/03/24 08:21 Consult to Pulmonology Routine Comment: Right iatrogenic pneumothorax, hepatic hydrothorax Consulting Provider: Tereso Overton Attending Provider on DC: Andrés Michel MD Discharging Provider: Shawn Fu MD DS: Diagnosis Problem List Completed Was Problem List Reviewed/Reconciled?: Yes Hospital Course Hospital Course Hospital course: Patient is a 53-year-old male with a past medical history significant for alcoholic cirrhosis with ascites presenting today with a chief complaint of shortness of breath x 1 day. On imaging it was found that he had significant right pleural effusion and thoracentesis was done which drained an additional 4 L of fluid. The procedure was complicated by a right pleural effusion and a right sided chest tube was subsequently placed and connected to underwater seal. At the time of the encounter the underwater seal was filled with approximately 1200 cc of serosanguineous fluid. Patient was admitted for treatment and management of right-sided pneumothorax. For patient's right-sided pneumothorax, he was treated with chest tube connected to underwater seal. Pleural fluid analysis was done which showed an exudative effusion, cytology showed no malignant cells with numerous neutrophils. Pleural fluid culture grew GPC, most likely a contaminant from port sample collection. For the first week he was attached to low continuous suction and had output varying between 1 to 2 L/day from the chest tube. Once his output decreased, suction was discontinued and patient kept on under waterseal. However every time we clamped the chest tube, he would develop worsening pneumothorax and on 1 occasion tension pneumothorax requiring resumption of suction. Eventually on 07/04/2024 after 24 hours of keeping the chest tube clamped, patient had complete resolution of pneumothorax. Chest tube was removed on 07/05 with no complications. Repeat imaging was done 2 hours after removal of chest tube which showed some minimal trapped lung at right base and within lateral effusion. With regards to patient's decompensated alcoholic cirrhosis with ascites, he was treated with fluid restriction, spironolactone 50 Mg p.o. daily and midodrine 10 Mg p.o. 3 times daily. Autoimmune screen and hepatitis panel were negative, most likely etiology alcoholic cirrhosis. Patient was advised to follow-up outpatient for referral to gastroenterology. He was also advised on complete alcohol cessation to be eligible for transplant evaluation. For patient's umbilical hernia, he was advised to follow-up outpatient for repair. All patient's labs are now returning to his baseline. Patient is now clinically stable and fit for discharge to home. Discharge diagnosis: 1. Iatrogenic right pneumothorax with right-sided pleural effusion?resolved 2. Status post right chest tube removal on 07/05/2024 3. Decompensated alcoholic cirrhosis with ascites, thrombocytopenia and coagulopathy 4. Ascites s/p large-volume paracentesis 06/21/2024 5. Hypoalbuminemia 6. Hyperbilirubinemia?resolved 7. Umbilical hernia?reducible Discharge plan: ? You have been started on medication lactulose. Only take as needed to achieve at least 2 bowel movements per day. ? You have been started on a lidocaine patch. Use once a day as needed if you have pain at the sites of your chest tube. ? You have been started medication midodrine. Take 1 tablet 3 times a day. ? You have been started on medication spironolactone to decrease your body fluid and help dcreasing the reaccumulation of the fluid in your chest or abdomen. - Most importantly you must avoid drinking alcohol is it may worsen your condtion and makes you uneligible for possible future liver transplantation. - Follow up with PCP for referral for liver transplant center ? You will have to restrict your daily liquid intake to 1.5 Litres / 50 ounces per day. This includes water, teas, coffees and soups. ? You will have to follow a low salt diet for the rest of your life. This means no Syriac food or fast food. ? You will have to take your weight daily. If your weight increases by more than 3-5 pounds in 1-2 days, take an extra water pill that day. ? You will have to measure your blood pressure daily. If the top number is less than 100, do not take your blood pressure medications that day. ? Keep a log of your blood pressures to take to your primary doctor - Follow up with radiology as outpatient for as needed paracentesis and thoracentesis. - Follow up with your primary doctor for a referral to a surgeon to repair your umbilical hernia. - Follow up with your primary care physician within 1 week of discharge. If you do not have a primary care physician, please follow up with the [facility] Residents clinic ([phone]) You can come Tomorrow, Friday07/06/2024 at 10:30 AM, with Dr Elizabeth Love ? If you experience any new, worsening or persistent symptoms either call your primary doctor, or dial 911 or present to the emergency department. We are grateful to be able to participate in Mr. Doss' care. We wish him the best. Plan of care discussed with Attending Dr. Marilu Fu MD PGY 1 Disclaimer: This note was dictated by speech recognition. Minor errors in de icer finisher may be present due to voice recognition software. Time Spent with Patient Time attestation: Total time spent providing and/or coordinating discharge services: Time spent: Greater than 30 minutes (43) Exam Vital Signs Temp Pulse Resp BP Pulse Ox O2 Del Method O2 Flow Rate 97.1 F 87 18 100/67 93 L Room Air 3 07/05/24 12:07/05/24 12:07/05/24 12:07/05/24 12:07/05/24 12:07/05/24 12:06/29/24 23:57 Narrative Exam Constitutional Alert, oriented x 3 and comfortable. Middle-age male, scleral icterus?improved HEENT Vision grossly intact. Patent nares. Trachea midline Respiratory Chest normal on inspection, bandage over site of removed chest tube, air entry improved in all zones. Cardiovascular S1 and S2 audible, RRR. No murmurs carotid bruit. No gross JVD. Abdominal Soft, non-tender, umbilicus everted, reducible. BS +. Genitourinary No bladder tenderness, no flank pain. Normal to palpation Musculoskeletal Extremities tone within normal limits. No LE edema. Neurological CN II - XII grossly intact. Extremity motor and sensation grossly intact. Negative for asterixis Skin Warm, dry and intact. No apparent lesions. Psychiatric Patient has good affect, is cooperative Discharge Plan Plan Patient Disposition: HOME (Self Care) Patient condition on transfer: Stable and Benefits outweigh risks Care Plan Goals: ? You have been started on medication lactulose. Only take as needed to achieve at least 2 bowel movements per day. ? You have been started on a lidocaine patch. Use once a day as needed if you have pain at the sites of your chest tube. ? You have been started medication midodrine. Take 1 tablet 3 times a day. ? You have been started on medication spironolactone to decrease your body fluid and help dcreasing the reaccumulation of the fluid in your chest or abdomen. - Most importantly you must avoid drinking alcohol is it may worsen your condtion and makes you uneligible for possible future liver transplantation. - Follow up with PCP for referral for liver transplant center ? You will have to restrict your daily liquid intake to 1.5 Litres / 50 ounces per day. This includes water, teas, coffees and soups. ? You will have to follow a low salt diet for the rest of your life. This means no Syri[place] food or fast food. ? You will have to take your weight daily. If your weight increases by more than 3-5 pounds in 1-2 days, take an extra water pill that day. ? You will have to measure your blood pressure daily. If the top number is less than 100, do not take your blood pressure medications that day. ? Keep a log of your blood pressures to take to your primary doctor - Follow up with radiology as outpatient for as needed paracentesis and thoracentesis. - Follow up with your primary doctor for a referral to a surgeon to repair your umbilical hernia. - Follow up with your primary care physician within 1 week of discharge. If you do not have a primary care physician, please follow up with the [facility] Residents clinic ([phone]) You can come Tomorrow, Friday07/06/2024 at 10:30 AM, with Dr Elizabeth Love ? If you experience any new, worsening or persistent symptoms either call your primary doctor, or dial 911 or present to the emergency department. ? Soriano comenzado a liam lactulosa. T?olivia solo cuando sea necesario para lograr al menos dos evacuaciones al d?a. ? Soriano comenzado a liam un parche de lidoca?na. ?selo alisa vez al d?a seg?n sea necesario si tiene dolor en las zonas donde se coloca el tubo tor?cico. ? Soriano comenzado a liam midodrina. [place] 1 tableta 3 veces al d?a. ? Soriano comenzado a liam espironolactona para disminuir la retenci?n de l?quidos y ayudar a disminuir la reacumulaci?n de l?quidos en el pecho o el abdomen. - Es fundamental que evite el consumo de alcohol, ya que puede empeorar castillo condici?n y hacer que no sea elegible para un posible trasplante de h?gado en el futuro. - Consulte con castillo m?dico de cabecera para que lo derive a un centro de trasplante de h?gado. ? Deber? restringir castillo consumo diario de l?quidos a 1.5 litros (50 onzas) al d?a. [place] incluye agua, t?s, caf?s y sopas. ? Deber? seguir alisa dieta baja en azar de por susanne. [place] significa evitar la comida china y la comida r?pida. ? Deber? pesarse diariamente. Si aumenta de peso m?s de 1,5 a 2,3 kg en 1 o 2 d?as, tome un diur?gerard adicional joel d?a. ? Deber? medirse la presi?n arterial diariamente. Si la cifra superior es linda de 100, no tome zohreh medicamentos para la presi?n arterial joel d?a. ? Lleve un registro de castillo presi?n arterial para llev?rselo a castillo m?dico de cabecera. - Realice un seguimiento con radiolog?a sidra paciente ambulatorio para realizarle paracentesis y toracocentesis seg?n sea necesario. - Realice un seguimiento con castillo m?dico de cabecera para que le derive a un cirujano para reparar castillo hernia umbilical. - Realice un seguimiento con castillo m?dico de cabecera dentro de la semana posterior al marisa. Si no tiene un m?dico de cabecera, comun?quese con la cl?[facility] de residentes de [facility] ([phone]). Puede venir ma?ajith, rashaun 06/07/2024 a las 10:30 a. m., con el Dr. Elizabeth Love. ? Si experimenta alg?n s?ntoma nuevo, que empeora o persiste, llame a castillo m?dico de cabecera, jo-ann el 911 o acuda al servicio de urgencias. Prescriptions/Referrals Prescriptions/Med Rec: New spironolactone 50 mg tablet 50 mg PO QDAY 30 Days Qty: 30 2RF lactulose 10 gram/15 mL solution 10 g PO QDAY MDD 120 grams PRN (Reason: constipation) 30 Days Qty: 1200 0RF Rx Instructions: Take as necessary to achieve at least 2 bowel movements per day midodrine 10 mg tablet 10 mg PO TID 14 Days Qty: 42 0RF Rx Instructions: do not give last dose of day after 6PM or within 4 hrs of bedtime (DME) blood pressure monitor [Blood Pressure Kit] Kit See Rx Instructions .Route Qty: 1 0RF Rx Instructions: As directed Discontinued furosemide 40 mg Tablet 40 mg PO QDAY Referrals: Shahzad Francois MD [Physician] - No Primary/Family,Physician [Primary Care Provider] - Shawn Fu MD [Resident] - Patient/Caregiver Discharge Instructions Discharge Activity: activity as tolerated Education Materials: Spironolactone Oral Tablet 50 mg, Chest Tubes, Pneumothorax (Collapsed Lung), How a Hernia Develops, ED Ascites, ED Cirrhosis, ED Hernia (Adult) Print Language: Arabic Stand Alone Forms: [facility] Award Info., Patient Portal Info Letter Discharge Order Discharge Orders: Discharge (Routine); Ordered 07/05/24 Ordered By: Elizabeth Love Quality Discharge Quality Measures VTE prophylaxis Attestestation MD Attestation I have examined the patient, reviewed labs and imaging findings, discussed the case with the resident(s), and reviewed entered orders. I agree with the plan of care as outlined in this note. Time Spent: [address] Marilu MD
--- NOTE | 2024-07-05 14:00 | XR_ITS ---
Examination: AP chest single view TECHNIQUE: AP portable upright chest single view Date and time: July 05, 2024 1404 hours Comparison July 05, 2024 0616 hours INDICATIONS: History right pneumothorax post chest tube placement, removal chest tube today FINDINGS: Right chest tube no longer identified Atelectasis in the right lower lung zone No pneumothorax noted IMPRESSION: No pneumothoraces noted
--- NOTE | 2024-07-05 16:10 | PD.PUPROG ---
Documentation for date of: 07/05/24 Subjective Subjective Interval history: Mr. Doss denies any acute complaints. Sitting up having lunch at time of exam Critical Care Note Critical care time (min.): 0 Exam Vital Signs Temp Pulse Resp BP Pulse Ox O2 Del Method O2 Flow Rate 97.1 F 85 18 104/66 93 L Room Air 3 07/05/24 12:00 07/05/24 13:39 07/05/24 12:00 07/05/24 13:39 07/05/24 12:00 07/05/24 12:00 06/29/24 23:57 Narrative Exam GENERAL: Patient appears to be in no acute distress HEENT: No facial asymmetry, PULMONARY: non labored CARDIAC: sinus GASTROINTESTINAL: Abdomen is soft EXTREMITIES: no edema SKIN: Warm and dry without NEURO: mental status is normal - grossly non focal Physical Exam Completion Physical Exam Complete?: Yes 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 07/05/24 05:04 07/05/24 05:04 Labs: Laboratory Results - last 24 hr 07/05/24 05:04 WBC 6.2 RBC 3.55 L Hgb 12.5 L Hct 36.0 L MCV 101 H MCH 35.2 H MCHC 34.7 RDW Std Deviation 53.4 H Plt Count 96 L D Neut % (Auto) 61 Lymph % (Auto) 24 [place] % (Auto) 9 Eos % (Auto) 5 Baso % (Auto) 1 Neut # (Auto) 3.8 Lymph # (Auto) 1.5 [place] # (Auto) 0.5 Eos # (Auto) 0.3 Baso # (Auto) 0.1 Immature Gran # (Auto) 0.03 H Absolute Nucleated RBC 0.00 Immature Gran % 1 H Nucleated RBC % 0 Sodium 139 Potassium 4.6 Chloride 107 Carbon Dioxide 25.5 Anion Gap 7 BUN 14 Creatinine 0.6 Estim Creat Clear Calc 134.6 eGFR > 60 BUN/Creatinine Ratio 23 H Glucose 100 Calculated Osmolality 278 Calcium 8.3 Corrected Calcium 9.1 Phosphorus 4.2 Magnesium 1.9 Total Bilirubin 1.2 AST 27 ALT 27 Alkaline Phosphatase 85 Total Protein 5.4 L Albumin 3.0 L Globulin 2.4 Albumin/Globulin Ratio 1.3 Assessment & Plan Additional Plan Additional Plan: Post procedure PTX Hepatic hydrothorax Chest tube clamped > 24 hours No obvious re-collapse of lung Chest tube removed without incident - repeat cxr 2hrs later essentially same However, 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 He should have thoracentesis as needed ultimately transplant is the most effective treatment. Provider Notation Provider Notation: Although this document has been carefully reviewed, there may still be some phonetic and other typographical errors. These errors are purely grammatical due to imperfections in the software program and should not be construed in any way to compromise the substance of the patient's medical care during this visit. Thank you for the opportunity and privilege in assisting you with this patient's care and management.
[2024-07-06 13:19] LABS: Cocci Serology, IgG Negative (Negative)
== END 2024-07-05 16:45 | disposition home or self-care (01) | DRG 143 ==
LOC: SERX 15:39 → SERHOLD 16:27 → S3NX 21:38 → S2NX 06-30 04:35 → S3NX 07-03 00:19
PROVIDERS: Registered Nurse General Practice; Student in an Organized Health Care Education/Training Program; Admitting Provider Student in an Organized Health Care Education/Training Program; Emergency Provider Emergency Medicine; Visit Provider Student in an Organized Health Care Education/Training Program
DX: J95.811 Postprocedural pneumothorax (principal); K70.31 Alcoholic cirrhosis of liver with ascites; J90 Pleural effusion, not elsewhere classified; K42.9 Umbilical hernia without obstruction or gangrene; E88.09 Other disorders of plasma-protein metabolism, not elsewhere classified; D69.6 Thrombocytopenia, unspecified; D68.9 Coagulation defect, unspecified; F10.10 Alcohol abuse, uncomplicated; E86.9 Volume depletion, unspecified; J91.8 Pleural effusion in other conditions classified elsewhere; Z79.899 Other long term (current) drug therapy
CPT/HCPCS: 36415; 71045; 71250; 74176; 80053; 80061; 80074; 80307; 80320; 82103; 82140; 82150; 82390; 82525; 82784; 82945; 82947; 83036; 83615; 83690; 83735; 84100; 84157; 84300; 84443; 85025; 85610; 85730; 86038; 86235; 86255; 86331; 86376; 86635; 87070; 87075; 87077; 87186; 87205; 89051; 93225; 93306; 94664; 96365; 96367; 96375; 99285; C1729; J1938; J2270; J3010; J3490; J7030; J7040; P9047; A9270; G0480

== ENCOUNTER 2024-07-06 10:32 | Outpatient (AMB) | payer MEDICAID, SELFPAY ==
--- NOTE | 2024-07-06 11:08 | PD.RESCLINIC ---
Vital Signs 07/06/24 11:12 Height 1.73 m Height Method Stated Weight 75.466 kg Weight Measurement Method Standing Scale BMI 25.2 BP 115/73 Blood Pressure Source Automatic Cuff Blood Pressure Location Right Upper Arm Position Sitting Respiration 18 Pulse 91 Pulse Source Monitor Temp 97.2 F Temp Source Temporal Artery Scan Pulse Oximetry (%) 93 L Oxygen Delivery Method Room Air Allergies/Meds Allergies & Medications Allergies No Known Allergies Allergy (Verified 07/06/24 11:13) Medication Reconciliation lactulose 10 gram/15 mL oral solution 10 g (15 mL) PO QDAY PRN constipation 1 month #1,200 mL 07/03/24 [Rx Confirmed 07/06/24] midodrine 10 mg tablet 10 mg PO TID 2 weeks #42 tabs 07/03/24 [Rx Confirmed 07/06/24] spironolactone 50 mg tablet 50 mg PO QDAY 1 month #30 tabs 07/03/24 [Rx Confirmed 07/06/24] blood pressure monitor (Blood Pressure Kit) #1 ea 07/05/24 [Rx Confirmed 07/06/24] MA Intake Visit Data Collection New Patient or Established: Established Patient (seen at [facility] within 3 years) Seen by Clinical Staff ONLY (RN/MA): No Pain Present Currently: No Pain scale:: 0 Pain Scale Used: Gonzales-Lopez/Numerical Cashier Wrapper Required: No PCP or OBGYN visit in last 3 months: No Hx Now: No Do You Feel Safe at Home: Yes Authorities Contacted: N/A Smoking Status Smoking Status: Never smoker Immunization / Flu Flu Vaccine in the Last 12 Months: No Flu Vaccine Exclusion Criteria: No Exclusion Criteria Past Medical History Past Medical History CARDIAC: Positive Cardiac Disorders, Edema and Hypertension; Negative Congestive Heart Failure RESPIRATORY: Negative Chronic Obstructive Pulmonary Disease (COPD) or Asthma GASTROINTESTINAL: Positive Cirrhosis GENITOURINARY: Negative Renal Disease ENDOCRINE: Negative Diabetes Mellitus Type 1 or Diabetes Mellitus Type 2 HEMATOLOGIC: Negative Sickle Cell Disease PSYCHO/SOCIAL: Positive Recreational Drug Use OTHER HISTORY: Positive Hospitalization; Negative Falls, Blood Transfusions or Anesthesia Reactions Family History FAMILY HISTORY: Negative Family Neurologic Problems, Family Psychiatric Problems, Family Respiratory Disorders, Family Cardiac Disorders, Family Gastrointestinal Problems, Family Cancer, Family Surgery or Family Anesthesia Reaction Social History SMOKING STATUS: Smoking status: Never smoker ALCOHOL: Alcohol Intake: Former ALCOHOL FREQUENCY: Alcohol Intake Frequency: 3 or More Drinks per Day HOUSING: Housing: House LIVES WITH: Lives With: Alone 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 Patient Portal Questionaires Social History Living Situation History Housing: House Housing Other:: Pt lives alone Tobacco History Smoking Status: Never smoker Alcohol History Alcohol Intake: Former Alcohol Intake Frequency: 3 or More Drinks per Day Domestic Abuse History Do You Feel Safe at Home: Yes Review of Systems Report any current symptoms Only answer those that you have currently: Past Medical History Past Medical History Have you ever been diagnosed with any of the following: Cardiology Problems Congestive Heart Failure: No Edema: Yes Hypertension: Yes Respiratory Problems Chronic Obstructive Pulmonary Disease (COPD): No Asthma: No Stomache/Intestinal Problems Cirrhosis: Yes Genital/Urinary Problems Renal Disease: No Endocrine Problems Diabetes Mellitus Type 1: No Diabetes Mellitus Type 2: No Blood Problems Sickle Cell Disease: No Psychologic Problems Recreational Drug Use: Yes Other Problems Hospitalization: Yes Falls: No Blood Transfusions: No Anesthesia Reactions: No History of Present Illness HPI Narrative A 53-year-old male patient with past medical history of alcohol use disorder, alcoholic cirrhosis was recently diagnosed, was admitted to the hospital 15 days before admission secondary to ascites and pleural effusion s/p drainage which resulted in iatrogenic pneumothorax. Patient was discharged from the hospital after prolonged admission secondary to complex pneumothorax and pleural effusion. Chest tube was inserted for 14 days as the patient continued to drain pleural fluid and also unresolving pneumothorax. Eventually his pneumothorax has resolved and there was minimal pleural output. Chest tube was removed and the patient was discharged and was recommended to follow-up with us to monitor for any complications. Today, patient denied any shortness of breath, cough, chest tightness, fever, chills, or any abdominal distention or confusion. Patient was discharged on spironolactone 50 mg daily, midodrine 3 times daily, lactulose as needed, and was instructed to decrease salt intake and fluid restriction. Review of Systems Review of Systems Systems Reviewed: All systems reviewed, normal except as documented Objective/Exam Narrative Physical exam: GEN: AOx3, able to speak full sentences HEENT: NC/AC, PERRLA, oral mucosa moist, neck supple CVS: RRR, S1-S2 present, no murmurs appreciated RESP: Decreased air entry on the right middle and lower lung field, left lung good air entry with no added sounds GI: soft,non distended, non tender, NBS MSK: able to move all 4 limbs, no lower extremity edema SKIN: Chest tube wound healed, no visible leak, or drainage. WIND ENERGY PROJECT MANAGER: CN II-XII and Sensation grossly intact. Assessment & Plan Diagnosis / Problem List (1) Cirrhosis of liver with ascites: Status: Acute Qualifiers: Hepatic cirrhosis type: alcoholic cirrhosis Qualified Code(s): K70.31 - Alcoholic cirrhosis of liver with ascites Assessment & Plan: Summary:A 53-year-old male patient with past medical history of alcohol use disorder, alcoholic cirrhosis was recently diagnosed, was admitted to the hospital 15 days before admission secondary to ascites and pleural effusion s/p drainage which resulted in iatrogenic pneumothorax. Patient came for follow-up after being discharged from the hospital. Plan: ? Referral to GI specialist Dr. Villalpando, for further management and possible screening EGD ? Patient was counseled in regard of alcohol abstinence, was instructed to stay at least sober to prevent any further complications or worsening of his liver functions ? Patient was counseled regarding strict use of his medications including spironolactone, and monitoring his blood pressure. (2) Pleural effusion: Status: Acute Assessment & Plan: On examination there was decreased on the right middle and lower lung field air entry no added sounds. Plan: ? Repeat chest x-ray after 1 week ? In case of worsening of your symptoms please return to the ED as soon as possiblea (3) Pneumothorax: Status: Acute Qualifiers: Pneumothorax type: postprocedural Qualified Code(s): J95.811 - Postprocedural pneumothorax Plan: ? Repeat chest x-ray as above Orders: Orders XR chest 2V 1 Week J93.9 - Pneumothorax, unspecified Referrals Gastroenterology K74.60 - Unspecified cirrhosis of liver, R18.8 - Other ascites Office Procedures [facility] Level of Care Nursing/Assessment Patient Status: Established Patient Nursing Assessment/Reassessment: Medication Reconciliation, Update PMH in EMR and Vital Signs Coordination of Care: Complex Care and Chronic Disease 1-5, Consent,records obtained, informed consent, Education Simp Pt/Fam and Staff clarify orders Established Patient Charge Established Patient Point Assignment: 85 Established Patient Point Charge: Level 3 (80-115)
[2024-07-06 11:12] VITALS: BP 115/73; PULSE 91; RESP 18; TEMP 36.2; O2SAT 93; BMI 25.2
== END 2024-07-06 11:59 | disposition home or self-care (01) ==
LOC: HODAHC 10:32
PROVIDERS: Supervising Provider Internal Medicine; Visit Provider Student in an Organized Health Care Education/Training Program
DX: K70.31 Alcoholic cirrhosis of liver with ascites (principal); J95.811 Postprocedural pneumothorax
CPT/HCPCS: 99213; G0463

== ENCOUNTER → 2024-07-09 | Outpatient (CLI) | payer MEDICAID, SELFPAY ==
--- NOTE | 2024-07-09 | XR_ITS ---
Examination: PA lateral chest 2 views TECHNIQUE: Upright PA lateral chest 2 views Date and time: July 09, 2024 at 1243 hours Comparison July 05, 2024 INDICATIONS: History recurrent right pleural effusions FINDINGS: Atelectasis versus pneumonia right base Mild enlargement cardiac contour Mild to moderate right pleural fluid IMPRESSION: Atelectasis versus pneumonia right base Mild to moderate right pleural fluid
== END | disposition home or self-care (01) ==
LOC: CDIM 11:41
PROVIDERS: PCP Student in an Organized Health Care Education/Training Program; Referring Provider Student in an Organized Health Care Education/Training Program; Visit Provider Student in an Organized Health Care Education/Training Program
DX: R91.8 Other nonspecific abnormal finding of lung field (principal)
CPT/HCPCS: 71046

== ENCOUNTER 2024-07-13 10:28 | Outpatient (AMB) | payer MEDICAID, SELFPAY ==
[2024-07-13 10:56] VITALS: BP 106/67; PULSE 96; RESP 18; TEMP 36.6; O2SAT 94; BMI 26.1
--- NOTE | 2024-07-13 10:56 | PD.RESCLINIC ---
Vital Signs 07/13/24 10:56 Height 1.73 m Height Method Stated Weight 78.131 kg Weight Measurement Method Standing Scale BMI 26.1 BP 106/67 Blood Pressure Source Automatic Cuff Blood Pressure Location Right Upper Arm Position Sitting Respiration 18 Pulse 96 Pulse Source Monitor Temp 97.8 F Temp Source Temporal Artery Scan Pulse Oximetry (%) 94 L Oxygen Delivery Method Room Air Allergies/Meds Allergies & Medications Allergies No Known Allergies Allergy (Verified 07/13/24 10:57) Medication Reconciliation lactulose 10 gram/15 mL oral solution 10 g (15 mL) PO QDAY PRN constipation 1 month #1,200 mL 07/03/24 [Rx Confirmed 07/13/24] blood pressure monitor (Blood Pressure Kit) #1 ea 07/05/24 [Rx Confirmed 07/13/24] spironolactone 50 mg tablet 100 mg (2 x 50 mg) PO QDAY 1 month #60 tabs 07/13/24 [Rx] MA Intake Visit Data Collection New Patient or Established: Established Patient (seen at [facility] within 3 years) Seen by Clinical Staff ONLY (RN/MA): No Pain Present Currently: No Pain scale:: 0 Pain Scale Used: Gonzales-Lopez/Numerical Domestic Travel Consultant Required: No PCP or OBGYN visit in last 3 months: No Hx Now: No Do You Feel Safe at Home: Yes Authorities Contacted: N/A Smoking Status Smoking Status: Never smoker Immunization / Flu Flu Vaccine in the Last 12 Months: No Flu Vaccine Exclusion Criteria: No Exclusion Criteria Past Medical History Past Medical History CARDIAC: Positive Cardiac Disorders, Edema and Hypertension; Negative Congestive Heart Failure RESPIRATORY: Negative Chronic Obstructive Pulmonary Disease (COPD) or Asthma GASTROINTESTINAL: Positive Cirrhosis GENITOURINARY: Negative Renal Disease ENDOCRINE: Negative Diabetes Mellitus Type 1 or Diabetes Mellitus Type 2 HEMATOLOGIC: Negative Sickle Cell Disease PSYCHO/SOCIAL: Positive Recreational Drug Use OTHER HISTORY: Positive Hospitalization; Negative Falls, Blood Transfusions or Anesthesia Reactions Family History FAMILY HISTORY: Negative Family Neurologic Problems, Family Psychiatric Problems, Family Respiratory Disorders, Family Cardiac Disorders, Family Gastrointestinal Problems, Family Cancer, Family Surgery or Family Anesthesia Reaction Social History SMOKING STATUS: Smoking status: Never smoker ALCOHOL: Alcohol Intake: Former ALCOHOL FREQUENCY: Alcohol Intake Frequency: 3 or More Drinks per Day HOUSING: Housing: House LIVES WITH: Lives With: Alone 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 Patient Portal Questionaires Social History Living Situation History Housing: House Housing Other:: Pt lives alone Tobacco History Smoking Status: Never smoker Alcohol History Alcohol Intake: Former Alcohol Intake Frequency: 3 or More Drinks per Day Domestic Abuse History Do You Feel Safe at Home: Yes Review of Systems Report any current symptoms Only answer those that you have currently: Past Medical History Past Medical History Have you ever been diagnosed with any of the following: Cardiology Problems Congestive Heart Failure: No Edema: Yes Hypertension: Yes Respiratory Problems Chronic Obstructive Pulmonary Disease (COPD): No Asthma: No Stomache/Intestinal Problems Cirrhosis: Yes Genital/Urinary Problems Renal Disease: No Endocrine Problems Diabetes Mellitus Type 1: No Diabetes Mellitus Type 2: No Blood Problems Sickle Cell Disease: No Psychologic Problems Recreational Drug Use: Yes Other Problems Hospitalization: Yes Falls: No Blood Transfusions: No Anesthesia Reactions: No History of Present Illness HPI Narrative A 53-year-old male patient with past medical history of alcohol use disorder, alcoholic cirrhosis was recently diagnosed, was admitted to the hospital 15 days before admission secondary to ascites and pleural effusion s/p drainage which resulted in iatrogenic pneumothorax. Patient was discharged from the hospital after prolonged admission secondary to complex pneumothorax and pleural effusion. Chest tube was inserted for 14 days as the patient continued to drain pleural fluid and also unresolving pneumothorax. Eventually his pneumothorax has resolved and there was minimal pleural output. Chest tube was removed and the patient was discharged and was recommended to follow-up with us to monitor for any complications. 07/06/2024, patient denied any shortness of breath, cough, chest tightness, fever, chills, or any abdominal distention or confusion. Patient was discharged on spironolactone 50 mg daily, midodrine 3 times daily, lactulose as needed, and was instructed to decrease salt intake and fluid restriction. 07/13/2024 Patient today came for follow up, denied any SOB or dizziness, he mentioned he has not seen the GI dr grimaldo, his body weight today increased to 78KG from 76Kg. Denied any abdominal distention or LL swelling. Denied drinking alcohol and he reported that he is keeping track of his bodyweight and his symptoms. Review of Systems Review of Systems Systems Reviewed: All systems reviewed, normal except as documented Objective/Exam Narrative Physical exam: GEN: AOx3, able to speak full sentences HEENT: NC/AC, Ictric, oral mucosa moist, neck supple CVS: RRR, S1-S2 present, no murmurs appreciated RESP: Decreased air entry on the right middle and lower lung field, left lung good air entry with no added sounds GI: soft,non distended, non tender, NBS MSK: able to move all 4 limbs, no lower extremity edema SKIN:warm and dry. Chest tube wound completely healed SALESFORCE SPECIALIST: CN II-XII and Sensation grossly intact. Assessment & Plan Diagnosis / Problem List (1) Pleural effusion: Status: Acute Assessment & Plan: 07/09/2024 On examination there was decreased on the right middle and lower lung field air entry no added sounds. 07/13/2024 Repeat CXR from June showed mild to moderate re-accumulation of pleural fluid. however, patient asymptomatic, denied any cough SOB, fever or chills Plan: 07/06/2024 ? Repeat chest x-ray after 1 week ? In case of worsening of your symptoms please return to the ED as soon as possiblea 07/13/2024 ? Repeat chest x-ray after 2 week - Follwo up after 2 weeks - Increase Spronolactone to 100mg PO Qam, Patient was instructed to go back to the original dose if he start to feel dizzy or unsteady or if his SBP become below 100mmHg ? In case of worsening of your symptoms please return to the ED as soon as possible (2) Pneumothorax: Status: Acute Qualifiers: Pneumothorax type: postprocedural Qualified Code(s): J95.811 - Postprocedural pneumothorax Plan: ? Repeat chest x-ray as above (3) Cirrhosis of liver with ascites: Status: Acute Qualifiers: Hepatic cirrhosis type: alcoholic cirrhosis Qualified Code(s): K70.31 - Alcoholic cirrhosis of liver with ascites Assessment & Plan: Summary:A 53-year-old male patient with past medical history of alcohol use disorder, alcoholic cirrhosis was recently diagnosed, was admitted to the hospital 15 days before admission secondary to ascites and pleural effusion s/p drainage which resulted in iatrogenic pneumothorax. Patient came for follow-up after being discharged from the hospital. 07/13/2024 Patient has not seen the GI as of today, instructed on how important to see the GI specialist Dr Grimaldo and that he has to call to bookj an appointment. His daily bodyweight has increaesed to 78.1 from 75.4 last visit Plan: 07/06/2024 ? Referral to GI specialist Dr. Grimaldo, for further management and possible screening EGD ? Patient was counseled in regard of alcohol abstinence, was instructed to stay at least sober to prevent any further complications or worsening of his liver functions ? Patient was counseled regarding strict use of his medications including spironolactone, and monitoring his blood pressure. 07/13/2024 - Follow up with the GI specialist - increase the dose of spironolactone to 100mg PO QAm PO, go back to the 50mg dose if you feel dizzy, unsteady or have SBP less than 100mmHg - Daily body weight - Wont start him on lasix as of now because no lower limb edema, mild increase on his ascites and soft BP today 106/67. Orders: Orders XR chest 2V 2 Weeks J90 - Pleural effusion, not elsewhere classified, J95.811 - Postprocedural pneumothorax Office Procedures [facility] Level of Care Nursing/Assessment Patient Status: Established Patient Nursing Assessment/Reassessment: Medication Reconciliation, Update PMH in EMR and Vital Signs Coordination of Care: Complex Care and Chronic Disease 1-5, Consent,records obtained, informed consent, Education Simp Pt/Fam and Staff clarify orders Established Patient Charge Established Patient Point Assignment: 85 Established Patient Point Charge: EP Level 3 (80-115)
== END 2024-07-13 11:46 | disposition home or self-care (01) ==
LOC: HODAHC 10:28
PROVIDERS: Supervising Provider Internal Medicine; Visit Provider Student in an Organized Health Care Education/Training Program
DX: J90 Pleural effusion, not elsewhere classified (principal); K70.31 Alcoholic cirrhosis of liver with ascites; J95.811 Postprocedural pneumothorax
CPT/HCPCS: 99213; G0463

== ENCOUNTER → 2024-07-26 | Outpatient (CLI) | payer MEDICAID, SELFPAY ==
--- NOTE | 2024-07-26 | XR_ITS ---
Examination: PA lateral chest 2 views TECHNIQUE: Upright PA lateral chest 2 views Date and time: July 26, 2024 1154 hours INDICATIONS: Difficulty breathing this week. FINDINGS: Moderate right pleural fluid Atelectasis versus pneumonia right lung Mild prominence left ventricle IMPRESSION: Moderate right pleural fluid Atelectasis versus pneumonia right lung, clinical correlation advised
== END | disposition home or self-care (01) ==
PROVIDERS: PCP Student in an Organized Health Care Education/Training Program; Referring Provider Student in an Organized Health Care Education/Training Program; Visit Provider Student in an Organized Health Care Education/Training Program
DX: R91.8 Other nonspecific abnormal finding of lung field (principal)
CPT/HCPCS: 71046

== ENCOUNTER 2024-07-27 10:31 | Outpatient (AMB) | payer MEDICAID, SELFPAY ==
--- NOTE | 2024-07-27 11:20 | PD.RESCLINIC ---
Allergies/Meds Allergies & Medications Allergies No Known Allergies Allergy (Verified 08/05/24 08:32) Medication Reconciliation blood pressure monitor (Blood Pressure Kit) #1 ea 07/05/24 [Rx Confirmed 07/13/24] lactulose 10 gram/15 mL oral solution 10 g (15 mL) PO QDAY PRN constipation #473 mL 07/27/24 [Rx Confirmed 08/05/24] lactulose 10 gram/15 mL oral solution 10 g (15 mL) PO QDAY PRN constipation 1 month #1,200 mL 07/27/24 [Rx Confirmed 08/05/24] phenylephrine HCl 0.25 % rectal suppository (Preparation H (pe)) 1 supp NM QHS PRN hemorrhoids #12 ea 07/27/24 [Rx Confirmed 08/05/24] spironolactone 100 mg tablet 100 mg PO QDAY #30 tabs 07/27/24 [Rx Confirmed 08/05/24] spironolactone 50 mg tablet 50 mg PO QDAY 1 month #30 tabs 08/01/24 [Rx] MA Intake Visit Data Collection New Patient or Established: Established Patient (seen at [facility] within 3 years) Seen by Clinical Staff ONLY (RN/MA): No Pain Present Currently: No Pain scale:: 0 Pain Scale Used: Gonzales-Lopez/Numerical Analytical Chemist Required: No PCP or OBGYN visit in last 3 months: Yes Hx Now: No Do You Feel Safe at Home: Yes Authorities Contacted: N/A Smoking Status Smoking Status: Never smoker Immunization / Flu Flu Vaccine in the Last 12 Months: Yes Flu Vaccine Exclusion Criteria: Already Received Past Medical History Past Medical History CARDIAC: Positive Cardiac Disorders, Edema and Hypertension; Negative Congestive Heart Failure RESPIRATORY: Negative Chronic Obstructive Pulmonary Disease (COPD) or Asthma GASTROINTESTINAL: Positive Cirrhosis GENITOURINARY: Negative Renal Disease ENDOCRINE: Negative Diabetes Mellitus Type 1 or Diabetes Mellitus Type 2 HEMATOLOGIC: Negative Sickle Cell Disease PSYCHO/SOCIAL: Positive Recreational Drug Use OTHER HISTORY: Positive Hospitalization; Negative Falls, Blood Transfusions or Anesthesia Reactions Family History FAMILY HISTORY: Negative Family Neurologic Problems, Family Psychiatric Problems, Family Respiratory Disorders, Family Cardiac Disorders, Family Gastrointestinal Problems, Family Cancer, Family Surgery or Family Anesthesia Reaction Social History SMOKING STATUS: Smoking status: Never smoker ALCOHOL: Alcohol Intake: Former ALCOHOL FREQUENCY: Alcohol Intake Frequency: 3 or More Drinks per Day HOUSING: Housing: House LIVES WITH: Lives With: Alone 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 Patient Portal Questionaires Social History Living Situation History Housing: House Housing Other:: Pt lives alone Tobacco History Smoking Status: Never smoker Alcohol History Alcohol Intake: Former Alcohol Intake Frequency: 3 or More Drinks per Day Domestic Abuse History Do You Feel Safe at Home: Yes Review of Systems Report any current symptoms Only answer those that you have currently: Past Medical History Past Medical History Have you ever been diagnosed with any of the following: Cardiology Problems Congestive Heart Failure: No Edema: Yes Hypertension: Yes Respiratory Problems Chronic Obstructive Pulmonary Disease (COPD): No Asthma: No Stomache/Intestinal Problems Cirrhosis: Yes Genital/Urinary Problems Renal Disease: No Endocrine Problems Diabetes Mellitus Type 1: No Diabetes Mellitus Type 2: No Blood Problems Sickle Cell Disease: No Psychologic Problems Recreational Drug Use: Yes Other Problems Hospitalization: Yes Falls: No Blood Transfusions: No Anesthesia Reactions: No History of Present Illness HPI Narrative A 53-year-old male patient with past medical history of alcohol use disorder, alcoholic cirrhosis was recently diagnosed, was admitted to the hospital 15 days before admission secondary to ascites and pleural effusion s/p drainage which resulted in iatrogenic pneumothorax. Patient was discharged from the hospital after prolonged admission secondary to complex pneumothorax and pleural effusion. Chest tube was inserted for 14 days as the patient continued to drain pleural fluid and also unresolving pneumothorax. Eventually his pneumothorax has resolved and there was minimal pleural output. Chest tube was removed and the patient was discharged and was recommended to follow-up with us to monitor for any complications. 07/06/2024, patient denied any shortness of breath, cough, chest tightness, fever, chills, or any abdominal distention or confusion. Patient was discharged on spironolactone 50 mg daily, midodrine 3 times daily, lactulose as needed, and was instructed to decrease salt intake and fluid restriction. 07/13/2024 Patient today came for follow up, denied any SOB or dizziness, he mentioned he has not seen the GI dr grimaldo, his body weight today increased to 78KG from 76Kg. Denied any abdominal distention or LL swelling. Denied drinking alcohol and he reported that he is keeping track of his bodyweight and his symptoms. 07/27/2024 Patient came for follow up visit after he did an xray of the chest on the 07/26/2024, His x-ray showed significant improvement since his previous x-ray on the June. Patient denied any new symptoms. Review of Systems Review of Systems Systems Reviewed: All systems reviewed, normal except as documented Objective/Exam Narrative Physical exam: GEN: AOx3, able to speak full sentences HEENT: NC/AC, Ictric, oral mucosa moist, neck supple CVS: RRR, S1-S2 present, no murmurs appreciated RESP: Decreased air entry on the right middle and lower lung field, left lung good air entry with no added sounds GI: soft,non distended, non tender, NBS MSK: able to move all 4 limbs, no lower extremity edema SKIN:warm and dry. Chest tube wound completely healed ADVISORY SOFTWARE ENGINEER: CN II-XII and Sensation grossly intact. Assessment & Plan Diagnosis / Problem List (1) Cirrhosis of liver with ascites: Status: Acute Qualifiers: Hepatic cirrhosis type: alcoholic cirrhosis Qualified Code(s): K70.31 - Alcoholic cirrhosis of liver with ascites Assessment & Plan: 07/27/2024 Patient has history of alcohol use disorder, found to have cirrhosis recently diagnosed. Chronic viral marker was negative. At this time even though we believe that the patient has most likely alcohol related liver cirrhosis we will refer the patient for GI specialist to rule out any other causes for his liver cirrhosis and also to screen the patient for esophageal varices. Patient denied any abdominal distention at this time and he reported improvement of his abdominal distention. However his body weight increased at this visit by 1 kg will increase his dose of spironolactone not just only for the ascites but also to prevent reaccumulation of the fluid at the pleural space. Plan: 07/27/2024 ? Referral to GI specialist Dr. Grimaldo, pending authorization at this time ? Next visit we will screen the patient for alpha-fetoprotein and alpha-fetoprotein as the last one was in 2018 ? After 6 months from now we will do for the patient regular ultrasound for the liver as a screening for HCC ? Follow-up with the GI recommendations ? Will send for CMP and CBC as follow-up ? At this time the patient is on spironolactone 100 mg p.o. daily will increase the dose to 150 mg p.o. daily. (2) Pleural effusion: Status: Acute Assessment & Plan: 07/09/2024 On examination there was decreased on the right middle and lower lung field air entry no added sounds. 07/13/2024 Repeat CXR from June showed mild to moderate re-accumulation of pleural fluid. however, patient asymptomatic, denied any cough SOB, fever or chills 07/27/2024 patient chest x-ray On 26 July was done and showed moderate pleural effusion, no significant change since last visit. Patient denied any shortness of breath, denied any chest pain fever or chills Plan: 07/06/2024 ? Repeat chest x-ray after 1 week ? In case of worsening of your symptoms please return to the ED as soon as possiblea 07/13/2024 ? Repeat chest x-ray after 2 week - Follwo up after 2 weeks - Increase Spronolactone to 100mg PO Qam, Patient was instructed to go back to the original dose if he start to feel dizzy or unsteady or if his SBP become below 100mmHg ? In case of worsening of your symptoms please return to the ED as soon as possible 07/27/2024 will repeat chest x-ray after 1 month Will increase the dose of spironolactone to 150 mg daily If the patient did not improve and still has persistent pleural effusion we will consider referring the patient to welding manager. (3) Pneumothorax: Status: Acute Qualifiers: Pneumothorax type: postprocedural Qualified Code(s): J95.811 - Postprocedural pneumothorax Plan: ? Repeat chest x-ray as above Orders: Orders CBC 07/27/24 K70.31 - Alcoholic cirrhosis of liver with ascites XR chest 2V 1 Month Comprehensive Metabolic Panel 1 Week K70.31 - Alcoholic cirrhosis of liver with ascites Office Procedures [facility] Level of Care Nursing/Assessment Patient Status: Established Patient Nursing Assessment/Reassessment: Medication Reconciliation, Update PMH in EMR and Vital Signs Coordination of Care: Complex Care and Chronic Disease 1-5, Consent,records obtained, informed consent, Education Simp Pt/Fam and Staff clarify orders Established Patient Charge Established Patient Point Assignment: 85 Established Patient Point Charge: Level 3 (80-115)
== END 2024-07-27 11:20 | disposition home or self-care (01) ==
LOC: HODAHC 10:31
PROVIDERS: Supervising Provider Internal Medicine; Visit Provider Student in an Organized Health Care Education/Training Program
DX: J90 Pleural effusion, not elsewhere classified (principal); K70.31 Alcoholic cirrhosis of liver with ascites
CPT/HCPCS: 99213; G0463

== ENCOUNTER 2024-08-03 10:57 | Outpatient (AMB) | payer MEDICAID, SELFPAY | END 2024-08-03 11:47 | disposition home or self-care (01) | LOC: HODAHC 10:57 | PROVIDERS: PCP Student in an Organized Health Care Education/Training Program; Referring Provider Student in an Organized Health Care Education/Training Program; Supervising Provider Internal Medicine; Visit Provider Student in an Organized Health Care Education/Training Program | DX: K70.31 Alcoholic cirrhosis of liver with ascites (principal); J90 Pleural effusion, not elsewhere classified | CPT/HCPCS: 99212; G0463 ==

== ENCOUNTER → 2024-09-01 | Outpatient (CLI) | payer MEDICAID, SELFPAY ==
--- NOTE | 2024-09-01 10:48 | XR_ITS ---
Examination: PA lateral chest 2 views TECHNIQUE: Upright PA lateral chest 2 views Date and time: September 01, 2024 1056 hours INDICATIONS: Shortness of breath beginning 15 days ago. FINDINGS: Decrease in right pleural fluid Mild to moderate elevation right hemidiaphragm Mild enlargement cardiac contour. Mild vascular congestion IMPRESSION: Decrease in right pleural fluid
== END | disposition home or self-care (01) ==
LOC: CDIM 10:16
PROVIDERS: PCP Student in an Organized Health Care Education/Training Program; Referring Provider Student in an Organized Health Care Education/Training Program; Visit Provider Student in an Organized Health Care Education/Training Program
DX: J90 Pleural effusion, not elsewhere classified (principal)
CPT/HCPCS: 71046

== ENCOUNTER 2024-09-02 13:27 | Outpatient (AMB) | payer MEDICAID, SELFPAY ==
--- NOTE | 2024-08-03 11:04 | PD.RESCLINIC ---
Allergies/Meds Allergies & Medications Allergies No Known Allergies Allergy (Verified 08/05/24 08:32) MA Intake Visit Data Collection New Patient or Established: Established Patient (seen at [facility] within 3 years) Reason for Visit:: TELEMED LAB RESULTS Pain Present Currently: No Nurse College Required: No PCP or OBGYN visit in last 3 months: Yes Date of Last PCP or OBGYN visit: 07/27/24 Do You Feel Safe at Home: Yes Authorities Contacted: N/A Smoking Status Smoking Status: Never smoker For Televisit only Telemed Video/Phone Visit: Yes Verbal consent obtained for Telemed visit?: Yes Verbal Consent witness name: DEZ WESTBROOK/VALERI ZIMMERMAN Telemed Video/Phone visit w/Clinical Staff: 11-20 min Immunization / Flu Flu Vaccine in the Last 12 Months: Yes Flu Vaccine Exclusion Criteria: Already Received Past Medical History Past Medical History CARDIAC: Positive Cardiac Disorders, Edema and Hypertension; Negative Congestive Heart Failure RESPIRATORY: Negative Chronic Obstructive Pulmonary Disease (COPD) or Asthma GASTROINTESTINAL: Positive Cirrhosis GENITOURINARY: Negative Renal Disease ENDOCRINE: Negative Diabetes Mellitus Type 1 or Diabetes Mellitus Type 2 HEMATOLOGIC: Negative Sickle Cell Disease PSYCHO/SOCIAL: Positive Recreational Drug Use OTHER HISTORY: Positive Hospitalization; Negative Falls, Blood Transfusions or Anesthesia Reactions Family History FAMILY HISTORY: Negative Family Neurologic Problems, Family Psychiatric Problems, Family Respiratory Disorders, Family Cardiac Disorders, Family Gastrointestinal Problems, Family Cancer, Family Surgery or Family Anesthesia Reaction Social History SMOKING STATUS: Smoking status: Never smoker ALCOHOL: Alcohol Intake: Former ALCOHOL FREQUENCY: Alcohol Intake Frequency: 3 or More Drinks per Day HOUSING: Housing: House LIVES WITH: Lives With: Alone 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 Patient Portal Questionaires Social History Living Situation History Housing: House Housing Other:: Pt lives alone Tobacco History Smoking Status: Never smoker Alcohol History Alcohol Intake: Former Alcohol Intake Frequency: 3 or More Drinks per Day Domestic Abuse History Do You Feel Safe at Home: Yes Review of Systems Report any current symptoms Only answer those that you have currently: Past Medical History Past Medical History Have you ever been diagnosed with any of the following: Cardiology Problems Congestive Heart Failure: No Edema: Yes Hypertension: Yes Respiratory Problems Chronic Obstructive Pulmonary Disease (COPD): No Asthma: No Stomache/Intestinal Problems Cirrhosis: Yes Genital/Urinary Problems Renal Disease: No Endocrine Problems Diabetes Mellitus Type 1: No Diabetes Mellitus Type 2: No Blood Problems Sickle Cell Disease: No Psychologic Problems Recreational Drug Use: Yes Other Problems Hospitalization: Yes Falls: No Blood Transfusions: No Anesthesia Reactions: No History of Present Illness HPI Narrative A 53-year-old male patient with past medical history of alcohol use disorder, alcoholic cirrhosis was recently diagnosed, was admitted to the hospital 15 days before admission secondary to ascites and pleural effusion s/p drainage which resulted in iatrogenic pneumothorax. Patient was discharged from the hospital after prolonged admission secondary to complex pneumothorax and pleural effusion. Chest tube was inserted for 14 days as the patient continued to drain pleural fluid and also unresolving pneumothorax. Eventually his pneumothorax has resolved and there was minimal pleural output. Chest tube was removed and the patient was discharged and was recommended to follow-up with us to monitor for any complications. 07/06/2024, patient denied any shortness of breath, cough, chest tightness, fever, chills, or any abdominal distention or confusion. Patient was discharged on spironolactone 50 mg daily, midodrine 3 times daily, lactulose as needed, and was instructed to decrease salt intake and fluid restriction. 07/13/2024 Patient today came for follow up, denied any SOB or dizziness, he mentioned he has not seen the GI dr grimaldo, his body weight today increased to 78KG from 76Kg. Denied any abdominal distention or LL swelling. Denied drinking alcohol and he reported that he is keeping track of his bodyweight and his symptoms. 07/27/2024 Patient came for follow up visit after he did an xray of the chest on the 07/26/2024, His x-ray showed significant improvement since his previous x-ray on the June. Patient denied any new symptoms. 08/03/2024, televisit was conducted patient denied any new symptoms. Denied any shortness of breath, fever, chest pain, chills or abdominal distention. Patient reported that he started to take spironolactone 150 mg p.o. daily however after today's he felt dizzy and nauseous so he went back to the previous dose of 100 mg daily. His liver enzymes were done on 27 July 2024 and showed mild elevation of his AST and ALT. Patient denied any alcohol use and denied any new medication. Of note patient when he was discharged his liver enzymes were normal. And his chronic viral marker was also normal. At this time we will continue to monitor closely and to follow-up with the GI recommendations. We still waiting for his insurance authorization for him to be able to book an appointment with Dr. Grimaldo. Objective/Exam Narrative Physical exam: Televisit Assessment & Plan Diagnosis / Problem List (1) Cirrhosis of liver with ascites: Status: Acute Qualifiers: Hepatic cirrhosis type: alcoholic cirrhosis Qualified Code(s): K70.31 - Alcoholic cirrhosis of liver with ascites Assessment & Plan: 07/27/2024 Patient has history of alcohol use disorder, found to have cirrhosis recently diagnosed. Chronic viral marker was negative. At this time even though we believe that the patient has most likely alcohol related liver cirrhosis we will refer the patient for GI specialist to rule out any other causes for his liver cirrhosis and also to screen the patient for esophageal varices. Patient denied any abdominal distention at this time and he reported improvement of his abdominal distention. However his body weight increased at this visit by 1 kg will increase his dose of spironolactone not just only for the ascites but also to prevent reaccumulation of the fluid at the pleural space. Plan: 07/27/2024 ? Referral to GI specialist Dr. Grimaldo, pending authorization at this time ? Next visit we will screen the patient for alpha-fetoprotein and alpha-fetoprotein as the last one was in 2018 ? After 6 months from now we will do for the patient regular ultrasound for the liver as a screening for HCC ? Follow-up with the GI recommendations ? Will send for CMP and CBC as follow-up ? At this time the patient is on spironolactone 100 mg p.o. daily will increase the dose to 150 mg p.o. daily. 08/03/2024 Repeat CMP after 1 month to follow-up on the liver enzymes all Follow-up with the GI recommendations if the visit was conducted Because the patient did not tolerate spironolactone 150 mg we will go back to the previous dose of 100 mg p.o. daily. Will consider adding Lasix small dose of the patient started develop worsening ascites with lower limb edema. (2) Pleural effusion: Status: Acute Assessment & Plan: 07/09/2024 On examination there was decreased on the right middle and lower lung field air entry no added sounds. 07/13/2024 Repeat CXR from June showed mild to moderate re-accumulation of pleural fluid. however, patient asymptomatic, denied any cough SOB, fever or chills 07/27/2024 patient chest x-ray On 26 July was done and showed moderate pleural effusion, no significant change since last visit. Patient denied any shortness of breath, denied any chest pain fever or chills 08/03/2024 televisit was conducted patient denied any new symptoms no chest pain or shortness of breath and no fever or chills. Plan: 07/06/2024 ? Repeat chest x-ray after 1 week ? In case of worsening of your symptoms please return to the ED as soon as possiblea 07/13/2024 ? Repeat chest x-ray after 2 week - Follwo up after 2 weeks - Increase Spronolactone to 100mg PO Qam, Patient was instructed to go back to the original dose if he start to feel dizzy or unsteady or if his SBP become below 100mmHg ? In case of worsening of your symptoms please return to the ED as soon as possible 07/27/2024 will repeat chest x-ray after 1 month Will increase the dose of spironolactone to 150 mg daily If the patient did not improve and still has persistent pleural effusion we will consider referring the patient to physical integration practitioner. 08/03/2024 Will continue same treatment and follow-up chest x-ray next visit after 1 month. Additional Assessment Attending note: I, Stephan German MD, attest that I was physically present for the alva portions of the service completed via telehealth, and I reviewed and discussed the case with the resident and agree with the resident's plans of care as documented above. Stephan German MD Physician Billing Established Patient Established Patient: E/M Level 2-CPT 30281 Office Procedures [facility] Level of Care Nursing/Assessment Patient Status: Established Patient Nursing Assessment/Reassessment: Medication Reconciliation Coordination of Care: Complex Care and Chronic Disease 1-5, Consent,records obtained, informed consent, Lab and Imaging orders and Results/Orders obtained Established Patient Charge Established Patient Point Assignment: 55 Established Patient Point Charge: EP Level 2 (40-75) Telehealth Telemed Phone/Video with patient at home & ,PA,DISULFURIZER TENDER: Yes Telemed Phone/Video with patient in Clinic w/,DISULFURIZER TENDER,PA outside Clinic: No
[2024-09-02 13:44] VITALS: BP 103/64; PULSE 72; RESP 17; TEMP 36.9; O2SAT 95; BMI 27.3
--- NOTE | 2024-09-02 13:44 | PD.RESCLINIC ---
Vital Signs 09/02/24 13:44 Height 1.73 m Height Method Stated Weight 81.76 kg Weight Measurement Method Standing Scale BMI 27.3 BP 103/64 Blood Pressure Source Automatic Cuff Blood Pressure Location Right Upper Arm Position Sitting Respiration 17 Pulse 72 Pulse Source Monitor Temp 98.4 F Temp Source Temporal Artery Scan Pulse Oximetry (%) 95 Oxygen Delivery Method Room Air Allergies/Meds Allergies & Medications Allergies No Known Allergies Allergy (Verified 09/02/24 13:45) Confirmation of home meds: Pt. unable to confirm MA Intake Visit Data Collection New Patient or Established: Established Patient (seen at [facility] within 3 years) Seen by Clinical Staff ONLY (RN/MA): No Reason for Visit:: 1 MO FOLLOW UP Pain Present Currently: No Pain scale:: 0 Pain Scale Used: GonzalesMartha/Numerical Flat Optical Element Maker Required: Yes Primary Care Provider: DEZ WESTBROOK PCP or OBGYN visit in last 3 months: Yes Date of Last PCP or OBGYN visit: 07/27/24 Hx Now: No Do You Feel Safe at Home: Yes Smoking Status Smoking Status: Never smoker Immunization / Flu Flu Vaccine in the Last 12 Months: No Flu Vaccine Exclusion Criteria: Already Received Past Medical History Past Medical History CARDIAC: Positive Cardiac Disorders, Edema and Hypertension; Negative Congestive Heart Failure RESPIRATORY: Negative Chronic Obstructive Pulmonary Disease (COPD) or Asthma GASTROINTESTINAL: Positive Cirrhosis GENITOURINARY: Negative Renal Disease ENDOCRINE: Negative Diabetes Mellitus Type 1 or Diabetes Mellitus Type 2 HEMATOLOGIC: Negative Sickle Cell Disease PSYCHO/SOCIAL: Positive Recreational Drug Use OTHER HISTORY: Positive Hospitalization; Negative Falls, Blood Transfusions or Anesthesia Reactions Family History FAMILY HISTORY: Negative Family Neurologic Problems, Family Psychiatric Problems, Family Respiratory Disorders, Family Cardiac Disorders, Family Gastrointestinal Problems, Family Cancer, Family Surgery or Family Anesthesia Reaction Social History SMOKING STATUS: Smoking status: Never smoker SECOND HAND EXPOSURE: second hand exposure: No ALCOHOL: Alcohol Intake: Former ALCOHOL FREQUENCY: Alcohol Intake Frequency: 3 or More Drinks per Day HOUSING: Housing: House LIVES WITH: Lives With: Alone 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 Patient Portal Questionaires PHQ-9 PHQ-2 Over the last 2 weeks, how often have you been bothered by any of the following problems? 1. Little interest or pleasure in doing things: not at all 2. Feeling down, depressed, or hopeless: not at all Total score: 0 PHQ-9 3. Trouble falling or staying asleep, or sleeping too much: Not at all 4. Feeling tired or having little energy: Not at all 5. Poor appetite or overeating: Not at all 6. Feeling bad about yourself - or that you are a failure or have let yourself or your family down: Not at all 7. Trouble concentrating on things, such as reading the newspaper or watching television: Not at all 8. Moving or speaking so slowly that other people could have noticed? - Or the opposite - being so fidgety or restless that you have been moving around a lot more than usual: not at all 9. Thoughts that you would be better off or of hurting yourself in some way: Not at all Total score: 0 If you checked off any problems, how difficult have these problems made it for you to do your work, take care of things at home, or get along with other people?: not difficult at all Source: Developed by Drs. Romario Landin, Lavern Rocha, Santiago Agee and colleagues, with an educational marialuisa from [employer]. Depression screen completed yes Social History Living Situation History Marital Status: Unknown Lives With: Alone Housing: House Housing Other:: Pt lives alone Tobacco History Smoking Status: Never smoker Second Hand Smoke Exposure: No Alcohol History Alcohol Intake: Former Alcohol Intake Frequency: 3 or More Drinks per Day Domestic Abuse History Do You Feel Safe at Home: Yes Review of Systems Report any current symptoms Only answer those that you have currently: Past Medical History Past Medical History Have you ever been diagnosed with any of the following: Cardiology Problems Congestive Heart Failure: No Edema: Yes Hypertension: Yes Respiratory Problems Chronic Obstructive Pulmonary Disease (COPD): No Asthma: No Stomache/Intestinal Problems Cirrhosis: Yes Genital/Urinary Problems Renal Disease: No Endocrine Problems Diabetes Mellitus Type 1: No Diabetes Mellitus Type 2: No Blood Problems Sickle Cell Disease: No Psychologic Problems Recreational Drug Use: Yes Other Problems Hospitalization: Yes Falls: No Blood Transfusions: No Anesthesia Reactions: No History of Present Illness HPI Narrative A 53-year-old male patient with past medical history of alcohol use disorder, alcoholic cirrhosis was recently diagnosed, was admitted to the hospital 15 days before admission secondary to ascites and pleural effusion s/p drainage which resulted in iatrogenic pneumothorax. Patient was discharged from the hospital after prolonged admission secondary to complex pneumothorax and pleural effusion. Chest tube was inserted for 14 days as the patient continued to drain pleural fluid and also unresolving pneumothorax. Eventually his pneumothorax has resolved and there was minimal pleural output. Chest tube was removed and the patient was discharged and was recommended to follow-up with us to monitor for any complications. 07/06/2024, patient denied any shortness of breath, cough, chest tightness, fever, chills, or any abdominal distention or confusion. Patient was discharged on spironolactone 50 mg daily, midodrine 3 times daily, lactulose as needed, and was instructed to decrease salt intake and fluid restriction. 07/13/2024 Patient today came for follow up, denied any SOB or dizziness, he mentioned he has not seen the GI dr villalpando, his body weight today increased to 78KG from 76Kg. Denied any abdominal distention or LL swelling. Denied drinking alcohol and he reported that he is keeping track of his bodyweight and his symptoms. 07/27/2024 Patient came for follow up visit after he did an xray of the chest on the 07/26/2024, His x-ray showed significant improvement since his previous x-ray on the June. Patient denied any new symptoms. 08/03/2024, televisit was conducted patient denied any new symptoms. Denied any shortness of breath, fever, chest pain, chills or abdominal distention. Patient reported that he started to take spironolactone 150 mg p.o. daily however after today's he felt dizzy and nauseous so he went back to the previous dose of 100 mg daily. His liver enzymes were done on 27 July 2024 and showed mild elevation of his AST and ALT. Patient denied any alcohol use and denied any new medication. Of note patient when he was discharged his liver enzymes were normal. And his chronic viral marker was also normal. At this time we will continue to monitor closely and to follow-up with the GI recommendations. We still waiting for his insurance authorization for him to be able to book an appointment with Dr. Villalpando. 09/02/2024. Patient was seen and examined in the clinic. He reported improvement in his breathing without any shortness of breath.Patient reported that he is able to perform exercise without any difficulty. He denied any lightheadedness/dizziness, cough, fever, chills, abdominal pain, nausea vomiting or burning in urine. Denies constipation. His recent recorded weight around 176 pounds.Patient is currently taking spironolactone 100 mg once every day.Repeat chest x-ray showed improvement in right-sided effusion as compared to previous x-ray. No lower extremity swelling or abdominal swelling noted. Labs from 07/29 revealed mildly elevated liver enzymes AST 181, ALT 153, bilirubin 4.0. BUN 14 and creatinine 0.7. Albumin 3.8. CBC showed hemoglobin 14.4, MCV 103, platelets 103. White count 6.0. It was recommended that patient needs to follow-up with GI specialist for further workup he is currently still awaiting for insurance authorization. Recommended to continue same dose of spironolactone 100 mg once a day daily, refill given for lactulose and added Nephro-Jacqueline. Follow-up in a month with repeat labs. Review of Systems Review of Systems Systems Reviewed: All systems reviewed, normal except as documented Objective/Exam Narrative Physical exam: GENERAL APPEARANCE: AxOx4, generally well-appearing male in no acute distress. Saturating well on room air. HEENT: NC, AT. MMM. EOMI, clear conjunctiva, oropharynx clear. NECK: Supple without lymphadenopathy. No stiffness or restricted ROM. HEART: Regular rate and regular rhythm, normal S1/S2, no m/r/g LUNGS: Decreased breath sounds on bases over right side of lung. Clear breath sounds in right apices and left lung. ABDOMEN: Soft, nontender, nondistended with good bowel sounds heard. BACK: No CVAT, no obvious deformity. EXTREMITIES: Without cyanosis, clubbing or edema. No lower extremity swelling noted. NEUROLOGICAL: Grossly nonfocal. Alert and oriented, moving all 4 extremities. CN not formally tested but appear grossly intact. Observed to ambulate with normal gait. Skin: Warm and dry without any rash. Assessment & Plan Diagnosis / Problem List (1) Cirrhosis of liver with ascites: Status: Acute Qualifiers: Hepatic cirrhosis type: alcoholic cirrhosis Qualified Code(s): K70.31 - Alcoholic cirrhosis of liver with ascites Assessment & Plan: -Patient presented this afternoon without any significant complaints. He reported improvement in his breathing without any shortness of breath. -Patient reported that he is able to perform exercise without any difficulty. He denied any lightheadedness/dizziness, cough, fever, chills, abdominal pain, nausea vomiting or burning in urine. Denies constipation. -Patient had a track of his weight around 176 pounds. -Patient is currently taking spironolactone 100 mg once every day. -Repeat chest x-ray showed improvement in right-sided effusion as compared to previous x-ray. No lower extremity swelling or abdominal swelling noted. - Labs from 07/29 revealed mildly elevated liver enzymes AST 181, ALT 153, bilirubin 4.0. BUN 14 and creatinine 0.7. Albumin 3.8. CBC showed hemoglobin 14.4, MCV 103, platelets 103. White count 6.0. Plan - Recommended to continue spironolactone 100 mg daily -Holding off on starting Lasix as patient is not appearing in fluid overload state, no breathing pb and blood pressure is little soft -Added Nephro-Jacqueline/multivitamin due to history of liver cirrhosis -Refill given for spironolactone and lactulose -Repeat CBC and CMP after a month to monitor potassium and kidney functions -Advised to monitor blood pressure -Awaiting insurance authorization for GI follow-up -Follow-up in a month with new labs Patient was seen and discussed with attending physician, Dr.Watanakunakorn Dr Didi MD PGY 3 Orders: Orders Comprehensive Metabolic Panel 10/04/24 K70.31 - Alcoholic cirrhosis of liver with ascites CBC 10/04/24 K70.31 - Alcoholic cirrhosis of liver with ascites Office Procedures [facility] Level of Care Nursing/Assessment Patient Status: Established Patient Nursing Assessment/Reassessment: Medication Reconciliation, Update PMH in EMR and Vital Signs Coordination of Care: Complex Care and Chronic Disease 1-5, Consent,records obtained, informed consent, Education Simp Pt/Fam, Lab and Imaging orders, Results/Orders obtained and Staff clarify orders Established Patient Charge Established Patient Point Assignment: 105 Established Patient Point Charge: EP Level 3 (80-115) Telehealth Telemed Phone/Video with patient at home & CHARLIE Hensley,NET LEAD ARCHITECT: Yes Telemed Phone/Video with patient in Clinic w/ALONA Hensley,[place] outside Clinic: No TB Screening LTBI Screening: Has patient traveled, was born, or resided for at least 1 month, or frequent border crossing into a country with an elevated TB rate: No Immunosuppression, current or planned (HIV, organ transplant, treated with biologic agents, steroids, or other immunosuppression medication): No Close contact to someone with infectious TB disease during lifetime: No Homelessness or incarceration, current or past: No TB testing indicated at this time (at least 1 yes above): No
== END 2024-09-02 14:16 | disposition home or self-care (01) ==
LOC: HODAHC 13:27
PROVIDERS: PCP Student in an Organized Health Care Education/Training Program; Referring Provider Student in an Organized Health Care Education/Training Program; Supervising Provider Internal Medicine; Visit Provider Student in an Organized Health Care Education/Training Program
DX: K70.31 Alcoholic cirrhosis of liver with ascites (principal); J90 Pleural effusion, not elsewhere classified
CPT/HCPCS: 99212; 99213; G0463

== ENCOUNTER 2024-10-07 13:15 | Outpatient (AMB) | payer MEDICAID, SELFPAY ==
[2024-10-07 13:34] VITALS: BP 103/65; PULSE 68; RESP 18; TEMP 36.8; O2SAT 97; BMI 28.2
--- NOTE | 2024-10-07 13:34 | ACNOTE_ITS ---
Vital Signs 10/07/24 13:34 Height 1.73 m Height Method Stated Weight 84.538 kg Weight Measurement Method Standing Scale BMI 28.2 BP 103/65 Blood Pressure Source Automatic Cuff Blood Pressure Location Right Upper Arm Position Sitting Respiration 18 Pulse 68 Pulse Source Monitor Temp 98.3 F Temp Source Temporal Artery Scan Pulse Oximetry (%) 97 Oxygen Delivery Method Room Air Allergies/Meds Allergies & Medications Allergies No Known Allergies Allergy (Verified 09/02/24 13:45) MA Intake Visit Data Collection New Patient or Established: Established Patient (seen at [facility] within 3 years) Seen by Clinical Staff ONLY (RN/MA): No Reason for Visit:: FOLLOW UP LAB RESULTS Pain Present Currently: No Language: DEZ WESTBROOK Information Technology Program Manager Required: Yes PCP or OBGYN visit in last 3 months: Yes Date of Last PCP or OBGYN visit: 09/02/24 Do You Feel Safe at Home: Yes Authorities Contacted: N/A Smoking Status Smoking Status: Never smoker Immunization / Flu Flu Vaccine in the Last 12 Months: Yes Flu Vaccine Exclusion Criteria: Already Received Past Medical History Past Medical History CARDIAC: Positive Cardiac Disorders, Edema and Hypertension; Negative Congestive Heart Failure RESPIRATORY: Negative Chronic Obstructive Pulmonary Disease (COPD) or Asthma GASTROINTESTINAL: Positive Cirrhosis GENITOURINARY: Negative Renal Disease ENDOCRINE: Negative Diabetes Mellitus Type 1 or Diabetes Mellitus Type 2 HEMATOLOGIC: Negative Sickle Cell Disease PSYCHO/SOCIAL: Positive Recreational Drug Use OTHER HISTORY: Positive Hospitalization; Negative Falls, Blood Transfusions or Anesthesia Reactions Family History FAMILY HISTORY: Negative Family Neurologic Problems, Family Psychiatric Problems, Family Respiratory Disorders, Family Cardiac Disorders, Family Gastrointestinal Problems, Family Cancer, Family Surgery or Family Anesthesia Reaction Social History SMOKING STATUS: Smoking status: Never smoker SECOND HAND EXPOSURE: second hand exposure: No ALCOHOL: Alcohol Intake: Former ALCOHOL FREQUENCY: Alcohol Intake Frequency: 3 or More Drinks per Day HOUSING: Housing: House LIVES WITH: Lives With: Alone 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 Patient Portal Questionaires PHQ-9 PHQ-2 Over the last 2 weeks, how often have you been bothered by any of the following problems? 1. Little interest or pleasure in doing things: not at all PHQ-9 8. Moving or speaking so slowly that other people could have noticed? - Or the opposite - being so fidgety or restless that you have been moving around a lot more than usual: not at all Source: Developed by Drs. Romario Landin, Lavern Rocha, Santiago Agee and colleagues, with an educational marialuisa from [employer]. Social History Living Situation History Lives With: Alone Housing: House Housing Other:: Pt lives alone Tobacco History Smoking Status: Never smoker Second Hand Smoke Exposure: No Alcohol History Alcohol Intake: Former Alcohol Intake Frequency: 3 or More Drinks per Day Domestic Abuse History Do You Feel Safe at Home: Yes Review of Systems Report any current symptoms Only answer those that you have currently: Past Medical History Past Medical History Have you ever been diagnosed with any of the following: Cardiology Problems Congestive Heart Failure: No Edema: Yes Hypertension: Yes Respiratory Problems Chronic Obstructive Pulmonary Disease (COPD): No Asthma: No Stomache/Intestinal Problems Cirrhosis: Yes Genital/Urinary Problems Renal Disease: No Endocrine Problems Diabetes Mellitus Type 1: No Diabetes Mellitus Type 2: No Blood Problems Sickle Cell Disease: No Psychologic Problems Recreational Drug Use: Yes Other Problems Hospitalization: Yes Falls: No Blood Transfusions: No Anesthesia Reactions: No History of Present Illness HPI Narrative A 53-year-old male patient with past medical history of alcohol use disorder, alcoholic cirrhosis was recently diagnosed, was admitted to the hospital 15 days before admission secondary to ascites and pleural effusion s/p drainage which resulted in iatrogenic pneumothorax. Patient was discharged from the hospital after prolonged admission secondary to complex pneumothorax and pleural effusion. Chest tube was inserted for 14 days as the patient continued to drain pleural fluid and also unresolving pneumothorax. Eventually his pneumothorax has resolved and there was minimal pleural output. Chest tube was removed and the patient was discharged and was recommended to follow-up with us to monitor for any complications. 07/06/2024, patient denied any shortness of breath, cough, chest tightness, fever, chills, or any abdominal distention or confusion. Patient was discharged on spironolactone 50 mg daily, midodrine 3 times daily, lactulose as needed, and was instructed to decrease salt intake and fluid restriction. 07/13/2024 Patient today came for follow up, denied any SOB or dizziness, he mentioned he has not seen the GI dr villlapando, his body weight today increased to 78KG from 76Kg. Denied any abdominal distention or LL swelling. Denied drinking alcohol and he reported that he is keeping track of his bodyweight and his symptoms. 07/27/2024 Patient came for follow up visit after he did an xray of the chest on the 07/26/2024, His x-ray showed significant improvement since his previous x- ray on the June. Patient denied any new symptoms. 08/03/2024, televisit was conducted patient denied any new symptoms. Denied any shortness of breath, fever, chest pain, chills or abdominal distention. Patient reported that he started to take spironolactone 150 mg p.o. daily however after today's he felt dizzy and nauseous so he went back to the previous dose of 100 mg daily. His liver enzymes were done on 27 July 2024 and showed mild elevation of his AST and ALT. Patient denied any alcohol use and denied any new med ication. Of note patient when he was discharged his liver enzymes were normal. And his chronic viral marker was also normal. At this time we will continue to monitor closely and to follow-up with the GI recommendations. We still waiting for his insurance authorization for him to be able to book an appointment with Dr. Villalpando. 09/02/2024. Patient was seen and examined in the clinic. He reported improvement in his breathing without any shortness of breath.Patient reported that he is able to perform exercise without any difficulty. He denied any lightheadedness/dizziness, cough, fever, chills, abdominal pain, nausea vomiting or burning in urine. Denies constipation. His recent recorded weight around 176 pounds.Patient is currently taking spironolactone 100 mg once every day.Repeat chest x-ray showed improvement in right-sided effusion as compared to previous x-ray. No lower extremity swelling or abdominal swelling noted. Labs from 07/29 revealed mildly elevated liver enzymes AST 181, ALT 153, bilirubin 4.0. BUN 14 and creatinine 0.7. Albumin 3.8. CBC showed hemoglobin 14.4, MCV 103, platelets 103. White count 6.0. It was recommended that patient needs to follow-up with GI specialist for further workup he is currently still awaiting for insurance authorization. Recommended to continue same dose of spironolactone 100 mg once a day daily, refill given for lactulose and added Nephro-Jacqueline. Follow-up in a month with repeat labs. 10/10/2024 patient was seen at the clinic. Denied any new symptoms he came to follow-up on his lab results. He was noticed to have elevated AST and ALT of 181 and 153 respectively, his total bilirubin also was elevated 4.0. His repeat labs showed significant improvement of his liver function test and almost normalized AST and ALT. On questioning patient denied drinking alcohol hide he reported complete abstinence from alcohol for the past 4 months. He reported that he has been waiting for an appointment with his patient care to hopefully be listed for liver transplantation And to perform regular EGD screening. Patient was scheduled for an appointment after 3 months and was ordered to get liver ultrasound, AFP screening both for hepatocellular carcinoma, and also was ordered to do a CBC and CMP and to follow-up with patient care. Review of Systems Review of Systems Systems Reviewed: All systems reviewed, normal except as documented Objective/Exam Narrative Physical exam: GEN: AOx3, able to speak full sentences HEENT: NC/AC, Ictric, oral mucosa moist, neck supple CVS: RRR, S1-S2 present, no murmurs appreciated RESP: Decreased air entry on the right middle and lower lung field, left lung good air entry with no added sounds GI: soft,non distended, non tender, NBS MSK: able to move all 4 limbs, no lower extremity edema SKIN:warm and dry. Chest tube wound completely healed STEEL ROLLER: CN II-XII and Sensation grossly intact. Assessment & Plan Diagnosis / Problem List (1) Cirrhosis of liver with ascites: Status: Acute Qualifiers: Hepatic cirrhosis type: alcoholic cirrhosis Qualified Code(s): K70.31 - Alcoholic cirrhosis of liver with ascites Assessment & Plan: Patient is tolerating spironolactone well, no dizziness, no lower lip swelling and no abdominal distention. He reported complete abstinent from alcohol since he was admitted to the hospital in June. His liver enzymes were noticed in the last visit to be elevated. However in this visit AST and LT normalized. Patient has not seen a patient care so far and pending insurance authoriza tion. Plan: ? Follow-up after 3 months with AFP, ultrasound to screen for hepatocellular carcinoma, CBC and CMP to follow-up on the liver function. ?Patient was inquiring regarding returning to work. Patient was instructed to return to work to endure a job if necessary only. He was instructed to start gradually to work as tolerated and to avoid heat or chemical exposure Orders: Orders US liver 88 Days K70.31 - Alcoholic cirrhosis of liver with ascites CBC 88 Days K70.31 - Alcoholic cirrhosis of liver with ascites Comprehensive Metabolic Panel 88 Days AFP Non- 88 Days K70.31 - Alcoholic cirrhosis of liver with ascites Office Procedures [facility] Level of Care Nursing/Assessment Patient Status: Established Patient Nursing Assessment/Reassessment: Medication Reconciliation, Update PMH in EMR and Vital Signs Coordination of Care: Complex Care and Chronic Disease 1-5, Consent,records obtained, informed consent, 1 Ins Authorization, Lab and Imaging orders and Results/Orders obtained Established Patient Charge Established Patient Point Assignment: 95 Established Patient Point Charge: Level 3 (80-115)
== END 2024-10-07 14:42 | disposition home or self-care (01) ==
LOC: HODAHC 13:15
PROVIDERS: PCP Student in an Organized Health Care Education/Training Program; Referring Provider Student in an Organized Health Care Education/Training Program; Supervising Provider Internal Medicine; Visit Provider Student in an Organized Health Care Education/Training Program
DX: K70.31 Alcoholic cirrhosis of liver with ascites (principal)
CPT/HCPCS: 99213; G0463